=== PATIENT | male | born 1940 | race Caucasian/White ===

== ENCOUNTER 2016-03-21 10:48 | Inpatient (IN) | payer MEDICARE, BC ==
--- NOTE | 2016-03-21 10:24 | HP ---
DATE OF ADMISSION: CHIEF COMPLAINT: Chest pain. Jeison is a 75-year-old gentleman with diabetes, hypertension, dyslipidemia, has coronary risk factors who presented to me last week complaining of precordial chest pain. He describes it as a chest tightness without clear-cut relieving or exacerbating factors, moderate intensity that was going on for about 4 weeks. Patient underwent a stress test and echocardiogram. His stress test revealed evidence of inferior wall myocardial infarction with areas of estephanie-infarct ischemia. Echocardiogram also showed inferior wall [place]. I asked him to come back and see me sooner than his regular appointment and on followup, patient states that he has had episodes of chest discomfort and had to use nitroglycerin following which the pain had resolved. On coming to my office today, he states that he is having intermittent episodes of precordial chest pressure. Due to his symptomatology, risk factors, abnormal stress test, I advised him to undergo cardiac catheterization today. I have explained to him risks benefits, and alternatives, understood and accepted. Past medical history is significant for diabetes, hypertension, dyslipidemia. Medications include: 1. Atorvastatin 40 q. daily. 2. Glyburide. 3. Lisinopril. 4. Pioglitazone. 5. Aspirin. 6. Imdur. 7. Sublingual nitroglycerin on p.r.n. basis. ALLERGIES: He denies any. Family history is significant for premature coronary artery disease. SOCIAL HISTORY: Significant for smoking. There is no history of EtOH abuse or drug abuse. REVIEW OF SYSTEMS: HEENT is unremarkable. CARDIAC: As described above. RESPIRATORY: Negative. GI: Negative. GENITOURINARY: Negative. ALLERGY/IMMUNOLOGY: Negative. SKIN: Negative. MUSCULOSKELETAL: Significant for arthritis. PSYCHOSOCIAL: Negative. ENDOCRINE: Negative. DERMATOLOGICAL: Negative. CONSTITUTIONAL: Negative. ONCOLOGICAL: Negative. The rest of the system review is not relevant. On exam, patient is comfortable at rest. Vital signs are stable. There is no jugular venous distention. Carotid upstroke is normal. There is no bruit. Chest exam reveals good air entry bilaterally. Heart exam reveals first and second heart sounds. No gallop. No murmur, no rub. Abdomen is soft, nontender. Exam of extremities did not reveal edema. Peripheral pulses are felt. Stress test and echo are abnormal as described above. I do not have any labs on him. ASSESSMENT: 1. Unstable angina. 2. Hypertension. 3. Diabetes. PLAN: Patient will undergo cardiac catheterization today. Will obtain a CBC, lytes, BUN, and creatinine prior. He has been explained of risks, benefits, and alternatives.
[~2016-03-21 10:48] MED LIST: ALPRAZolam 0.25 MG TAB PO PRN; ALPRAZolam 0.5 MG TAB PO PRN; ASPIRIN 325 MG TAB PO STA; ATORVASTATIN 80 MG TAB PO STA; NITROGLYCERIN SL TABS 0.4 MG TAB SUBLINGUAL PRN; SODIUM CHLORIDE 0.9% 1,000 ML in EMPTY BAG 1 BAG IV ONE
[2016-03-21] MEDS ORDERED: ASPIRIN 325 MG TAB ONE (10:50)
[2016-03-21] MEDS ORDERED: LIDOCAINE 2% INJ 20 MG/ML (20 ML MDV) ONE (10:53)
[2016-03-21] MEDS ORDERED: MIDAZOLAM 2 MG/2 ML VIAL ONE (10:53)
[2016-03-21] MEDS ORDERED: diphenhydrAMINE 50 MG/ML 1 ML VIAL ONE (10:54)
[2016-03-21 10:59] LABS: Glucose,Whole Blood 147 mg/dL (75-99)
[2016-03-21 11:06] LABS: Basophils % (A) 1 %; CH 29.7; CHCM 33.8; Eosinophils # (A) 0.1 k/uL (0-0.7); Eosinophils % (A) 1 %; HCT 48.7 % (39.0-53.0); HDW 2.39; HGB 16.1 gm/dL (13.0-17.5); Luc % (Auto) 1; Lymphocytes # (A) 1.6 k/uL (1.0-4.8); Lymphocytes % (A) 21 %; MCH 29.2 pg (25.0-35.0); MCHC 33.1 g/dL (31.0-37.0); MCV 88.3 fL (80.0-100.0); Mean Platelet Volume 7.4; Monocytes # (A) 0.6 k/uL (0-1.0); Monocytes % (A) 8 %; Neutrophils # (A) 5.3 k/uL (1.3-7.7); Neutrophils % (A) 69 %; RBC 5.52 m/uL (4.30-5.90); RDW 13.5 % (11.5-15.5); WBC 7.7 k/uL (3.8-10.6); WBC (Perox) 7.66
[2016-03-21] MEDS ORDERED: diphenhydrAMINE 50 MG/ML 1 ML VIAL IVP ONE (11:16)
[2016-03-21] MEDS ORDERED: MIDAZOLAM 2 MG/2 ML VIAL IV ONE (11:16)
[2016-03-21 11:25] LABS: Anion Gap 11 mmol/L; Blood Urea Nitrogen 16 mg/dL (9-20); Calcium 9.3 mg/dL (8.4-10.2); Carbon Dioxide 24 mmol/L (22-30); Chloride 104 mmol/L (98-107); Glucose 157 mg/dL (74-99); Non-African American GFR(MDRD) >60 (>60 ml/min/1.73 sqM); Potassium 4.4 mmol/L (3.5-5.1); Sodium 139 mmol/L (137-145)
[2016-03-21] MEDS ORDERED: BIVALIRUDIN BOLUS 250 MG/50 ML IV ONE (11:49)
[2016-03-21] MEDS ORDERED: BIVALIRUDIN 250 MG in SODIUM CHLORIDE 0.9% 50 ML IV ONE ×4 (11:50)
--- NOTE | 2016-03-21 11:51 | CC ---
DATE OF SERVICE: INDICATION: Unstable angina. PROCEDURE NOTE: After obtaining informed consent, left heart catheterization and coronary angiogram were performed via the right femoral artery using standard Aspen catheters. Patient tolerated the procedure well without any obvious immediate complications. Patient has history of abdominal aortic aneurysm and surgery in the past. Vascular access was obtained uneventfully we used a long exchange length wire to exchange the catheters in the ascending aorta. FINDINGS: 1. HEMODYNAMICS: Left ventricular end-diastolic pressure is 12 to 16 mm. There is no significant gradient across the aortic valve. 2. LEFT VENTRICULOGRAM: Left ventriculogram was not performed. 3. ANGIOGRAPHIC DATA: LEFT MAIN CORONARY ARTERY: Left main coronary artery appears calcified but is free of significant stenosis. It divides into left anterior descending coronary artery and nondominant circumflex coronary artery. LAD in its midportion shows a 90% stenosis. There are left to right collaterals. Right coronary artery is a large dominant vessel, shows irregular ectatic changes with an area of 95% stenosed in its midportion and subtotal occlusion distally prior to bifurcation into PDA and PLV. CONCLUSION: Severe 2-vessel coronary artery disease as described above. PLAN: I am going to review the angiographic data with Dr. Savage, the on-call french folder and see if we can perform catheter-based revascularization. If not, I will refer him to cardiothoracic surgeon for bypass surgery.
[2016-03-21] MEDS ORDERED: NITROGLYCERIN 1000MCG/10ML SYRINGE INTRACORON ONE (12:21)
[2016-03-21] MEDS ORDERED: HYDROmorphone 2 MG/ML 1 ML SYRINGE ONE (12:21)
[2016-03-21] MEDS ORDERED: HYDROmorphone 2 MG/ML 1 ML SYRINGE IV ONE (12:22)
[2016-03-21] MEDS ORDERED: HEPARIN SODIUM,PORCINE/D5W PMX 25,000 UNIT in DEXTROSE/WATER 1 500ML.BAG IV ONE (12:30)
[2016-03-21] MEDS ORDERED: IOHEXOL 350 MG/ML 100 ML BOTTLE INJ ONE (12:37)
[2016-03-21] MEDS ORDERED: ceFAZolin 1,000 MG in SODIUM CHLORIDE 0.9% IRRIGATIO 1,000 ML IRRIGATION ONE (12:50)
[2016-03-21] MEDS ORDERED: MD COMMUNICATION TO PHARMACY 1 EACH MISC PO ONE ×4 (12:50)
[2016-03-21] MEDS ORDERED: CHLORHEXIDINE GLUCONATE 15 ML CUP MUCOUS MEM ONE (12:50)
[2016-03-21] MEDS ORDERED: ceFAZolin 2 GM in SODIUM CHLORIDE 0.9% 30 ML IVPB ONE (12:50)
--- NOTE | 2016-03-21 12:57 | PTCA ---
DATE OF SERVICE: 03/21/2016 PERFORMING PHYSICIAN: Bhaskar Savage MD, bobbin doffer. PROCEDURE PERFORMED: An attempted balloon angioplasty of the mid left anterior descending artery. INDICATION: This is a pleasant 75-year-old gentleman who sees Dr. Ellington as an outpatient with a known history of coronary artery disease, hypertension, dyslipidemia who was experiencing chest discomfort. He underwent a heart catheterization by Dr. Ellington and was found to have totally occluded right coronary artery in the distal portion, which likely to be chronic and critical disease involving the mid left anterior descending artery. The decision was to proceed with a stenting of the mid LAD. APPROACH: Left common femoral artery. COMPLICATIONS: None. LEVEL OF SEDATION: Moderate. PROCEDURE DESCRIPTION: After diagnostic heart catheterization was performed by Dr. Ellington, I decided to pursue with angioplasty on the LAD. Anticoagulation was initiated using Angiomax. The left main was engaged using an XB3.5 LAD guide. A whisper wire was used to wire the LAD. I tried to balloon the LAD using 2.5 x 15 mm balloon but the balloon would not cross the lesion. At that point, I tried 1.5 mm balloon, but the balloon again would not cross the lesion. At that point, I did double wire the LAD using 2 whisper wires. After that, I tried again to advance the 1.5 balloon and the balloon would not cross the lesion, so I tried 1.2 mm balloon and the balloon also would not cross the lesion. The nose of the balloon was by the lesion. I did inflate the balloon under 14 atmospheres ( ) will not open up the lesion. The following angiogram showed the lesion seems to be stable and with GREGORIO-3 flow. At that point, I decided to stop and consult surgery for the evaluation of CABG. CONCLUSION: An attempted balloon angioplasty on critical mid left anterior descending artery.
[2016-03-21] MEDS ORDERED: RX INFO: IV CONTRAST WAS GIVEN 1 EACH MISC MISCELLANE PRN (14:02)
--- NOTE | 2016-03-21 14:10 | P.CNPUL ---
History of Present Illness Consult date: 03/21/16 Requesting physician: Jefe Ellington Reason for consult: other (Preoperative evaluation and pulmonary clearance) Chief complaint: Chest pain History of present illness: This is a 75-year-old white male, heavy smoker, known history of diabetes, hypertension, dyslipidemia, patient presented on outpatient basis with precordial chest pain. His pain was moderate in intensity, and has been going on for about 4 weeks. His stress test revealed evidence of inferior wall myocardial infarction, and areas of estephanie-infarct ischemia. Echocardiogram showed inferior wall ID hence the patient underwent cardiac catheterization by Dr. Williamson, and he was found to have two-vessel disease. Dr. Farley was consulted for angioplasty, of the mid LAD lesion, attempt was made, but angioplasty could not be done. Patient was also found to have totally occluded RCA in the distal portion which was felt to be chronic and there was irregular ectatic changes with an area of 95% stenosed in its midportion and subtotal occlusion distally prior to the bifurcation into PDA and PLV. Considering the patient had failed attempted angioplasty of LAD, cardiac surgery is being consulted, and patient will likely undergo myocardial revascularization in the next couple of days. Going back to his pulmonary status, patient smoked since he was 17 years old, he smoked on average of one pack per day for so many years. However he denies symptoms of cough wheezing or shortness of breath on exertion. Patient was never diagnosed as having COPD, and never had a PFT on outpatient basis. Physically, the patient is quite active, he is able to climb 2 flights of stairs , able to walk a mile easily and does not have symptoms suggestive year COPD. Denies any headaches or blurred vision or dizziness. Denies any nausea vomiting abdominal pain. Denies shortness of breath as noted above. Denies any symptoms to suggest significant degenerative joint disease. Cardiac luque please refer to above. Review of Systems 14 point review of systems were obtained, please refer to pertinent positives and negatives in HPI. Past Medical History Past Medical History: Cancer, Diabetes Mellitus, Eye Disorder, Hypertension, Prostate Disorder Additional Past Medical History / Comment(s): HX MELANOMA, BILAT CATARACTS History of Any Multi-Drug Resistant Organisms: None Reported Additional Past Surgical History / Comment(s): HX COLONOSCOPY, AND AAA-2007 Past Anesthesia/Blood Transfusion Reactions: No Reported Reaction Past Psychological History: Anxiety Smoking Status: Current every day smoker Past Alcohol Use History: None Reported Past Drug Use History: None Reported Medications and Allergies Home Medications Medication Instructions Recorded Confirmed Type Ezetimibe/Simvastatin [Vytorin 1 each PO DAILY 08/20/13 03/21/16 History 10-40 mg Tablet] Lisinopril [Zestril] 10 mg PO DAILY 08/20/13 03/21/16 History Dutasteride/Tamsulosin HCl [Herminia 1 tab PO DAILY 02/24/15 03/21/16 History 0.5-0.4 mg Capsule] Pioglitazone HCl [Pioglitazone HCl] 45 mg PO DAILY 02/24/15 03/21/16 History glyBURIDE/METFORMIN HCL 2 tab PO PC-BRKFST 02/24/15 03/21/16 History [glyBURIDE/METFORMIN HCL 5-500 mg] Fish Oil/Dha/Epa [Fish Oil 1,200 1 cap PO DAILY 03/21/16 03/21/16 History mg Fish Oil] Allergies Allergy/AdvReac Type Severity Reaction Status Date / Time No Known Allergies Allergy Verified 02/24/15 11:23 Physical Exam Vitals: Vital Signs Temp Pulse Resp BP BP Pulse Ox 03/21/16 13:39 64 16 127/65 94 L 03/21/16 13:23 64 16 121/62 95 03/21/16 13:10 70 16 115/64 96 03/21/16 12:55 78 16 130/66 95 03/21/16 11:06 98.2 F 82 16 141/82 96 Intake and Output 03/20/16 03/21/16 03/21/16 22:59 06:59 14:59 Intake Total 240.2 Balance 240.2 Intake: IV 240.2 Sodium Chloride 0.9% 1, 0 000 ml In Empty Bag 1 bag @ 1 ML/KG/HR 97.52 mls/ hr IV .[id number] ONE Rx#: [id number] Other: Weight 97.522 kg Patient Weight 03/22/16 06:59 Weight 97.522 kg Physical Exam: Revealed a 75-year-old in no distress HEENT:[Neck is supple.] [No neck masses.] [No thyromegaly.] [No JVD.] Chest: [Clear throughout, no crackles, no rhonchi, no wheezes.] Cardiac Exam: [Normal S1 and S2, no S3 gallop, no murmur.] Abdomen: [Soft, nontender, no megaly, no rebound, no guarding, normal bowel sounds.] Extremities: [No clubbing, no edema, no cyanosis.] Neurological Exam: [No focal neurologic deficit.] Results - Laboratory Findings CBC and BMP: 03/21/16 10:55 03/21/16 10:55 Abnormal lab findings: Abnormal Labs 03/21/16 03/21/16 10:55 10:57 Creatinine 0.60 L Glucose 157 H POC Glucose (mg/dL) 147 H Assessment and Plan Plan: Impression: 1 2vessel coronary artery disease, patient is yet to be seen by cardiac surgery for possible myocardial revascularization. 2 suspect underlying COPD, probably mild based on his symptoms, however I will go ahead and recommended a bedside PFT and a chest x-ray. 3 history of multiple comorbidities including diabetes, hypertension, dyslipidemia, and recent symptoms of unstable angina. Recommendation: Based on the clinical findings, patient is considered low operative risk, however I will go ahead and recommended a bedside PFT and a chest x-ray for further evaluation of his underlying COPD. We'll continue to follow. Time with Patient: Greater than 30
[2016-03-21] MEDS ORDERED: SODIUM CHLORIDE 0.9% 1,000 ML IV SCH (14:15)
[2016-03-21] MEDS ORDERED: HEPARIN SODIUM,PORCINE 5,000 UNIT/ML 1 ML VIAL IV PRN (14:21)
[2016-03-21] MEDS ORDERED: ATROPINE SULFATE 0.1 MG/ML 10ML SYRINGE ONE (14:41)
--- NOTE | 2016-03-21 14:55 | P.GSCN ---
History of Present Illness Consult date: 03/21/16 Reason for Consult: coronary artery disease History of present illness: The patient is a 75 year old male who reports intermittent chest pain accompanied by mild shortness of breath for several weeks now. He also reports radiation to the left upper extremity. Stress test was found to be abnormal. Cardiac catheterization today revealed a high grade LAD lesion which was not amenable to PCI. I was asked to evaluate him for treatment recommendations. His was present at the time of my evaluation. Review of Systems All systems: negative - Cardiovascular Reports chest pain, Reports dyspnea on exertion - Genitourinary Reports urinary hesitancy Past Medical History Past Medical History: Cancer, Diabetes Mellitus, Eye Disorder, Hyperlipidemia, Hypertension, Prostate Disorder Additional Past Medical History / Comment(s): HX MELANOMA, BILAT CATARACTS History of Any Multi-Drug Resistant Organisms: None Reported Past Surgical History: Tonsillectomy Additional Past Surgical History / Comment(s): HX COLONOSCOPY, AND AAA-2007 Past Anesthesia/Blood Transfusion Reactions: No Reported Reaction Past Psychological History: Anxiety Smoking Status: Current every day smoker Past Alcohol Use History: None Reported Past Drug Use History: None Reported Medications and Allergies Home Medications Medication Instructions Recorded Confirmed Type Ezetimibe/Simvastatin [Vytorin 1 each PO DAILY 08/20/13 03/21/16 History 10-40 mg Tablet] Lisinopril [Zestril] 10 mg PO DAILY 08/20/13 03/21/16 History Dutasteride/Tamsulosin HCl [Herminia 1 tab PO DAILY 02/24/15 03/21/16 History 0.5-0.4 mg Capsule] Pioglitazone HCl [Pioglitazone HCl] 45 mg PO DAILY 02/24/15 03/21/16 History glyBURIDE/METFORMIN HCL 2 tab PO PC-BRKFST 02/24/15 03/21/16 History [glyBURIDE/METFORMIN HCL 5-500 mg] Fish Oil/Dha/Epa [Fish Oil 1,200 1 cap PO DAILY 03/21/16 03/21/16 History mg Fish Oil] Allergies Allergy/AdvReac Type Severity Reaction Status Date / Time No Known Allergies Allergy Verified 02/24/15 11:23 Surgical - Exam Vital Signs Temp Pulse Resp BP Pulse Ox 98.2 F 82 16 141/82 96 03/21/16 11:06 03/21/16 11:06 03/21/16 11:06 03/21/16 11:06 03/21/16 11:06 - General well developed, well nourished, no distress - Eyes normal ocular movement - Neck no masses, trachea midline - Respiratory normal expansion, normal respiratory effort, clear to auscultation - Cardiovascular Rhythm: regular Heart Sounds: normal: S1, S2 - Abdomen Abdomen: soft, non tender - Integumentary no rash - Psychiatric oriented to time, oriented to person, oriented to place Results - Labs 03/21/16 10:55 03/21/16 10:55 Abnormal Lab Results - Last 24 Hours (Table) 03/21/16 03/21/16 Range/Units 10:55 10:57 Creatinine 0.60 L (0.66-1.25) mg/dL Glucose 157 H (74-99) mg/dL POC Glucose (mg/dL) 147 H (75-99) mg/dL Diabetes panel 03/21/16 Range/Units 10:55 Sodium 139 (137-145) mmol/L Potassium 4.4 (3.5-5.1) mmol/L Chloride 104 (98-107) mmol/L Carbon Dioxide 24 (22-30) mmol/L BUN 16 (9-20) mg/dL Creatinine 0.60 L (0.66-1.25) mg/dL Glucose 157 H (74-99) mg/dL Calcium 9.3 (8.4-10.2) mg/dL Calcium panel 03/21/16 Range/Units 10:55 Calcium 9.3 (8.4-10.2) mg/dL Pituitary panel 03/21/16 Range/Units 10:55 Sodium 139 (137-145) mmol/L Potassium 4.4 (3.5-5.1) mmol/L Chloride 104 (98-107) mmol/L Carbon Dioxide 24 (22-30) mmol/L BUN 16 (9-20) mg/dL Creatinine 0.60 L (0.66-1.25) mg/dL Glucose 157 H (74-99) mg/dL Calcium 9.3 (8.4-10.2) mg/dL Adrenal panel 03/21/16 Range/Units 10:55 Sodium 139 (137-145) mmol/L Potassium 4.4 (3.5-5.1) mmol/L Chloride 104 (98-107) mmol/L Carbon Dioxide 24 (22-30) mmol/L BUN 16 (9-20) mg/dL Creatinine 0.60 L (0.66-1.25) mg/dL Glucose 157 H (74-99) mg/dL Calcium 9.3 (8.4-10.2) mg/dL Assessment and Plan (1) Coronary artery disease Status: Acute Plan: The patient's cardiac catheterization was personally reviewed. He appears to have targets suitable for bypass. He has a high grade LAD lesion which is likely his culprit lesion. He also has an occluded, heavily calcified distal RCA. It is difficult to tell whether there is a target amenable to bypass in the right system. PCI was unable to be performed by Dr. Yost. A coronary artery bypass was recommended. The risks, benefits, and alternatives to surgery were discussed with the patient and his . All questions were answered. He is currently chest-pain free and resting comfortably following cardiac catheterization. We will therefore proceed with pre-operative workup. He has been tentatively scheduled for 03/23/2016. Time with Patient: Greater than 30
[2016-03-21 15:00] LABS: Basophils % (A) 1 %; CH 29.5; CHCM 33.4; Eosinophils # (A) 0.1 k/uL (0-0.7); Eosinophils % (A) 1 %; HCT 45.6 % (39.0-53.0); HDW 2.38; Luc # (Auto) 0.09; Luc % (Auto) 2; Lymphocytes # (A) 1.7 k/uL (1.0-4.8); Lymphocytes % (A) 29 %; MCH 29.3 pg (25.0-35.0); Mean Platelet Volume 7.2; Monocytes # (A) 0.4 k/uL (0-1.0); Monocytes % (A) 7 %; Neutrophils # (A) 3.6 k/uL (1.3-7.7); Neutrophils % (A) 61 %; RBC 5.12 m/uL (4.30-5.90); RDW 13.4 % (11.5-15.5); WBC 5.9 k/uL (3.8-10.6); WBC (Perox) 5.52
[2016-03-21 15:09] LABS: INR 1.2 (<1.1); Partial Thromboplastin Time 46.2 sec (22.0-30.0); Prothrombin Time 12.2 sec (9.0-12.0)
[2016-03-21 15:12] LABS: Hemoglobin A1C 7.8 % (4.2-6.1)
[2016-03-21 15:15] LABS: ALT 30 U/L (21-72); AST 15 U/L (17-59); Alkaline Phosphatase 57 U/L (38-126); Anion Gap 7 mmol/L; Blood Urea Nitrogen 14 mg/dL (9-20); Calcium 8.7 mg/dL (8.4-10.2); Carbon Dioxide 29 mmol/L (22-30); Chloride 103 mmol/L (98-107); Cholesterol 130 mg/dL (<200); Glucose 72 mg/dL (74-99); HDL Cholesterol 43 mg/dL (40-60); Magnesium 1.9 mg/dL (1.6-2.3); Non-African American GFR(MDRD) >60 (>60 ml/min/1.73 sqM); Potassium 4.5 mmol/L (3.5-5.1); Sodium 139 mmol/L (137-145); Total Bilirubin 0.7 mg/dL (0.2-1.3); Total Protein 6.2 g/dL (6.3-8.2); Triglycerides 79 mg/dL (<150)
[2016-03-21 15:44] LABS: Hepatitis B Surface Ag Index 0.05
[2016-03-21 15:50] LABS: Hepatitis B Core IgM Index 0.03
[2016-03-21 16:01] LABS: Hepatitis C Virus IgG Index 0.06
[2016-03-21 16:06] LABS: Hepatitis C Virus IgG Ab Negative (Negative)
--- NOTE | 2016-03-21 17:10 | CONS ---
DATE OF CONSULTATION: REASON FOR CONSULTATION: Management of diabetes mellitus and recommendations regarding diabetic medications. HISTORY OF PRESENT ILLNESS: The patient is a 75-year-old gentleman with a history of diabetes mellitus, dyslipidemia, came in with chest pain and found to have positive stress test. Patient underwent cardiac catheterization, which showed two vessel disease involving the mid LAD because of which cardiothoracic surgery evaluated and patient is scheduled to get coronary artery bypass grafting and patient had failed attempted angioplasty of LAD. Patient denied any chest pain at this point of time. Denied any fever, chills, nausea, vomiting, abdominal pain. REVIEW OF SYSTEMS: CONSTITUTIONAL: No fever, no malaise, no fatigue. HEENT: No recent visual problems or hearing problems. Denied any sore throat. CARDIOVASCULAR: No chest pain, orthopnea, PND, no palpitations, no syncope. PULMONARY: No shortness of breath, no cough, no hemoptysis. GASTROINTESTINAL: No diarrhea, no nausea, no vomiting, no abdominal pain. Normoactive bowel sounds. NEUROLOGICAL: No headaches, no weakness, no numbness. HEMATOLOGICAL: Denies any bleeding or petechiae. GENITOURINARY: Denies any burning micturition, frequency, or urgency. MUSCULOSKELETAL/RHEUMATOLOGICAL: Denies any joint pain, swelling, or any muscle pain. ENDOCRINE: Denies any polyuria or polydipsia. The rest of the 14 point review of systems is negative. PAST MEDICAL HISTORY: Cancer, type 2 diabetes mellitus, hypertension, benign prostatic hypertrophy, melanoma, bilateral cataracts, history of colonoscopy in the past, abdominal aortic aneurysm in 2007, anxiety disorder. The patient does smoke. Denied any alcohol abuse or any drug abuse. FAMILY HISTORY: Significant for COPD and emphysema in the family. PHYSICAL EXAMINATION: Temperature 98.7, pulse of 88, respiratory rate of 18, blood pressure 124/67, saturating at 92% on room air. GENERAL: The patient is alert and oriented x3, not in any acute distress. Well developed, well nourished. HEENT: Pupils are round and equally reacting to light. EOMI. No scleral icterus. No conjunctival pallor. Normocephalic, atraumatic. No pharyngeal erythema. No thyromegaly. CARDIOVASCULAR: S1 and S2 present. No murmurs, rubs, or gallops. PULMONARY: Chest is clear to auscultation, no wheezing or crackles. ABDOMEN: Soft, nontender, nondistended, normoactive bowel sounds. No palpable organomegaly. MUSCULOSKELETAL: No joint swelling or deformity. EXTREMITIES: No cyanosis, clubbing, or pedal edema. NEUROLOGICAL: Gross neurological examination did not reveal any focal deficits. SKIN: No rashes. LABORATORY DATA: CMP, essentially within normal limits. ASSESSMENT AND PLAN: 1. Coronary artery disease with two vessel occlusion and patient appears to have either ( ) patient may have had either [id number] myocardial infarction or unstable angina. Patient is scheduled to get coronary artery bypass grafting here. 2. Chronic obstructive pulmonary disease without any acute exacerbation. 3. Nicotine abuse. Counseling was provided. 4. Hypertension. Management I will leave it up to cardiology. 5. Type 2 diabetes mellitus. Hold off on diabetic medications. Patient's hemoglobin A1C is elevated. We will start him on sliding scale. Patient may end up needing Lantus at this time. Thank you for letting me participate in the patient's care.
--- NOTE | 2016-03-21 17:43 | US ---
EXAMINATION TYPE: US carotid duplex BILAT DATE OF EXAM: 03/21/2016 4:44 PM COMPARISON: NONE CLINICAL HISTORY: Pre CABG evaluation. EXAM MEASUREMENTS: RIGHT: Peak Systolic Velocity (PSV) cm/sec ----- Right CCA: 48.3 ----- Right ICA: 67.1 ----- Right ECA: 62.6 ICA/CCA ratio: 1.4 RIGHT: End Diastole cm/sec ----- Right CCA: 6.5 ----- Right ICA: 14.7 ----- Right ECA: 9.8 LEFT: Peak Systolic Velocity (PSV) cm/sec ----- Left CCA: 80.5 ----- Left ICA: 59.2 ----- Left ECA: 65.9 ICA/CCA ratio: 0.7 LEFT: End Diastole cm/sec ----- Left CCA: 17.1 ----- Left ICA: 16.5 ----- Left ECA: 7.6 VERTEBRALS (direction of flow): Right Vertebral: Antegrade Left Vertebral: Antegrade TECHNOLOGIST IMPRESSION: No abnormally elevated velocities are noted in bilateral carotid systems, b ut intimal wall changes are present at bilateral carotid bifurcation. Atheromatous plaque is present on the left. Significant flow-limiting stenosis is not identified base d on velocities. IMPRESSION: 1. Intimal thickening with some plaquing present on the left. Significant flow-limiting stenosis by u ltrasound velocity is not evident. Criteria for Assigning % of Stenosis / Diameter reduction (Estimation based on the indirect measurements of the internal carotid artery velocities (ICA PSV). 1. Normal (no stenosis)=ICA PSV < 125 cm/s: ratio < 2.0: ICA EDV<40 cm/s. 2. Less than 50% stenosis=ICA PSV < 125 cm/s: ratio < 2.0: ICA EDV<40 cm/s. 3. 50 to 69% stenosis=ICA PSV of 125 to 230 cm/s: ration 2.0 ? 4.0: ICA EDV 40-100 cm/s. 4. Greater than 70% stenosis to near occlusion= ICA PSV > 230 cm/s: ratio > 4.0: ICA EDV > 100 cm/s. 5. Near occlusion= ICA PSV velocities may be low or undetectable: variable ratio and ICA EDV. 6. Total occlusion=unable to detect flow.
[2016-03-21] MEDS: HEPARIN SODIUM,PORCINE/D5W PMX 25,000 UNIT in DEXTROSE/WATER 1 500ML.BAG IV SCH (17:57)
[2016-03-21 20:44] LABS: Appearance,Urine Clear (Clear); Bilirubin,Urine Negative (Negative); Glucose,Urine (UA) Trace (Negative); Ketones,Urine Negative (Negative); Leukocyte Esterase,Urine Negative (Negative); Nitrite,Urine Negative (Negative); PH, Urine 6.5 (5.0-8.0); Protein,Urine Negative (Negative); Specific Gravity,Urine 1.041 (1.001-1.035); UA Billing (MACRO vs. MICRO) CHEM; Urobilinogen,Urine <2.0 mg/dL (<2.0)
[2016-03-21 22:54] LABS: Glucose,Whole Blood 136 mg/dL (75-99)
[2016-03-21] MEDS: METOPROLOL TARTRATE 12.5 MG TAB PO SCH (23:03)
[2016-03-21] MEDS: MUPIROCIN 2% OINT 22 GM TUBE NASAL SCH (23:06)
[2016-03-22 04:10] LABS: Basophils % (A) 0 %; CH 29.9; CHCM 33.1; Eosinophils # (A) 0.1 k/uL (0-0.7); Eosinophils % (A) 1 %; HCT 48.3 % (39.0-53.0); HDW 2.37; HGB 15.5 gm/dL (13.0-17.5); Luc # (Auto) 0.08; Luc % (Auto) 1; Lymphocytes # (A) 1.9 k/uL (1.0-4.8); Lymphocytes % (A) 22 %; MCH 29.2 pg (25.0-35.0); MCHC 32.2 g/dL (31.0-37.0); MCV 90.8 fL (80.0-100.0); Mean Platelet Volume 7.1; Monocytes # (A) 0.6 k/uL (0-1.0); Monocytes % (A) 7 %; Neutrophils # (A) 5.9 k/uL (1.3-7.7); Neutrophils % (A) 69 %; RBC 5.32 m/uL (4.30-5.90); RDW 13.4 % (11.5-15.5); WBC 8.5 k/uL (3.8-10.6); WBC (Perox) 8.92
[2016-03-22 06:02] LABS: Glucose,Whole Blood 140 mg/dL (75-99)
[2016-03-22] MEDS: INSULIN LISPRO (humaLOG) 300 UNIT/3 ML VIAL SQ SCH ×4 (06:52→21:27)
[2016-03-22] MEDS: METOPROLOL TARTRATE 12.5 MG TAB PO SCH ×2 (08:46→21:27)
[2016-03-22] MEDS: FINASTERIDE 5 MG TAB PO SCH (08:46)
[2016-03-22] MEDS: TAMSULOSIN 0.4 MG CAP.ER.24H PO SCH (08:46)
[2016-03-22] MEDS: MUPIROCIN 2% OINT 22 GM TUBE NASAL SCH ×2 (08:47→21:27)
--- NOTE | 2016-03-22 10:15 | XR ---
EXAMINATION TYPE: XR chest 2V DATE OF EXAM: 03/22/2016 9:37 AM COMPARISON: 02/24/2015 HISTORY: 75-year-old male preoperative cardiac surgery TECHNIQUE: Frontal and lateral views FINDINGS: Heart is normal size. Aorta within normal limits. There is mild interstitial prominence with mild hyp erinflation suggesting underlying emphysema. No consolidation or pleural effusion seen. IMPRESSION: Chronic changes, possible underlying COPD. No acute process seen.
--- NOTE | 2016-03-22 10:15 | P.PN ---
Subjective Principal diagnosis: Coronary artery disease requiring coronary artery bypass grafting. Patient currently sitting up in bed in no apparent distress. Denies any complaints. Objective - Vital Signs Vital signs: Vital Signs Temp 96.8 F L 03/22/16 08:00 Pulse 60 03/22/16 08:00 Resp 18 03/22/16 08:00 BP 140/73 03/22/16 08:00 Pulse Ox 95 03/22/16 08:00 Intake & Output 03/21/16 03/22/16 03/22/16 18:59 06:59 18:59 Intake Total 240.2 512.680 Output Total 1340 600 Balance 240.2 -827.320 -600 Weight 97.522 kg 94.4 kg Intake: IV 240.2 Sodium Chloride 0.9% 1, 0 000 ml In Empty Bag 1 bag @ 1 ML/KG/HR 97.52 mls/ hr IV .[id number] ONE Rx#: [id number] Intake, IV Titration 272.680 Amount Heparin Sodium,Porcine/ 272.680 D5w Pmx 25,000 unit In Dextrose/Water 1 500ml. bag @ 10.25 UNITS/KG/HR 19.99 mls/hr IV .Q24H [facility] Rx#:[id number] Oral 240 Output: Urine 1340 600 Other: Voiding Method Urinal Urinal # Voids 1 1 - Constitutional General appearance: Present: cooperative, no acute distress - Respiratory Details: Lungs sounds diminished in the bases bilaterally, respirations even and nonlabored. Currently on room air. - Cardiovascular Details: Clear S1-S2. Regular rate and rhythm, sinus bradycardia on the monitor. No edema present. Palpable radial, DP, PT pulses. - Gastrointestinal Gastrointestinal Comment(s): Abdomen soft, nontender, nondistended. Active bowel sounds 4 quadrants. Tolerating diet. - Genitourinary Genitourinary Comment(s): Voiding clear yellow urine per urinal - Integumentary Integumentary Comment(s): Skin warm, pink, dry, intact. Right groin status post cardiac cath soft, nontender. - Neurologic Neurologic Comment(s): Alert and oriented 3. Following all commands. - Musculoskeletal Musculoskeletal Comment(s): Able to ambulate to and from the bathroom. - Psychiatric Psychiatric: Present: appropriate affect, intact judgment & insight - Allied health notes Allied health notes reviewed: nursing - Labs CBC & Chem 7: 03/22/16 03:58 03/21/16 14:44 Labs: Abnormal Lab Results - Last 24 Hours (Table) 03/21/16 03/21/16 03/21/16 Range/Units 10:55 10:57 14:44 PT (9.0-12.0) sec APTT (22.0-30.0) sec Creatinine 0.60 L (0.66-1.25) mg/dL Glucose 157 H 72 L (74-99) mg/dL POC Glucose (mg/dL) 147 H (75-99) mg/dL Hemoglobin A1c (4.2-6.1) % AST 15 L (17-59) U/L Total Protein 6.2 L (6.3-8.2) g/dL Ur Specific [place] (1.001-1.035) Urine Glucose (UA) (Negative) Crossmatch 03/21/16 03/21/16 03/21/16 Range/Units 14:44 14:44 20:28 PT 12.2 H (9.0-12.0) sec APTT 46.2 H 35.0 H (22.0-30.0) sec Creatinine (0.66-1.25) mg/dL Glucose (74-99) mg/dL POC Glucose (mg/dL) (75-99) mg/dL Hemoglobin A1c 7.8 H (4.2-6.1) % AST (17-59) U/L Total Protein (6.3-8.2) g/dL Ur Specific [place] (1.001-1.035) Urine Glucose (UA) (Negative) Crossmatch 03/21/16 03/21/16 03/22/16 Range/Units 20:39 22:53 03:58 PT (9.0-12.0) sec APTT (22.0-30.0) sec Creatinine (0.66-1.25) mg/dL Glucose (74-99) mg/dL POC Glucose (mg/dL) 136 H (75-99) mg/dL Hemoglobin A1c (4.2-6.1) % AST (17-59) U/L Total Protein (6.3-8.2) g/dL Ur Specific [place] 1.041 H (1.001-1.035) Urine Glucose (UA) Trace H (Negative) Crossmatch See Detail 03/22/16 03/22/16 Range/Units 03:58 06:01 PT (9.0-12.0) sec APTT 50.4 H (22.0-30.0) sec Creatinine (0.66-1.25) mg/dL Glucose (74-99) mg/dL POC Glucose (mg/dL) 140 H (75-99) mg/dL Hemoglobin A1c (4.2-6.1) % AST (17-59) U/L Total Protein (6.3-8.2) g/dL Ur Specific [place] (1.001-1.035) Urine Glucose (UA) (Negative) Crossmatch Microbiology - Last 24 Hours (Table) 03/21/16 20:39 Urine Culture - Preliminary Urine,Clean Catch 03/21/16 14:56 Nasal Screen MRSA/MSSA (JESSY) - Preliminary Nasal Swab Assessment and Plan (1) Coronary artery disease Status: Acute (2) Hypertension Status: Acute (3) Hyperlipidemia Status: Acute (4) Diabetes mellitus Status: Acute Plan: 1. Continue aspirin, beta micaela, statin. 2. Hold Plavix, Enoch 3. Await results of all preoperative testing. 4. Preop teaching started, continue teaching. 5. Anticipate coronary artery bypass grafting tomorrow pending results of preop testing. 6. More recs to follow dependent on patient's status. Time with Patient: Greater than 30
--- NOTE | 2016-03-22 10:23 | CT ---
EXAMINATION TYPE: CT chest wo con DATE OF EXAM: 03/22/2016 9:49 AM COMPARISON: 03/22/2016 HISTORY: 75-year-old male precardiac surgery TECHNIQUE: Contiguous axial scanning of the chest without IV contrast. Coronal and sagittal reconstru ctions performed. CT DLP: 321.50 mGycm Automated exposure control for dose reduction was used. FINDINGS: The heart is upper limits of normal in size without pericardial effusion. Coronary vessel calcificati ons are present under a marker for coronary artery disease. There is borderline aneurysm of the ascending aorta at 4.0 cm with mild atherosclerotic arch calcific ations, conventional arch vessel branching anatomy, and mild aneurysm of the upper descending thoraci c aorta at 3.2 cm. There is ectasia of the lower descending thoracic aorta near the diaphragmatic hia tus at 2.8 cm. Large caliber to the right and left main pulmonary arteries at 2.7 and 2.9 cm, respectively, suggesti ng underlying pulmonary arterial hypertension. Nonenlarged mediastinal lymph nodes measure up to 7 mm in the prevascular space and 9 mm at the right tracheobronchial angle. No thoracic lymphadenopathy by CT size criteria. There is mild diffuse bronchial wall thickening with minimal scattered emphysematous cysts. Dependent atelectasis posteriorly within the lungs. No consolidation or pleural effusion. There is a 6 mm anterior right middle lobe pulmonary nodule axial image 35 which warrants further fol low-up. Visualized upper abdomen shows either dense inspissated sludge within the gallbladder or gravel. If I V contrast was recently given to the patient and the patient has renal failure, this could also repre sent vicarious excretion of contrast from the biliary system. The hilar splenule is present. Bones: Endplate spondylosis lower thoracic spine. No osseous destructive process. IMPRESSION: 1. MILD DIFFUSE BRONCHIAL WALL THICKENING SUGGESTS BRONCHITIS OR CHRONIC ASTHMA. MINIMAL SCATTERED EM PHYSEMATOUS CYSTS ARE PRESENT. 2. FINDINGS SUGGEST UNDERLYING PULMONARY ARTERIAL HYPERTENSION. 3. 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 4. 6 MM RIGHT MIDDLE LOBE PULMONARY NODULE. RECOMMEND 6, 12, AND 24 MONTH FOLLOW-UP EXAMS TO ENSURE S TABILITY AND A BENIGN ETIOLOGY. 5. SOME DENSE LAYERING MATERIAL WITHIN THE PARTIALLY VISUALIZED GALLBLADDER. UNCERTAIN IF THIS REPRES ENTS INSPISSATED SLUDGE, GRAVEL, OR IF THE PATIENT RECEIVED IV CONTRAST RECENTLY AND HAS RENAL FAILU RE, VICARIOUS EXCRETION OF CONTRAST FROM THE BILIARY SYSTEM IS AN ADDITIONAL POSSIBILITY.
[2016-03-22] MEDS ORDERED: IPRATROPIUM-ALBUTEROL 3 ML NEB INHALATION PRN (11:07)
[2016-03-22 11:46] LABS: Glucose,Whole Blood 175 mg/dL (75-99)
[2016-03-22] MEDS: LISINOPRIL 5 MG TAB PO SCH (12:10)
--- NOTE | 2016-03-22 12:53 | P.PN ---
Subjective Principal diagnosis: Unstable angina History of present illness: This is a 75-year-old white male, heavy smoker, known history of diabetes, hypertension, dyslipidemia, patient presented on outpatient basis with precordial chest pain. His pain was moderate in intensity, and has been going on for about 4 weeks. His stress test revealed evidence of inferior wall myocardial infarction, and areas of estephanie-infarct ischemia. Echocardiogram showed inferior wall TN hence the patient underwent cardiac catheterization by Dr. Williamson, and he was found to have two-vessel disease. Dr. Farley was consulted for angioplasty, of the mid LAD lesion, attempt was made, but angioplasty could not be done. Patient was also found to have totally occluded RCA in the distal portion which was felt to be chronic and there was irregular ectatic changes with an area of 95% stenosed in its midportion and subtotal occlusion distally prior to the bifurcation into PDA and PLV. Considering the patient had failed attempted angioplasty of LAD, cardiac surgery is being consulted, and patient will likely undergo myocardial revascularization in the next couple of days. Going back to his pulmonary status, patient smoked since he was 17 years old, he smoked on average of one pack per day for so many years. However he denies symptoms of cough wheezing or shortness of breath on exertion. Patient was never diagnosed as having COPD, and never had a PFT on outpatient basis. Physically, the patient is quite active, he is able to climb 2 flights of stairs , able to walk a mile easily and does not have symptoms suggestive year COPD. Denies any headaches or blurred vision or dizziness. Denies any nausea vomiting abdominal pain. Denies shortness of breath as noted above. Denies any symptoms to suggest significant degenerative joint disease. Cardiac luque please refer to above. Patient was reevaluated today on 03/22/2016, he continues to do well, however on physical examination he was noted to have some wheezing hence I started the patient today on DuoNeb. Patient is scheduled to undergo myocardial revascularization tomorrow in a.m. CT of the chest was reviewed, bedside PFT is pending. Objective - Vital Signs Vital signs: Vital Signs Temp 97.4 F L 03/22/16 11:56 Pulse 59 L 03/22/16 11:56 Resp 18 03/22/16 11:56 BP 148/75 03/22/16 11:56 Pulse Ox 97 03/22/16 11:56 Intake & Output 03/21/16 03/22/16 03/22/16 18:59 06:59 18:59 Intake Total 240.2 512.680 Output Total 1340 600 Balance 240.2 -827.320 -600 Weight 97.522 kg 94.4 kg Intake: IV 240.2 Sodium Chloride 0.9% 1, 0 000 ml In Empty Bag 1 bag @ 1 ML/KG/HR 97.52 mls/ hr IV .[id number] [facility] Rx#: [id number] Intake, IV Titration 272.680 Amount Heparin Sodium,Porcine/ 272.680 D5w Pmx 25,000 unit In Dextrose/Water 1 500ml. bag @ 10.25 UNITS/KG/HR 19.99 mls/hr IV .Q24H [facility] Rx#:[id number] Oral 240 Output: Urine 1340 600 Other: Voiding Method Urinal Urinal # Voids 1 1 - Exam Physical Exam: Revealed a 75-year-old white male in no distress HEENT:[Neck is supple.] [No neck masses.] [No thyromegaly.] [No JVD.] Chest: [Relatively clear except for some wheezing on forced expiratory maneuver] Cardiac Exam: [Normal S1 and S2, no S3 gallop, no murmur.] Abdomen: [Soft, nontender, no megaly, no rebound, no guarding, normal bowel sounds.] Extremities: [No clubbing, no edema, no cyanosis.] Neurological Exam: [No focal neurologic deficit.] - Labs CBC & Chem 7: 03/22/16 03:58 03/21/16 14:44 Labs: Abnormal Lab Results - Last 24 Hours (Table) 03/21/16 03/21/16 03/21/16 Range/Units 14:44 14:44 14:44 PT 12.2 H (9.0-12.0) sec APTT 46.2 H (22.0-30.0) sec Glucose 72 L (74-99) mg/dL POC Glucose (mg/dL) (75-99) mg/dL Hemoglobin A1c 7.8 H (4.2-6.1) % AST 15 L (17-59) U/L Total Protein 6.2 L (6.3-8.2) g/dL Ur Specific [place] (1.001-1.035) Urine Glucose (UA) (Negative) Crossmatch 03/21/16 03/21/16 03/21/16 Range/Units 20:28 20:39 22:53 PT (9.0-12.0) sec APTT 35.0 H (22.0-30.0) sec Glucose (74-99) mg/dL POC Glucose (mg/dL) 136 H (75-99) mg/dL Hemoglobin A1c (4.2-6.1) % AST (17-59) U/L Total Protein (6.3-8.2) g/dL Ur Specific [place] 1.041 H (1.001-1.035) Urine Glucose (UA) Trace H (Negative) Crossmatch 03/22/16 03/22/16 03/22/16 Range/Units 03:58 03:58 06:01 PT (9.0-12.0) sec APTT 50.4 H (22.0-30.0) sec Glucose (74-99) mg/dL POC Glucose (mg/dL) 140 H (75-99) mg/dL Hemoglobin A1c (4.2-6.1) % AST (17-59) U/L Total Protein (6.3-8.2) g/dL Ur Specific [place] (1.001-1.035) Urine Glucose (UA) (Negative) Crossmatch See Detail 03/22/16 Range/Units 11:42 PT (9.0-12.0) sec APTT (22.0-30.0) sec Glucose (74-99) mg/dL POC Glucose (mg/dL) 175 H (75-99) mg/dL Hemoglobin A1c (4.2-6.1) % AST (17-59) U/L Total Protein (6.3-8.2) g/dL Ur Specific [place] (1.001-1.035) Urine Glucose (UA) (Negative) Crossmatch Microbiology - Last 24 Hours (Table) 03/21/16 20:39 Urine Culture - Preliminary Urine,Clean Catch 03/21/16 14:56 Nasal Screen MRSA/MSSA (JESSY) - Preliminary Nasal Swab Assessment and Plan Plan: Impression: 1 2vessel coronary artery disease, patient is scheduled for myocardial revascularization in a.m. 2 suspect underlying COPD, probably mild based on his symptoms, patient was placed on DuoNeb updrafts 4 times a day and when necessary, and I would likely review his bedside PFT if done today. 3 history of multiple comorbidities including diabetes, hypertension, dyslipidemia, and recent symptoms of unstable angina. Recommendation: Based on the clinical findings, patient is considered low operative risk, Time with Patient: Less than 30
--- NOTE | 2016-03-22 16:08 | P.PN ---
Subjective Principal diagnosis: CAD This is a pleasant 75-year-old gentleman with history of diabetes, hypertension, hyperlipidemia, who was admitted to the hospital by Dr. Williamson to undergo a cardiac catheterization. Patient has a known history of hypertension , hyperlipidemia, diabetes. Cardiac catheterization was performed which revealed severe two-vessel coronary artery disease. An attempt was made at angioplasty of the mid LAD which was unsuccessful. Patient was then recommended to be referred to cardiothoracic surgery for coronary artery bypass grafting surgery. He was seen in consultation by Cardiothoracic surgery and is scheduled to undergo coronary artery bypass grafting surgery tomorrow. Patient was seen and examined today, no chest pain or difficulty in breathing. Hemodynamically stable. Objective - Vital Signs Vital signs: Vital Signs Temp 97.4 F L 03/22/16 15:16 Pulse 66 03/22/16 15:16 Resp 18 03/22/16 15:16 BP 134/78 03/22/16 15:16 Pulse Ox 96 03/22/16 15:16 Intake & Output 03/21/16 03/22/16 03/22/16 18:59 06:59 18:59 Intake Total 240.2 512.680 400 Output Total 1340 1050 Balance 240.2 -827.320 -650 Weight 97.522 kg 94.4 kg Intake: IV 240.2 Sodium Chloride 0.9% 1, 0 000 ml In Empty Bag 1 bag @ 1 ML/KG/HR 97.52 mls/ hr IV .[id number] [facility] Rx#: [id number] Intake, IV Titration 272.680 Amount Heparin Sodium,Porcine/ 272.680 D5w Pmx 25,000 unit In Dextrose/Water 1 500ml. bag @ 10.25 UNITS/KG/HR 19.99 mls/hr IV .Q24H [facility] Rx#:[id number] Oral 240 400 Output: Urine 1340 1050 Other: Voiding Method Urinal Urinal # Voids 1 1 - Exam PHYSICAL EXAMINATION: HEENT: Head is atraumatic, normocephalic. Pupils equal, round. Neck is supple. There is no elevated jugular venous pressure. HEART EXAMINATION: Heart S1, S2 normal. No murmur or gallop heard. CHEST EXAMINATION: Lungs are clear to auscultation and precussion. No chest wall tenderness is noted on palpation or with deep breathing. ABDOMEN: Soft, nontender. Bowel sounds are heard. No organomegaly noted. Right groin soft, no evidence of any hematoma. EXTREMITIES: 2+ peripheral pulses with no evidence of peripheral edema and no calf tenderness noted. NEUROLOGIC patient is awake, alert and oriented -3. . - Labs CBC & Chem 7: 03/22/16 03:58 03/21/16 14:44 Labs: Abnormal Lab Results - Last 24 Hours (Table) 03/21/16 03/21/16 03/21/16 Range/Units 14:44 20:28 20:39 APTT 35.0 H (22.0-30.0) sec Glucose 72 L (74-99) mg/dL POC Glucose (mg/dL) (75-99) mg/dL AST 15 L (17-59) U/L Total Protein 6.2 L (6.3-8.2) g/dL Ur Specific [place] 1.041 H (1.001-1.035) Urine Glucose (UA) Trace H (Negative) Crossmatch 03/21/16 03/22/16 03/22/16 Range/Units 22:53 03:58 03:58 APTT 50.4 H (22.0-30.0) sec Glucose (74-99) mg/dL POC Glucose (mg/dL) 136 H (75-99) mg/dL AST (17-59) U/L Total Protein (6.3-8.2) g/dL Ur Specific [place] (1.001-1.035) Urine Glucose (UA) (Negative) Crossmatch See Detail 03/22/16 03/22/16 Range/Units 06:01 11:42 APTT (22.0-30.0) sec Glucose (74-99) mg/dL POC Glucose (mg/dL) 140 H 175 H (75-99) mg/dL AST (17-59) U/L Total Protein (6.3-8.2) g/dL Ur Specific [place] (1.001-1.035) Urine Glucose (UA) (Negative) Crossmatch Microbiology - Last 24 Hours (Table) 03/21/16 20:39 Urine Culture - Preliminary Urine,Clean Catch 03/21/16 14:56 Nasal Screen MRSA/MSSA (JESSY) - Preliminary Nasal Swab Assessment and Plan (1) S/P cardiac cath Status: Acute (2) Coronary artery disease Status: Acute (3) Diabetes mellitus Status: Acute (4) Hyperlipidemia Status: Acute (5) Hypertension Status: Acute Plan: From cardiology's perspective, we'll continue the patient on his current medications. He will undergo coronary artery bypass grafting surgery tomorrow. DNP note has been reviewed, I agree with a documented findings and plan of care. Patient was seen and examined.
[2016-03-22] MEDS: HEPARIN SODIUM,PORCINE/D5W PMX 25,000 UNIT in DEXTROSE/WATER 1 500ML.BAG IV SCH (16:11)
[2016-03-22 16:48] LABS: Glucose,Whole Blood 174 mg/dL (75-99)
--- NOTE | 2016-03-22 17:36 | PN ---
Patient is a 75-year-old admitted with chest pain. Patient was found to have 2-vessel disease, one involving the left anterior descending, failed attempts to stent that artery, and the patient is going for coronary artery bypass grafting. Patient had a chest CT which showed some nonspecific changes and nodules, and Pulmonary is already following the patient. REVIEW OF SYSTEMS: CARDIOVASCULAR: No chest pain, no orthopnea, no PND, no palpitations. PULMONARY: Denied any shortness of breath. No cough or hemoptysis. GASTROINTESTINAL: No diarrhea, nausea or vomiting. No abdominal pain. Normoactive bowel sounds. NEUROLOGIC: No headaches, no weakness, no numbness. Medications were reviewed. PHYSICAL EXAMINATION: VITAL SIGNS: Temperature 97.4, pulse of 59, respiratory rate of 18. Blood pressure is 148/75. Saturating at 97% on room air. GENERAL: The patient is alert and oriented x3, not in any acute distress. Well developed, well nourished. HEENT: Pupils are round and equally reacting to light. EOMI. No scleral icterus. No conjunctival pallor. Normocephalic, atraumatic. No pharyngeal erythema. No thyromegaly. CARDIOVASCULAR: S1 and S2 present. No murmurs, rubs, or gallops. PULMONARY: Chest is clear to auscultation, no wheezing or crackles. ABDOMEN: Soft, nontender, nondistended, normoactive bowel sounds. No palpable organomegaly. MUSCULOSKELETAL: No joint swelling or deformity. EXTREMITIES: No cyanosis, clubbing, or pedal edema. NEUROLOGICAL: Gross neurological examination did not reveal any focal deficits. SKIN: No rashes. LABORATORY DATA: Reviewed. No significant abnormality. ASSESSMENT AND PLAN: 1. Coronary artery disease; two-vessel occlusion. Patient is clinically doing well and is going for CABG tomorrow. 2. Chronic obstructive pulmonary disease without any acute exacerbation. 3. Nicotine abuse. 4. Hypertension. 5. Type 2 diabetes mellitus. Continue with sliding scale insulin. Will continue to monitor his blood glucose post surgery as well. Plan is to continue with present medications, clinical monitoring. Will follow up with the patient post surgery. Continue with sliding scale insulin.
[2016-03-22 21:28] LABS: Glucose,Whole Blood 171 mg/dL (75-99)
[2016-03-23] MEDS ORDERED: INSULIN REGULAR 100 UNIT in SODIUM CHLORIDE 0.9% 100 ML IV ONE (05:00)
[2016-03-23] MEDS ORDERED: NITROGLYCERIN-D5W PMX 25 MG/250 ML BTL IV ONE (05:00)
[2016-03-23] MEDS ORDERED: HEPARIN SODIUM,PORCINE 5,000 UNIT in SODIUM CHLORIDE 0.9% 500 ML IV ONE (05:00)
[2016-03-23] MEDS ORDERED: PROTAMINE SULFATE 250 MG in EMPTY BAG 1 BAG IV ONE (05:00)
[2016-03-23] MEDS ORDERED: NOREPINEPHRINE 4 MG in SODIUM CHLORIDE 0.9% 250 ML IV ONE (05:00)
[2016-03-23] MEDS ORDERED: DEXTROSE 5% IN WATER 1,000 ML with POTASSIUM CHLORIDE 110 MEQ, MAGNESIUM SULFATE 16 MEQ... IV SCH ×5 (05:00)
[2016-03-23] MEDS ORDERED: PROPOFOL 500 MG in EMPTY BAG 1 BAG IV ONE (05:00)
[2016-03-23] MEDS ORDERED: PAPAVERINE 360 MG in SODIUM CHLORIDE 0.9% 90 ML IV ONE (05:00)
[2016-03-23] MEDS ORDERED: CALCIUM CHLORIDE 100 MG/ML 10 ML SYRINGE IVP ONE (05:00)
[2016-03-23] MEDS ORDERED: MAGNESIUM SULFATE SYG 4.06 MEQ/ML SYRINGE IV ONE (05:00)
[2016-03-23] MEDS ORDERED: CLEVIDIPINE BUTYRATE 25 MG in EMPTY BAG 1 BAG IV ONE (05:00)
[2016-03-23] MEDS ORDERED: ALBUMIN HUMAN 25% 50 ML in EMPTY BAG 1 BAG IVPB ONE (05:00)
[2016-03-23] MEDS ORDERED: ASPIRIN 325 MG TAB PO ONE (05:00)
[2016-03-23] MEDS ORDERED: PHENYLEPHRINE-0.9% NACL SYG 1 MG/10 ML SYRINGE IV ONE ×4 (05:00)
[2016-03-23] MEDS ORDERED: SODIUM BICARB 8.4% 50 ML SYR (1 MEQ/ML) IV ONE (05:00)
[2016-03-23] MEDS ORDERED: ATORVASTATIN 10 MG TAB PO ONE (05:00)
[2016-03-23] MEDS ORDERED: AMINOCAPROIC ACID 5,000 MG in DEXTROSE 5% IN WATER 50 ML IV ONE ×4 (05:00)
[2016-03-23] MEDS ORDERED: NITROGLYCERIN-D5W PMX 50 MG in DEXTROSE/WATER 1 250ML.BAG IV ONE (05:00)
[2016-03-23] MEDS ORDERED: PROTAMINE SULFATE 10 MG/ML 25 ML VIAL IV ONE ×2 (05:00→08:11)
[2016-03-23] MEDS ORDERED: MANNITOL 25% 12.5 GM/50 ML VIAL IV ONE ×2 (05:00)
[2016-03-23] MEDS ORDERED: METOPROLOL TARTRATE 12.5 MG TAB PO ONE (05:00)
[2016-03-23] MEDS ORDERED: ALBUMIN HUMAN 5% 500 ML in EMPTY BAG 1 BAG IVPB ONE ×6 (05:00)
[2016-03-23] MEDS ORDERED: DEXTROSE 5% IN WATER 1,000 ML with POTASSIUM CHLORIDE 25 MEQ, SODIUM CHLORIDE 4MEQ/ML V... IV SCH ×6 (05:00)
[2016-03-23] MEDS ORDERED: HEPARIN SODIUM 1,000 UNIT/ML VIAL IV ONE (05:00)
[2016-03-23] MEDS ORDERED: PHENYLEPHRINE 40 MG in SODIUM CHLORIDE 0.9% 250 ML IV ONE (05:00)
[2016-03-23] MEDS ORDERED: AMINOCAPROIC ACID 250 MG/ML 20 ML VIAL IV ONE (05:00)
[2016-03-23 05:47] LABS: Glucose,Whole Blood 149 mg/dL (75-99)
[2016-03-23] MEDS ORDERED: ceFAZolin 1,000 MG in SODIUM CHLORIDE 0.9% 1,000 ML IRRIGATION ONE (08:08)
[2016-03-23] MEDS ORDERED: PHENYLEPHRINE-0.9% NACL SYG 1 MG/10 ML SYRINGE ONE (08:11)
[2016-03-23] MEDS ORDERED: MIDAZOLAM 2 MG/2 ML VIAL ONE (08:11)
[2016-03-23] MEDS ORDERED: LIDOCAINE 2% SYG (PF) 100 MG/5 ML ONE (08:11)
[2016-03-23] MEDS ORDERED: CALCIUM CHLORIDE 100 MG/ML 10 ML SYRINGE ONE (08:11)
[2016-03-23] MEDS ORDERED: VECURONIUM 10 MG VIAL IV ONE (08:11)
[2016-03-23] MEDS ORDERED: ceFAZolin 1,000 MG VIAL ONE (08:11)
[2016-03-23] MEDS ORDERED: MAGNESIUM SULFATE 4 MEQ/ML 2 ML VIAL ONE (08:11)
[2016-03-23] MEDS ORDERED: HEPARIN SODIUM,PORCINE 5,000 UNIT/ML 1 ML VIAL ONE (08:11)
[2016-03-23] MEDS ORDERED: ELECTROLYTE-R (PH 7.4) 1,000 ML IV.SOLN IV ONE (08:11)
[2016-03-23] MEDS ORDERED: HEPARIN SODIUM,PORCINE 10,000 UNIT/ML 1 ML VIAL ONE (08:11)
[2016-03-23] MEDS ORDERED: HEPARIN SODIUM 1,000 UNIT/ML VIAL ONE (08:11)
[2016-03-23] MEDS ORDERED: fentaNYL (PF) 50 MCG/ML 50 ML VIAL ONE (08:11)
[2016-03-23] MEDS ORDERED: SUCCINYLCHOLINE CHLORIDE 100 MG/5 ML SYR IV ONE (08:11)
[2016-03-23] MEDS ORDERED: fentaNYL (PF) 50 MCG/ML 2 ML AMP ONE (08:11)
[2016-03-23 08:53] LABS: Glucose,Whole Blood 155 mg/dL (75-99)
[2016-03-23 10:15] LABS: Glucose,Whole Blood 206 mg/dL (75-99)
[2016-03-23 11:34] LABS: Glucose,Whole Blood 206 mg/dL (75-99)
[2016-03-23 12:21] LABS: Glucose,Whole Blood 272 mg/dL (75-99)
[2016-03-23 13:05] LABS: Glucose,Whole Blood 295 mg/dL (75-99)
[2016-03-23 13:29] LABS: Glucose,Whole Blood 273 mg/dL (75-99)
[2016-03-23 14:36] LABS: Glucose,Whole Blood 201 mg/dL (75-99)
[2016-03-23] MEDS: LISINOPRIL 5 MG TAB PO SCH (15:31)
[2016-03-23] MEDS: METOPROLOL TARTRATE 12.5 MG TAB PO SCH (15:31)
[2016-03-23] MEDS: INSULIN LISPRO (humaLOG) 300 UNIT/3 ML VIAL SQ SCH (15:31)
[2016-03-23] MEDS: FINASTERIDE 5 MG TAB PO SCH (15:31)
[2016-03-23] MEDS: HEPARIN SODIUM,PORCINE/D5W PMX 25,000 UNIT in DEXTROSE/WATER 1 500ML.BAG IV SCH (15:32)
[2016-03-23] MEDS: TAMSULOSIN 0.4 MG CAP.ER.24H PO SCH (15:32)
[2016-03-23] MEDS: MUPIROCIN 2% OINT 22 GM TUBE NASAL SCH ×2 (15:32→22:06)
[2016-03-23] MEDS ORDERED: PROPOFOL 500 MG in EMPTY BAG 1 BAG IV SCH (15:51)
[2016-03-23] MEDS ORDERED: NOREPINEPHRINE 4 MG in SODIUM CHLORIDE 0.9% 250 ML IV SCH (15:51)
[2016-03-23] MEDS ORDERED: MILRINONE-D5W PMX 20 MG in DEXTROSE/WATER 1 100ML.BAG IV SCH (15:51)
[2016-03-23] MEDS ORDERED: METOCLOPRAMIDE 5 MG/ML 2 ML VIAL IVP PRN (15:51)
[2016-03-23] MEDS ORDERED: Phosphorus Replacement Protoco 1 EACH MISC MISCELLANE PRN (15:51)
[2016-03-23] MEDS ORDERED: DEXTROSE 5% IN WATER 100 ML with AMIODARONE 150 MG IV PRN (15:51)
[2016-03-23] MEDS ORDERED: Magnesium Replacement Protocol 1 EACH MISC MISCELLANE PRN (15:51)
[2016-03-23] MEDS ORDERED: ALBUMIN HUMAN 5% 250 ML in EMPTY BAG 1 BAG IVPB PRN (15:51)
[2016-03-23] MEDS ORDERED: BENZOCAINE/MENTHOL LOZENG 1 EACH LOZENGE MUCOUS MEM PRN (15:51)
[2016-03-23] MEDS ORDERED: AMIODARONE 450 MG in DEXTROSE 5% IN WATER 250 ML IV PRN ×2 (15:51)
[2016-03-23] MEDS ORDERED: MORPHINE SULFATE 2 MG/ML SYRINGE IVP PRN ×2 (15:51)
[2016-03-23] MEDS ORDERED: ONDANSETRON 4 MG/2 ML VIAL IVP PRN (15:51)
[2016-03-23] MEDS ORDERED: Potassium Replacement Protocol 1 EACH MISC MISCELLANE PRN (15:51)
[2016-03-23] MEDS ORDERED: hydrALAZINE HCL 20 MG/ML 1 ML VIAL IVP PRN (15:51)
[2016-03-23 15:58] LABS: Glucose,Whole Blood 152 mg/dL (75-99)
--- NOTE | 2016-03-23 16:11 | XR ---
EXAMINATION TYPE: XR chest 1V portable DATE OF EXAM: 03/23/2016 4:07 PM HISTORY: Post Op CABG COMPARISON: Preoperative 03/22/2016 TECHNIQUE: Single view of the chest is submitted. FINDINGS: Endotracheal tube, NG tube, SG catheter, mediastianal drains and chest tube are appropriately placed. Post operative changes of CABG. No sizeable pneumothorax. Scattered Pleural-parencymal opacities may reflect atelectasis. The heart is not enlarged. IMPRESSION: 1. Post operative changes of CABG.
[2016-03-23 16:13] LABS: INR 1.2 (<1.1); Partial Thromboplastin Time 25.4 sec (22.0-30.0); Prothrombin Time 12.1 sec (9.0-12.0)
[2016-03-23 16:16] LABS: ALT 30 U/L (21-72); AST 40 U/L (17-59); Alkaline Phosphatase 32 U/L (38-126); Anion Gap 6 mmol/L; Blood Urea Nitrogen 11 mg/dL (9-20); Calcium 7.9 mg/dL (8.4-10.2); Carbon Dioxide 27 mmol/L (22-30); Chloride 104 mmol/L (98-107); Glucose 153 mg/dL (74-99); Magnesium 2.5 mg/dL (1.6-2.3); Non-African American GFR(MDRD) >60 (>60 ml/min/1.73 sqM); Sodium 137 mmol/L (137-145); Total Bilirubin 1.1 mg/dL (0.2-1.3); Total Protein 4.1 g/dL (6.3-8.2)
[2016-03-23 16:19] LABS: Basophils % (A) 0 %; CH 29.6; CHCM 33.5; Eosinophils % (A) 0 %; HCT 36.2 % (39.0-53.0); HDW 2.41; Luc # (Auto) 0.09; Luc % (Auto) 1; Lymphocytes # (A) 1.1 k/uL (1.0-4.8); Lymphocytes % (A) 7 %; MCH 29.3 pg (25.0-35.0); MCV 88.7 fL (80.0-100.0); Mean Platelet Volume 6.5; Monocytes % (A) 6 %; Neutrophils # (A) 12.7 k/uL (1.3-7.7); Neutrophils % (A) 85 %; RBC 4.08 m/uL (4.30-5.90); RDW 13.2 % (11.5-15.5); WBC 14.8 k/uL (3.8-10.6); WBC (Perox) 15.41
[2016-03-23 16:25] LABS: HGB 11.9 gm/dL (13.0-17.5)
[2016-03-23 16:39] LABS: ABG Base Excess 0.9 mmol/L; ABG HCO3 26 mmol/L (21-25); ABG PCO2 46 mmHg (35-45); ABG PH 7.37 (7.35-7.45); ABG PO2 181 mmHg (83-108); ABG TCO2 27 mmol/L (19-24)
--- NOTE | 2016-03-23 16:51 | P.PN ---
Subjective Principal diagnosis: Coronary artery disease This is a 75-year-old gentleman who was found to have coronary artery disease on heart catheterization performed on 03/21/2016. He had 90% stenosis of the midportion of the LAD and a 95% stenosis in the midportion of the right coronary artery. He is now status post coronary artery bypass grafting utilizing a NAVARRO to the LAD and a saphenous vein graft to the PDA. This is postoperative day #0. He is seen in the intensive care unit. Currently on the mechanical ventilator with settings of SIMV mode of 12 tidal by of 600 FiO2 100 % and a PEEP of 5 with pressure support of 5. Blood gases reveal a pO2 of 181, pCO2 45.5 and a pH of 7.37. Current drips include IV of lactated Ringer's at 50 MLS per hour and an insulin drip at 1.5 units per hour. He is presently hemodynamically stable. Objective - Vital Signs Vital signs: Vital Signs Temp 97.7 F 03/23/16 06:07 Pulse 55 L 03/23/16 06:07 Resp 18 03/23/16 06:07 BP 146/80 03/23/16 06:07 Pulse Ox 96 03/23/16 06:30 Intake & Output 03/22/16 03/23/16 03/23/16 18:59 06:59 18:59 Intake Total 827.32 160 Output Total 1050 2900 Balance -222.68 160 -2900 Weight 91.9 kg Intake: Intake, IV Titration 227.32 160 Amount Heparin Sodium,Porcine/ 227.32 D5w Pmx 25,000 unit In Dextrose/Water 1 500ml. bag @ 10.25 UNITS/KG/HR 19.99 mls/hr IV .Q24H JG Rx#:[id number] Sodium Chloride 0.9% 1, 160 000 ml @ 100 mls/hr IV . Q10H JG Rx#:[id number] Oral 600 Output: Urine 1050 900 Estimated Blood Loss 2000 Other: Voiding Method Urinal # Voids 1 1 - Exam GENERAL EXAM: Sedated, intubated. HEAD: Normocephalic. EYES: Sluggish reaction of pupils, equal size. NOSE: Clear with pink turbinates. THROAT: Oral endotracheal tube secured in place No erythema or exudates. NECK: No masses, no JVD. CHEST: Sternal dressing is dry and intact. Mediastinal and pleural chest tubes in place LUNGS: Equal air entry with no crackles, wheeze, rhonchi or dullness. CVS: S1 and S2 normal with no audible murmurs, regular rhythm. As the referral. ABDOMEN: Soft. Extremities: There is strep's the bilateral lower extremities. Peripheral pulses are intact. No clubbing, no cyanosis. - Labs CBC & Chem 7: 03/23/16 15:51 03/23/16 15:51 Labs: Abnormal Lab Results - Last 24 Hours (Table) 03/22/16 03/22/16 03/22/16 Range/Units 03:58 16:43 21:27 WBC (3.8-10.6) k/uL RBC (4.30-5.90) m/uL Hgb (13.0-17.5) gm/dL Hct (39.0-53.0) % Plt Count (150-450) k/uL Neutrophils # (1.3-7.7) k/uL PT (9.0-12.0) sec Creatinine (0.66-1.25) mg/dL Glucose (74-99) mg/dL POC Glucose (mg/dL) 174 H 171 H (75-99) mg/dL Calcium (8.4-10.2) mg/dL Magnesium (1.6-2.3) mg/dL Alkaline Phosphatase (38-126) U/L Total Protein (6.3-8.2) g/dL Albumin (3.5-5.0) g/dL Crossmatch See Detail 03/23/16 03/23/16 03/23/16 Range/Units 05:45 08:50 10:11 WBC (3.8-10.6) k/uL RBC (4.30-5.90) m/uL Hgb (13.0-17.5) gm/dL Hct (39.0-53.0) % Plt Count (150-450) k/uL Neutrophils # (1.3-7.7) k/uL PT (9.0-12.0) sec Creatinine (0.66-1.25) mg/dL Glucose (74-99) mg/dL POC Glucose (mg/dL) 149 H 155 H 206 H (75-99) mg/dL Calcium (8.4-10.2) mg/dL Magnesium (1.6-2.3) mg/dL Alkaline Phosphatase (38-126) U/L Total Protein (6.3-8.2) g/dL Albumin (3.5-5.0) g/dL Crossmatch 03/23/16 03/23/16 03/23/16 Range/Units 11:20 12:18 12:52 WBC (3.8-10.6) k/uL RBC (4.30-5.90) m/uL Hgb (13.0-17.5) gm/dL Hct (39.0-53.0) % Plt Count (150-450) k/uL Neutrophils # (1.3-7.7) k/uL PT (9.0-12.0) sec Creatinine (0.66-1.25) mg/dL Glucose (74-99) mg/dL POC Glucose (mg/dL) 206 H 272 H 295 H (75-99) mg/dL Calcium (8.4-10.2) mg/dL Magnesium (1.6-2.3) mg/dL Alkaline Phosphatase (38-126) U/L Total Protein (6.3-8.2) g/dL Albumin (3.5-5.0) g/dL Crossmatch 03/23/16 03/23/16 03/23/16 Range/Units 13:26 14:33 15:49 WBC (3.8-10.6) k/uL RBC (4.30-5.90) m/uL Hgb (13.0-17.5) gm/dL Hct (39.0-53.0) % Plt Count (150-450) k/uL Neutrophils # (1.3-7.7) k/uL PT (9.0-12.0) sec Creatinine (0.66-1.25) mg/dL Glucose (74-99) mg/dL POC Glucose (mg/dL) 273 H 201 H 152 H (75-99) mg/dL Calcium (8.4-10.2) mg/dL Magnesium (1.6-2.3) mg/dL Alkaline Phosphatase (38-126) U/L Total Protein (6.3-8.2) g/dL Albumin (3.5-5.0) g/dL Crossmatch 03/23/16 03/23/16 03/23/16 Range/Units 15:51 15:51 15:51 WBC 14.8 H (3.8-10.6) k/uL RBC 4.08 L (4.30-5.90) m/uL Hgb 11.9 L D (13.0-17.5) gm/dL Hct 36.2 L (39.0-53.0) % Plt Count 106 L (150-450) k/uL Neutrophils # 12.7 H (1.3-7.7) k/uL PT 12.1 H (9.0-12.0) sec Creatinine 0.50 L (0.66-1.25) mg/dL Glucose 153 H (74-99) mg/dL POC Glucose (mg/dL) (75-99) mg/dL Calcium 7.9 L (8.4-10.2) mg/dL Magnesium 2.5 H (1.6-2.3) mg/dL Alkaline Phosphatase 32 L (38-126) U/L Total Protein 4.1 L (6.3-8.2) g/dL Albumin 2.5 L (3.5-5.0) g/dL Crossmatch Microbiology - Last 24 Hours (Table) 03/21/16 14:56 Nasal Screen MRSA/MSSA (JESSY) - Final Nasal Swab Staphylococcus aureus,Not MRSA 03/21/16 20:39 Urine Culture - Final Urine,Clean Catch Assessment and Plan Plan: Impression: #1 Coronary artery disease status post coronary artery bypass grafting utilizing a NAVARRO to the LAD and a saphenous vein graft to the PDA. Postoperative day #0. 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 #3 Hypertension. #4 Hyperlipidemia. #5 Diabetes mellitus. #6 Suspect underlying chronic obstructive pulmonary disease. Plan: The patient was seen and evaluated by Dr. Rodas. His chest x-ray labs and hemodynamics were reviewed. His arterial blood gases were reviewed. We'll decrease the FiO2 to 50%. We'll increase SIMV to 14. We'll repeat his chest x- ray in the a.m. He'll be on the rapid extubation protocol as tolerated. We'll continue with his current medications. He remains on bronchodilators every 4 hours. We'll continue to follow closely and make further recommendations based on his clinical status.
[2016-03-23 16:58] LABS: Glucose,Whole Blood 151 mg/dL (75-99)
[2016-03-23] MEDS: LACTATED RINGERS 1,000 ML IV SCH (17:00)
[2016-03-23] MEDS ORDERED: NITROGLYCERIN-D5W PMX 50 MG in DEXTROSE/WATER 1 250ML.BAG IV SCH (17:00)
[2016-03-23] MEDS ORDERED: DOBUTamine DRIP 500 MG in DEXTROSE/WATER 1 250ML.BAG IV SCH (17:00)
[2016-03-23] MEDS: ceFAZolin 2 GM in SODIUM CHLORIDE 0.9% 100 ML IVPB SCH (17:04)
[2016-03-23] MEDS: ACETAMINOPHEN IV (For NPO) 1,000 MG in EMPTY BAG 1 BAG IVPB SCH (17:05)
[2016-03-23] MEDS: IPRATROPIUM-ALBUTEROL 3 ML NEB INHALATION SCH ×2 (17:10→19:14)
[2016-03-23 17:13] LABS: Ionized Calcium 4.9 mg/dL (4.5-5.3)
[2016-03-23] MEDS: CALCIUM GLUCONATE 1,000 MG in SODIUM CHLORIDE 0.9% 100 ML IVPB SCH (17:55)
[2016-03-23 18:09] LABS: Glucose,Whole Blood 146 mg/dL (75-99)
[2016-03-23] MEDS: INSULIN REGULAR 100 UNIT in SODIUM CHLORIDE 0.9% 100 ML IV SCH (18:14)
[2016-03-23 19:04] LABS: Glucose,Whole Blood 153 mg/dL (75-99)
[2016-03-23 19:08] LABS: CH 29.9; HCT 33.1 % (39.0-53.0); HDW 2.49; MCH 29.3 pg (25.0-35.0); MCHC 33.2 g/dL (31.0-37.0); MCV 88.4 fL (80.0-100.0); Mean Platelet Volume 7.5; RBC 3.74 m/uL (4.30-5.90); RDW 13.2 % (11.5-15.5); WBC 14.6 k/uL (3.8-10.6)
[2016-03-23 19:55] LABS: Glucose,Whole Blood 152 mg/dL (75-99)
[2016-03-23 20:52] LABS: ABG Base Excess -1.1 mmol/L; ABG HCO3 23 mmol/L (21-25); ABG PCO2 37 mmHg (35-45); ABG PH 7.41 (7.35-7.45); ABG PO2 81 mmHg (83-108); ABG TCO2 24 mmol/L (19-24)
[2016-03-23 20:57] LABS: Glucose,Whole Blood 144 mg/dL (75-99)
[2016-03-23 21:53] LABS: Glucose,Whole Blood 127 mg/dL (75-99)
[2016-03-23 22:30] LABS: CH 29.8; CHCM 33.9; HDW 2.51; HGB 11.3 gm/dL (13.0-17.5); MCH 30.1 pg (25.0-35.0); MCHC 34.2 g/dL (31.0-37.0); MCV 88.2 fL (80.0-100.0); Mean Platelet Volume 7.8; RBC 3.74 m/uL (4.30-5.90); RDW 13.2 % (11.5-15.5)
[2016-03-23 22:39] LABS: INR 1.1 (<1.1); Partial Thromboplastin Time 29.4 sec (22.0-30.0); Prothrombin Time 11.4 sec (9.0-12.0)
[2016-03-23 22:42] LABS: Ionized Calcium 4.7 mg/dL (4.5-5.3)
[2016-03-23 22:52] LABS: Anion Gap 6 mmol/L; Blood Urea Nitrogen 12 mg/dL (9-20); Calcium 7.8 mg/dL (8.4-10.2); Carbon Dioxide 26 mmol/L (22-30); Chloride 105 mmol/L (98-107); Glucose 130 mg/dL (74-99); Non-African American GFR(MDRD) >60 (>60 ml/min/1.73 sqM); Potassium 3.7 mmol/L (3.5-5.1); Sodium 137 mmol/L (137-145)
[2016-03-23 22:59] LABS: Glucose,Whole Blood 115 mg/dL (75-99)
[2016-03-24 00:06] LABS: Glucose,Whole Blood 98 mg/dL (75-99)
[2016-03-24] MEDS: POTASSIUM CHLORIDE 10 MEQ in WATER FOR INJECTION 1 100ML.BAG IVPB SCH ×2 (00:13→02:17)
[2016-03-24] MEDS: ACETAMINOPHEN IV (For NPO) 1,000 MG in EMPTY BAG 1 BAG IVPB SCH ×4 (00:13→16:50)
[2016-03-24] MEDS: ceFAZolin 2 GM in SODIUM CHLORIDE 0.9% 100 ML IVPB SCH ×2 (00:13→08:33)
[2016-03-24 01:13] LABS: Glucose,Whole Blood 112 mg/dL (75-99)
[2016-03-24] MEDS: HEPARIN SODIUM,PORCINE 5,000 UNIT/ML 1 ML VIAL SQ SCH ×3 (01:30→16:21)
[2016-03-24 02:16] LABS: Glucose,Whole Blood 141 mg/dL (75-99)
[2016-03-24 03:20] LABS: Glucose,Whole Blood 135 mg/dL (75-99)
[2016-03-24 04:08] LABS: Glucose,Whole Blood 123 mg/dL (75-99)
[2016-03-24 05:10] LABS: Glucose,Whole Blood 113 mg/dL (75-99)
[2016-03-24 05:15] LABS: Basophils % (A) 0 %; CH 29.7; CHCM 33.7; Eosinophils % (A) 0 %; HCT 31.3 % (39.0-53.0); HDW 2.47; HGB 10.5 gm/dL (13.0-17.5); Luc # (Auto) 0.15; Luc % (Auto) 1; Lymphocytes # (A) 0.9 k/uL (1.0-4.8); Lymphocytes % (A) 7 %; MCH 29.8 pg (25.0-35.0); MCHC 33.6 g/dL (31.0-37.0); MCV 88.5 fL (80.0-100.0); Mean Platelet Volume 8.2; Monocytes # (A) 0.8 k/uL (0-1.0); Monocytes % (A) 7 %; Neutrophils # (A) 10.7 k/uL (1.3-7.7); Neutrophils % (A) 85 %; RBC 3.54 m/uL (4.30-5.90); RDW 13.3 % (11.5-15.5); WBC 12.5 k/uL (3.8-10.6); WBC (Perox) 12.93
[2016-03-24 05:22] LABS: Ionized Calcium 4.8 mg/dL (4.5-5.3)
[2016-03-24 05:26] LABS: INR 1.1 (<1.1); Partial Thromboplastin Time 26.5 sec (22.0-30.0); Prothrombin Time 11.2 sec (9.0-12.0)
[2016-03-24 05:30] LABS: ALT 32 U/L (21-72); AST 42 U/L (17-59); Alkaline Phosphatase 40 U/L (38-126); Anion Gap 7 mmol/L; Blood Urea Nitrogen 11 mg/dL (9-20); Calcium 7.8 mg/dL (8.4-10.2); Carbon Dioxide 26 mmol/L (22-30); Chloride 106 mmol/L (98-107); Glucose 108 mg/dL (74-99); Non-African American GFR(MDRD) >60 (>60 ml/min/1.73 sqM); Sodium 139 mmol/L (137-145); Total Bilirubin 1.2 mg/dL (0.2-1.3); Total Protein 4.7 g/dL (6.3-8.2)
[2016-03-24 06:48] LABS: Glucose,Whole Blood 156 mg/dL (75-99)
--- NOTE | 2016-03-24 07:08 | PN ---
DATE OF SERVICE: 03/23/2016 INTERVAL HISTORY: Mr. Chan is a 75-year-old male who was recently admitted to hospital with chest pain. Patient was found to have two-vessel disease one involving the left anterior descending and failed attempts to stent on 03/21/2016. Patient underwent subsequent coronary artery bypass graft postop day 0 now. Patient underwent coronary artery bypass graft utilizing NAVARRO to the LAD and saphenous vein graft to the PDA. Currently, patient is mechanically ventilated post surgery due to sternotomy. Currently on an insulin drip, otherwise ringer lactate. Currently requiring no pressor support, maintaining hemodynamically stable. Complete review of systems could not be obtained from the patient. Current medications include: Acetaminophen, albumin, DuoNeb, amiodarone, aspirin, atorvastatin, bisacodyl, calcium gluconate, cefazolin, clopidogrel, dextrose water, amiodarone, dobutamine, heparin subcu, hydralazine, insulin per protocol, milk of magnesia, Reglan, metoprolol, milrinone, morphine sulfate, odansetron, Protonix, propofol, Senna, Colace. PHYSICAL EXAMINATION: A 75-year-old male lying in the bed currently sedated and intubated. VITALS: Blood pressure is 125/60, pulse is 95, respirations 18, afebrile, pulse ox saturating around ( ) on 50% FiO2 on mechanical ventilation. HEENT: Atraumatic, normocephalic. Neck is supple. No JVD. CVS: S1, S2 heard. No murmurs, no gallop. LUNGS: Bilateral air entry is present. Diminished breath sounds bilateral basally. Nonlabored breathing. No wheezing. ABDOMEN: Soft, nontender. Bowel sounds are sluggish. No palpable organomegaly. CLINIC ASSISTANT: Currently sedated and intubated. No focal deficit noted. EXTREMITIES: No edema. Pulses are palpable bilaterally. No clubbing or cyanosis. PSYCHIATRIC: Cooperative. LABORATORY DATA: WBC 14.8, hemoglobin 11.9, platelets 106, INR 1.2. ABG showed pH of 7.37, pCO2 46 and pO2 181. Sodium 147, 137, potassium 4.0, chloride 104, bicarb is 27. BUN 11, creatinine 0.5, albumin 2.5. Total protein is 4.1. Chest x-ray today showed postoperative changes of coronary artery bypass graft. IMPRESSION: 1. Coronary artery disease, status post coronary artery bypass graft, postop day 0. 2. Bypass graft utilizing left internal mammary artery to the left anterior descending and saphenous vein graft to posterior descending artery. 3. Ventilator-dependent with thoracotomy. 4. Hypertension. 5. Hyperlipidemia. 6. Diabetes type 2 [id number]. 7. Benign prostatic hypertrophy. 8. Nicotine abuse. 9. Chronic obstructive pulmonary disease without any exacerbation. DISCUSSION AND PLAN: Patient will be continued on current management. Continue with the insulin drip. Continue current mechanical ventilation with FiO2 of 50%. Will continue the bronchodilator and follow up closely. Anticipate extubation tomorrow. Pulmonary is on board. Further recommendations based on the clinical course.
--- NOTE | 2016-03-24 08:00 | XR ---
EXAMINATION TYPE: XR chest 1V portable DATE OF EXAM: 03/24/2016 6:50 AM HISTORY: Postop CABG. REFERENCE: Previous study dated 03/23/2016. FINDINGS: A [place] catheter remains in place. Its tip is in the main pulmonary artery. There has been a midline sternotomy. Atelectatic changes in both lungs have largely resolved. There continues to be some left basilar atel ectasis. The heart is mildly prominent. I suspect a small left effusion. IMPRESSION: IMPROVED AERATION OF BOTH LUNGS.
[2016-03-24 08:20] LABS: Glucose,Whole Blood 147 mg/dL (75-99)
[2016-03-24] MEDS: METOPROLOL TARTRATE 12.5 MG TAB PO SCH ×3 (08:35→20:43)
[2016-03-24] MEDS: ASPIRIN 325 MG TAB PO SCH (08:35)
[2016-03-24] MEDS: ATORVASTATIN 40 MG TAB PO SCH (08:35)
[2016-03-24] MEDS: CLOPIDOGREL 75 MG TAB PO SCH (08:35)
[2016-03-24] MEDS: MUPIROCIN 2% OINT 22 GM TUBE NASAL SCH ×2 (08:36→20:45)
[2016-03-24] MEDS ORDERED: POTASSIUM CHLORIDE ER 20 MEQ TAB.ER PO SCH (09:00)
[2016-03-24] MEDS ORDERED: PANTOPRAZOLE 40 MG/10 ML VIAL IVP SCH (09:00)
[2016-03-24 09:02] LABS: Glucose,Whole Blood 175 mg/dL (75-99)
[2016-03-24] MEDS: MAGNESIUM SULFATE-D5W PMX 1 GM in DEXTROSE/WATER 1 100ML.BAG IVPB SCH ×2 (09:15→11:10)
--- NOTE | 2016-03-24 10:20 | P.PN ---
<Fouzia Portillo - Last Filed: 03/24/16 10:06> Subjective Principal diagnosis: Coronary artery disease requiring coronary artery bypass grafting. Postop day #1 urgent coronary artery bypass grafting 2, with placement of the left internal mammary artery to the mid left anterior descending artery, reverse greater saphenous vein graft placed to the posterior descending coronary artery. Endoscopic vein harvesting of the right greater saphenous vein. Intraoperative transesophageal echocardiogram and epi-aortic scanning. Patient currently sitting up in chair in no apparent distress. Denies any complaints. Objective - Vital Signs Vital signs: Vital Signs Temp 99.0 F 03/24/16 09:00 Pulse 98 03/24/16 09:00 Resp 14 03/24/16 07:00 BP 86/49 03/24/16 09:00 Pulse Ox 99 03/24/16 09:00 Intake & Output 03/23/16 03/24/16 03/24/16 18:59 06:59 18:59 Intake Total 722.5 1399.877 578.248 Output Total 3481 1233 190 Balance -2758.5 166.877 388.248 Weight 96.9 kg Intake: IV 260 950 170 ACETAMINOPHEN IV (For NPO 100 100 ) 1,000 mg In Empty Bag 1 bag @ 400 mls/hr IVPB Q6HR JG Rx#:[id number] CO/CI INTAKE 160 330 20 Lactated Ringers 1,000 ml 520 150 @ 50 mls/hr IV .Q20H JG Rx#:[id number] Intake, IV Titration 462.5 339.877 108.248 Amount Albumin Human 5% 250 ml 250 In Empty Bag 1 bag @ 250 mls/hr IVPB Q1HR PRN Rx#: [id number] Insulin Regular 100 unit 12.5 39.877 8.248 In Sodium Chloride 0.9% 100 ml @ Per Protocol IV .Q0M JG Rx#:[id number] Lactated Ringers 1,000 ml 100 @ 50 mls/hr IV .Q20H JG Rx#:[id number] Potassium Chloride 10 meq 200 In Water For Injection 1 100ml.bag @ 100 mls/hr IVPB Q1H JG Rx#: [id number] ceFAZolin 2 gm In Sodium 100 100 100 Chloride 0.9% 100 ml @ 100 mls/hr IVPB Q8HR JG Rx#:[id number] Oral 110 300 Output: Chest Tube Drainage 456 377 50 Left Lateral Chest 128 87 10 Mediastinal 328 290 40 Drainage 40 15 Right Calf 40 15 Urine 985 841 140 Estimated Blood Loss 1999 Other: Voiding Method Indwelling Catheter Indwelling Catheter ABP, PAP, CO, CI - Last Documented Arterial Blood Pressure 103/45 Pulmonary Artery Pressure 16/10 Cardiac Output 5.4 Cardiac Index 2.5 - Constitutional General appearance: Present: cooperative, no acute distress - Respiratory Details: Lungs sounds diminished bilaterally. Respirations even and nonlabored. Extubated last night, currently on 3 L nasal cannula. Able to achieve 750 mL on incentive spirometry. Mediastinal chest tube draining serosanguineous fluid , connected to -20 cm wall suction, 460 mL output in the last 24 hours. Left lateral chest tube draining serosanguineous fluid, connected to -20 cm wall suction, 160 mL output last 24 hours. No air leak and other chest tube. - Cardiovascular Details: S1-S2 present. Positive rub. Rate and rhythm, sinus rhythm to sinus tach with occasional PVCs on telemetry. Chest stable. Heart hugger in place with patient exhibiting appropriate use. No edema present. Palpable radial, PT, DP pulses. - Gastrointestinal Gastrointestinal Comment(s): Abdomen soft, nontender, nondistended. Active bowel sounds 4 quadrants. Negative flatus, negative BM since surgery. - Genitourinary Genitourinary Comment(s): Gonsales present draining clear, yellow urine. - Integumentary Integumentary Comment(s): Skin warm, dry. Anterior chest wall incision covered with dry intact silver dressing. Right lower extremity DAMION drain present draining serosanguineous fluid. EVH site well approximated. - Neurologic Neurologic: Present: CNII-XII intact - Musculoskeletal Musculoskeletal Comment(s): Able to get up to chair this morning with the cyst 2. - Psychiatric Psychiatric: Present: A&O x's 3, appropriate affect, intact judgment & insight - Allied health notes Allied health notes reviewed: RT - Labs CBC & Chem 7: 03/24/16 05:06 03/24/16 05:06 Labs: Abnormal Lab Results - Last 24 Hours (Table) 03/22/16 03/23/16 03/23/16 Range/Units 03:58 10:11 11:20 WBC (3.8-10.6) k/uL RBC (4.30-5.90) m/uL Hgb (13.0-17.5) gm/dL Hct (39.0-53.0) % Plt Count (150-450) k/uL Neutrophils # (1.3-7.7) k/uL Lymphocytes # (1.0-4.8) k/uL PT (9.0-12.0) sec ABG pCO2 (35-45) mmHg ABG pO2 (83-108) mmHg ABG HCO3 (21-25) mmol/L ABG Total CO2 (19-24) mmol/L ABG O2 Saturation (94-97) % Creatinine (0.66-1.25) mg/dL Glucose (74-99) mg/dL POC Glucose (mg/dL) 206 H 206 H (75-99) mg/dL Calcium (8.4-10.2) mg/dL Magnesium (1.6-2.3) mg/dL Alkaline Phosphatase (38-126) U/L Total Protein (6.3-8.2) g/dL Albumin (3.5-5.0) g/dL Crossmatch See Detail 03/23/16 03/23/16 03/23/16 Range/Units 12:18 12:52 13:26 WBC (3.8-10.6) k/uL RBC (4.30-5.90) m/uL Hgb (13.0-17.5) gm/dL Hct (39.0-53.0) % Plt Count (150-450) k/uL Neutrophils # (1.3-7.7) k/uL Lymphocytes # (1.0-4.8) k/uL PT (9.0-12.0) sec ABG pCO2 (35-45) mmHg ABG pO2 (83-108) mmHg ABG HCO3 (21-25) mmol/L ABG Total CO2 (19-24) mmol/L ABG O2 Saturation (94-97) % Creatinine (0.66-1.25) mg/dL Glucose (74-99) mg/dL POC Glucose (mg/dL) 272 H 295 H 273 H (75-99) mg/dL Calcium (8.4-10.2) mg/dL Magnesium (1.6-2.3) mg/dL Alkaline Phosphatase (38-126) U/L Total Protein (6.3-8.2) g/dL Albumin (3.5-5.0) g/dL Crossmatch 03/23/16 03/23/16 03/23/16 Range/Units 14:33 15:49 15:51 WBC 14.8 H (3.8-10.6) k/uL RBC 4.08 L (4.30-5.90) m/uL Hgb 11.9 L D (13.0-17.5) gm/dL Hct 36.2 L (39.0-53.0) % Plt Count 106 L (150-450) k/uL Neutrophils # 12.7 H (1.3-7.7) k/uL Lymphocytes # (1.0-4.8) k/uL PT (9.0-12.0) sec ABG pCO2 (35-45) mmHg ABG pO2 (83-108) mmHg ABG HCO3 (21-25) mmol/L ABG Total CO2 (19-24) mmol/L ABG O2 Saturation (94-97) % Creatinine (0.66-1.25) mg/dL Glucose (74-99) mg/dL POC Glucose (mg/dL) 201 H 152 H (75-99) mg/dL Calcium (8.4-10.2) mg/dL Magnesium (1.6-2.3) mg/dL Alkaline Phosphatase (38-126) U/L Total Protein (6.3-8.2) g/dL Albumin (3.5-5.0) g/dL Crossmatch 03/23/16 03/23/16 03/23/16 Range/Units 15:51 15:51 16:28 WBC (3.8-10.6) k/uL RBC (4.30-5.90) m/uL Hgb (13.0-17.5) gm/dL Hct (39.0-53.0) % Plt Count (150-450) k/uL Neutrophils # (1.3-7.7) k/uL Lymphocytes # (1.0-4.8) k/uL PT 12.1 H (9.0-12.0) sec ABG pCO2 46 H (35-45) mmHg ABG pO2 181 H (83-108) mmHg ABG HCO3 26 H (21-25) mmol/L ABG Total CO2 27 H (19-24) mmol/L ABG O2 Saturation 100.0 H (94-97) % Creatinine 0.50 L (0.66-1.25) mg/dL Glucose 153 H (74-99) mg/dL POC Glucose (mg/dL) (75-99) mg/dL Calcium 7.9 L (8.4-10.2) mg/dL Magnesium 2.5 H (1.6-2.3) mg/dL Alkaline Phosphatase 32 L (38-126) U/L Total Protein 4.1 L (6.3-8.2) g/dL Albumin 2.5 L (3.5-5.0) g/dL Crossmatch 03/23/16 03/23/16 03/23/16 Range/Units 16:56 18:05 19:00 WBC 14.6 H (3.8-10.6) k/uL RBC 3.74 L (4.30-5.90) m/uL Hgb 11.0 L (13.0-17.5) gm/dL Hct 33.1 L (39.0-53.0) % Plt Count 103 L (150-450) k/uL Neutrophils # (1.3-7.7) k/uL Lymphocytes # (1.0-4.8) k/uL PT (9.0-12.0) sec ABG pCO2 (35-45) mmHg ABG pO2 (83-108) mmHg ABG HCO3 (21-25) mmol/L ABG Total CO2 (19-24) mmol/L ABG O2 Saturation (94-97) % Creatinine (0.66-1.25) mg/dL Glucose (74-99) mg/dL POC Glucose (mg/dL) 151 H 146 H (75-99) mg/dL Calcium (8.4-10.2) mg/dL Magnesium (1.6-2.3) mg/dL Alkaline Phosphatase (38-126) U/L Total Protein (6.3-8.2) g/dL Albumin (3.5-5.0) g/dL Crossmatch 03/23/16 03/23/16 03/23/16 Range/Units 19:01 19:53 20:45 WBC (3.8-10.6) k/uL RBC (4.30-5.90) m/uL Hgb (13.0-17.5) gm/dL Hct (39.0-53.0) % Plt Count (150-450) k/uL Neutrophils # (1.3-7.7) k/uL Lymphocytes # (1.0-4.8) k/uL PT (9.0-12.0) sec ABG pCO2 (35-45) mmHg ABG pO2 81 L (83-108) mmHg ABG HCO3 (21-25) mmol/L ABG Total CO2 (19-24) mmol/L ABG O2 Saturation (94-97) % Creatinine (0.66-1.25) mg/dL Glucose (74-99) mg/dL POC Glucose (mg/dL) 153 H 152 H (75-99) mg/dL Calcium (8.4-10.2) mg/dL Magnesium (1.6-2.3) mg/dL Alkaline Phosphatase (38-126) U/L Total Protein (6.3-8.2) g/dL Albumin (3.5-5.0) g/dL Crossmatch 03/23/16 03/23/16 03/23/16 Range/Units 20:46 21:52 21:55 WBC (3.8-10.6) k/uL RBC (4.30-5.90) m/uL Hgb (13.0-17.5) gm/dL Hct (39.0-53.0) % Plt Count (150-450) k/uL Neutrophils # (1.3-7.7) k/uL Lymphocytes # (1.0-4.8) k/uL PT (9.0-12.0) sec ABG pCO2 (35-45) mmHg ABG pO2 (83-108) mmHg ABG HCO3 (21-25) mmol/L ABG Total CO2 (19-24) mmol/L ABG O2 Saturation (94-97) % Creatinine 0.50 L (0.66-1.25) mg/dL Glucose 130 H (74-99) mg/dL POC Glucose (mg/dL) 144 H 127 H (75-99) mg/dL Calcium 7.8 L (8.4-10.2) mg/dL Magnesium (1.6-2.3) mg/dL Alkaline Phosphatase (38-126) U/L Total Protein (6.3-8.2) g/dL Albumin (3.5-5.0) g/dL Crossmatch 03/23/16 03/23/16 03/24/16 Range/Units 21:55 22:57 01:12 WBC 13.0 H (3.8-10.6) k/uL RBC 3.74 L (4.30-5.90) m/uL Hgb 11.3 L (13.0-17.5) gm/dL Hct 33.0 L (39.0-53.0) % Plt Count 109 L (150-450) k/uL Neutrophils # (1.3-7.7) k/uL Lymphocytes # (1.0-4.8) k/uL PT (9.0-12.0) sec ABG pCO2 (35-45) mmHg ABG pO2 (83-108) mmHg ABG HCO3 (21-25) mmol/L ABG Total CO2 (19-24) mmol/L ABG O2 Saturation (94-97) % Creatinine (0.66-1.25) mg/dL Glucose (74-99) mg/dL POC Glucose (mg/dL) 115 H 112 H (75-99) mg/dL Calcium (8.4-10.2) mg/dL Magnesium (1.6-2.3) mg/dL Alkaline Phosphatase (38-126) U/L Total Protein (6.3-8.2) g/dL Albumin (3.5-5.0) g/dL Crossmatch 03/24/16 03/24/16 03/24/16 Range/Units 02:12 03:03 04:06 WBC (3.8-10.6) k/uL RBC (4.30-5.90) m/uL Hgb (13.0-17.5) gm/dL Hct (39.0-53.0) % Plt Count (150-450) k/uL Neutrophils # (1.3-7.7) k/uL Lymphocytes # (1.0-4.8) k/uL PT (9.0-12.0) sec ABG pCO2 (35-45) mmHg ABG pO2 (83-108) mmHg ABG HCO3 (21-25) mmol/L ABG Total CO2 (19-24) mmol/L ABG O2 Saturation (94-97) % Creatinine (0.66-1.25) mg/dL Glucose (74-99) mg/dL POC Glucose (mg/dL) 141 H 135 H 123 H (75-99) mg/dL Calcium (8.4-10.2) mg/dL Magnesium (1.6-2.3) mg/dL Alkaline Phosphatase (38-126) U/L Total Protein (6.3-8.2) g/dL Albumin (3.5-5.0) g/dL Crossmatch 03/24/16 03/24/16 03/24/16 Range/Units 05:06 05:06 05:07 WBC 12.5 H (3.8-10.6) k/uL RBC 3.54 L (4.30-5.90) m/uL Hgb 10.5 L (13.0-17.5) gm/dL Hct 31.3 L (39.0-53.0) % Plt Count 108 L (150-450) k/uL Neutrophils # 10.7 H (1.3-7.7) k/uL Lymphocytes # 0.9 L (1.0-4.8) k/uL PT (9.0-12.0) sec ABG pCO2 (35-45) mmHg ABG pO2 (83-108) mmHg ABG HCO3 (21-25) mmol/L ABG Total CO2 (19-24) mmol/L ABG O2 Saturation (94-97) % Creatinine 0.52 L (0.66-1.25) mg/dL Glucose 108 H (74-99) mg/dL POC Glucose (mg/dL) 113 H (75-99) mg/dL Calcium 7.8 L (8.4-10.2) mg/dL Magnesium (1.6-2.3) mg/dL Alkaline Phosphatase (38-126) U/L Total Protein 4.7 L (6.3-8.2) g/dL Albumin 2.9 L (3.5-5.0) g/dL Crossmatch 03/24/16 03/24/16 03/24/16 Range/Units 06:33 08:18 09:01 WBC (3.8-10.6) k/uL RBC (4.30-5.90) m/uL Hgb (13.0-17.5) gm/dL Hct (39.0-53.0) % Plt Count (150-450) k/uL Neutrophils # (1.3-7.7) k/uL Lymphocytes # (1.0-4.8) k/uL PT (9.0-12.0) sec ABG pCO2 (35-45) mmHg ABG pO2 (83-108) mmHg ABG HCO3 (21-25) mmol/L ABG Total CO2 (19-24) mmol/L ABG O2 Saturation (94-97) % Creatinine (0.66-1.25) mg/dL Glucose (74-99) mg/dL POC Glucose (mg/dL) 156 H 147 H 175 H (75-99) mg/dL Calcium (8.4-10.2) mg/dL Magnesium (1.6-2.3) mg/dL Alkaline Phosphatase (38-126) U/L Total Protein (6.3-8.2) g/dL Albumin (3.5-5.0) g/dL Crossmatch Microbiology - Last 24 Hours (Table) 03/21/16 14:56 Nasal Screen MRSA/MSSA (JESSY) - Final Nasal Swab Staphylococcus aureus,Not MRSA - Imaging and Cardiology Chest x-ray: image reviewed Assessment and Plan (1) Coronary artery disease Status: Acute (2) Hypertension Status: Acute (3) Hyperlipidemia Status: Acute (4) Diabetes mellitus Status: Acute Plan: 1. Continue aspirin, Plavix, beta micaela, statin. 2. Will try to increase beta micaela if blood pressure will allow. 3. Encourage incentive spirometry use and effective coughing. 4. Increase activity, up to chair minimum 3 times daily, attempt ambulation. 5. DC [place]. 6. Nasal swab positive for MRSA, continue mupiracin. 7. GI/DVT prophylaxis 8. More recs to follow dependent on patient's status. Time with Patient: Greater than 30 <Zeb Buchanan - Last Filed: 03/24/16 15:23> Objective - Vital Signs Vital signs: Vital Signs Temp 99.0 F 03/24/16 12:00 Pulse 102 H 03/24/16 13:00 Resp 14 03/24/16 12:00 BP 90/55 03/24/16 12:30 Pulse Ox 96 03/24/16 13:00 Intake & Output 03/23/16 03/24/16 03/24/16 18:59 06:59 18:59 Intake Total 722.5 0934.913 4698.539 Output Total 3481 1233 518 Balance -2758.5 166.877 870.539 Weight 96.9 kg Intake: IV 260 950 470 ACETAMINOPHEN IV (For NPO 100 100 100 ) 1,000 mg In Empty Bag 1 bag @ 400 mls/hr IVPB Q6HR JG Rx#:[id number] CO/CI INTAKE 160 330 20 Lactated Ringers 1,000 ml 520 350 @ 50 mls/hr IV .Q20H JG Rx#:[id number] Intake, IV Titration 462.5 339.877 318.539 Amount Albumin Human 5% 250 ml 250 In Empty Bag 1 bag @ 250 mls/hr IVPB Q1HR PRN Rx#: [id number] Insulin Regular 100 unit 12.5 39.877 18.539 In Sodium Chloride 0.9% 100 ml @ Per Protocol IV .Q0M JG Rx#:[id number] Lactated Ringers 1,000 ml 100 @ 50 mls/hr IV .Q20H JG Rx#:[id number] Magnesium Sulfate-D5w Pmx 200 1 gm In Dextrose/Water 1 100ml.bag @ 100 mls/hr IVPB Q1H JG Rx#: [id number] Potassium Chloride 10 meq 200 In Water For Injection 1 100ml.bag @ 100 mls/hr IVPB Q1H JG Rx#: [id number] ceFAZolin 2 gm In Sodium 100 100 100 Chloride 0.9% 100 ml @ 100 mls/hr IVPB Q8HR JG Rx#:[id number] Oral 110 600 Output: Chest Tube Drainage 456 377 218 Left Lateral Chest 128 87 38 Mediastinal 328 290 180 Drainage 40 15 Right Calf 40 15 Urine 985 841 300 Estimated Blood Loss 1999 Other: Voiding Method Indwelling Catheter Indwelling Catheter Indwelling Catheter ABP, PAP, CO, CI - Last Documented Arterial Blood Pressure 112/53 Pulmonary Artery Pressure 21/14 Cardiac Output 5.4 Cardiac Index 2.5 - Labs CBC & Chem 7: 03/24/16 05:06 03/24/16 05:06 Labs: Abnormal Lab Results - Last 24 Hours (Table) 03/22/16 03/23/16 03/23/16 Range/Units 03:58 15:49 15:51 WBC 14.8 H (3.8-10.6) k/uL RBC 4.08 L (4.30-5.90) m/uL Hgb 11.9 L D (13.0-17.5) gm/dL Hct 36.2 L (39.0-53.0) % Plt Count 106 L (150-450) k/uL Neutrophils # 12.7 H (1.3-7.7) k/uL Lymphocytes # (1.0-4.8) k/uL PT (9.0-12.0) sec ABG pCO2 (35-45) mmHg ABG pO2 (83-108) mmHg ABG HCO3 (21-25) mmol/L ABG Total CO2 (19-24) mmol/L ABG O2 Saturation (94-97) % Creatinine (0.66-1.25) mg/dL Glucose (74-99) mg/dL POC Glucose (mg/dL) 152 H (75-99) mg/dL Calcium (8.4-10.2) mg/dL Magnesium (1.6-2.3) mg/dL Alkaline Phosphatase (38-126) U/L Total Protein (6.3-8.2) g/dL Albumin (3.5-5.0) g/dL Crossmatch See Detail 03/23/16 03/23/16 03/23/16 Range/Units 15:51 15:51 16:28 WBC (3.8-10.6) k/uL RBC (4.30-5.90) m/uL Hgb (13.0-17.5) gm/dL Hct (39.0-53.0) % Plt Count (150-450) k/uL Neutrophils # (1.3-7.7) k/uL Lymphocytes # (1.0-4.8) k/uL PT 12.1 H (9.0-12.0) sec ABG pCO2 46 H (35-45) mmHg ABG pO2 181 H (83-108) mmHg ABG HCO3 26 H (21-25) mmol/L ABG Total CO2 27 H (19-24) mmol/L ABG O2 Saturation 100.0 H (94-97) % Creatinine 0.50 L (0.66-1.25) mg/dL Glucose 153 H (74-99) mg/dL POC Glucose (mg/dL) (75-99) mg/dL Calcium 7.9 L (8.4-10.2) mg/dL Magnesium 2.5 H (1.6-2.3) mg/dL Alkaline Phosphatase 32 L (38-126) U/L Total Protein 4.1 L (6.3-8.2) g/dL Albumin 2.5 L (3.5-5.0) g/dL Crossmatch 03/23/16 03/23/16 03/23/16 Range/Units 16:56 18:05 19:00 WBC 14.6 H (3.8-10.6) k/uL RBC 3.74 L (4.30-5.90) m/uL Hgb 11.0 L (13.0-17.5) gm/dL Hct 33.1 L (39.0-53.0) % Plt Count 103 L (150-450) k/uL Neutrophils # (1.3-7.7) k/uL Lymphocytes # (1.0-4.8) k/uL PT (9.0-12.0) sec ABG pCO2 (35-45) mmHg ABG pO2 (83-108) mmHg ABG HCO3 (21-25) mmol/L ABG Total CO2 (19-24) mmol/L ABG O2 Saturation (94-97) % Creatinine (0.66-1.25) mg/dL Glucose (74-99) mg/dL POC Glucose (mg/dL) 151 H 146 H (75-99) mg/dL Calcium (8.4-10.2) mg/dL Magnesium (1.6-2.3) mg/dL Alkaline Phosphatase (38-126) U/L Total Protein (6.3-8.2) g/dL Albumin (3.5-5.0) g/dL Crossmatch 03/23/16 03/23/16 03/23/16 Range/Units 19:01 19:53 20:45 WBC (3.8-10.6) k/uL RBC (4.30-5.90) m/uL Hgb (13.0-17.5) gm/dL Hct (39.0-53.0) % Plt Count (150-450) k/uL Neutrophils # (1.3-7.7) k/uL Lymphocytes # (1.0-4.8) k/uL PT (9.0-12.0) sec ABG pCO2 (35-45) mmHg ABG pO2 81 L (83-108) mmHg ABG HCO3 (21-25) mmol/L ABG Total CO2 (19-24) mmol/L ABG O2 Saturation (94-97) % Creatinine (0.66-1.25) mg/dL Glucose (74-99) mg/dL POC Glucose (mg/dL) 153 H 152 H (75-99) mg/dL Calcium (8.4-10.2) mg/dL Magnesium (1.6-2.3) mg/dL Alkaline Phosphatase (38-126) U/L Total Protein (6.3-8.2) g/dL Albumin (3.5-5.0) g/dL Crossmatch 03/23/16 03/23/16 03/23/16 Range/Units 20:46 21:52 21:55 WBC (3.8-10.6) k/uL RBC (4.30-5.90) m/uL Hgb (13.0-17.5) gm/dL Hct (39.0-53.0) % Plt Count (150-450) k/uL Neutrophils # (1.3-7.7) k/uL Lymphocytes # (1.0-4.8) k/uL PT (9.0-12.0) sec ABG pCO2 (35-45) mmHg ABG pO2 (83-108) mmHg ABG HCO3 (21-25) mmol/L ABG Total CO2 (19-24) mmol/L ABG O2 Saturation (94-97) % Creatinine 0.50 L (0.66-1.25) mg/dL Glucose 130 H (74-99) mg/dL POC Glucose (mg/dL) 144 H 127 H (75-99) mg/dL Calcium 7.8 L (8.4-10.2) mg/dL Magnesium (1.6-2.3) mg/dL Alkaline Phosphatase (38-126) U/L Total Protein (6.3-8.2) g/dL Albumin (3.5-5.0) g/dL Crossmatch 03/23/16 03/23/16 03/24/16 Range/Units 21:55 22:57 01:12 WBC 13.0 H (3.8-10.6) k/uL RBC 3.74 L (4.30-5.90) m/uL Hgb 11.3 L (13.0-17.5) gm/dL Hct 33.0 L (39.0-53.0) % Plt Count 109 L (150-450) k/uL Neutrophils # (1.3-7.7) k/uL Lymphocytes # (1.0-4.8) k/uL PT (9.0-12.0) sec ABG pCO2 (35-45) mmHg ABG pO2 (83-108) mmHg ABG HCO3 (21-25) mmol/L ABG Total CO2 (19-24) mmol/L ABG O2 Saturation (94-97) % Creatinine (0.66-1.25) mg/dL Glucose (74-99) mg/dL POC Glucose (mg/dL) 115 H 112 H (75-99) mg/dL Calcium (8.4-10.2) mg/dL Magnesium (1.6-2.3) mg/dL Alkaline Phosphatase (38-126) U/L Total Protein (6.3-8.2) g/dL Albumin (3.5-5.0) g/dL Crossmatch 03/24/16 03/24/16 03/24/16 Range/Units 02:12 03:03 04:06 WBC (3.8-10.6) k/uL RBC (4.30-5.90) m/uL Hgb (13.0-17.5) gm/dL Hct (39.0-53.0) % Plt Count (150-450) k/uL Neutrophils # (1.3-7.7) k/uL Lymphocytes # (1.0-4.8) k/uL PT (9.0-12.0) sec ABG pCO2 (35-45) mmHg ABG pO2 (83-108) mmHg ABG HCO3 (21-25) mmol/L ABG Total CO2 (19-24) mmol/L ABG O2 Saturation (94-97) % Creatinine (0.66-1.25) mg/dL Glucose (74-99) mg/dL POC Glucose (mg/dL) 141 H 135 H 123 H (75-99) mg/dL Calcium (8.4-10.2) mg/dL Magnesium (1.6-2.3) mg/dL Alkaline Phosphatase (38-126) U/L Total Protein (6.3-8.2) g/dL Albumin (3.5-5.0) g/dL Crossmatch 03/24/16 03/24/16 03/24/16 Range/Units 05:06 05:06 05:07 WBC 12.5 H (3.8-10.6) k/uL RBC 3.54 L (4.30-5.90) m/uL Hgb 10.5 L (13.0-17.5) gm/dL Hct 31.3 L (39.0-53.0) % Plt Count 108 L (150-450) k/uL Neutrophils # 10.7 H (1.3-7.7) k/uL Lymphocytes # 0.9 L (1.0-4.8) k/uL PT (9.0-12.0) sec ABG pCO2 (35-45) mmHg ABG pO2 (83-108) mmHg ABG HCO3 (21-25) mmol/L ABG Total CO2 (19-24) mmol/L ABG O2 Saturation (94-97) % Creatinine 0.52 L (0.66-1.25) mg/dL Glucose 108 H (74-99) mg/dL POC Glucose (mg/dL) 113 H (75-99) mg/dL Calcium 7.8 L (8.4-10.2) mg/dL Magnesium (1.6-2.3) mg/dL Alkaline Phosphatase (38-126) U/L Total Protein 4.7 L (6.3-8.2) g/dL Albumin 2.9 L (3.5-5.0) g/dL Crossmatch 03/24/16 03/24/16 03/24/16 Range/Units 06:33 08:18 09:01 WBC (3.8-10.6) k/uL RBC (4.30-5.90) m/uL Hgb (13.0-17.5) gm/dL Hct (39.0-53.0) % Plt Count (150-450) k/uL Neutrophils # (1.3-7.7) k/uL Lymphocytes # (1.0-4.8) k/uL PT (9.0-12.0) sec ABG pCO2 (35-45) mmHg ABG pO2 (83-108) mmHg ABG HCO3 (21-25) mmol/L ABG Total CO2 (19-24) mmol/L ABG O2 Saturation (94-97) % Creatinine (0.66-1.25) mg/dL Glucose (74-99) mg/dL POC Glucose (mg/dL) 156 H 147 H 175 H (75-99) mg/dL Calcium (8.4-10.2) mg/dL Magnesium (1.6-2.3) mg/dL Alkaline Phosphatase (38-126) U/L Total Protein (6.3-8.2) g/dL Albumin (3.5-5.0) g/dL Crossmatch 03/24/16 03/24/16 03/24/16 Range/Units 10:37 12:40 14:46 WBC (3.8-10.6) k/uL RBC (4.30-5.90) m/uL Hgb (13.0-17.5) gm/dL Hct (39.0-53.0) % Plt Count (150-450) k/uL Neutrophils # (1.3-7.7) k/uL Lymphocytes # (1.0-4.8) k/uL PT (9.0-12.0) sec ABG pCO2 (35-45) mmHg ABG pO2 (83-108) mmHg ABG HCO3 (21-25) mmol/L ABG Total CO2 (19-24) mmol/L ABG O2 Saturation (94-97) % Creatinine (0.66-1.25) mg/dL Glucose (74-99) mg/dL POC Glucose (mg/dL) 106 H 110 H 141 H (75-99) mg/dL Calcium (8.4-10.2) mg/dL Magnesium (1.6-2.3) mg/dL Alkaline Phosphatase (38-126) U/L Total Protein (6.3-8.2) g/dL Albumin (3.5-5.0) g/dL Crossmatch Microbiology - Last 24 Hours (Table) 03/21/16 14:56 Nasal Screen MRSA/MSSA (JESSY) - Final Nasal Swab Staphylococcus aureus,Not MRSA Assessment and Plan (1) Coronary artery disease Status: Acute
--- NOTE | 2016-03-24 10:30 | OP ---
DATE OF SERVICE: 03/23/2016 SURGEON: Zeb Buchanan MD TRIMMER SAWYER: 1. FARHAD Chairez 2. Praful Joseph NP PREOPERATIVE DIAGNOSIS: Coronary artery disease. POSTOPERATIVE DIAGNOSIS: Coronary artery disease. PROCEDURE: 1. Coronary artery bypass grafting x2 vessels (left internal mammary artery to left anterior descending artery, saphenous vein graft to posterior descending artery). 2. Endoscopic vein harvest, right greater saphenous vein. 3. Aortic ultrasound. 4. Transesophageal echocardiogram. ANESTHESIA: General. SPECIMENS: None. COMPLICATIONS: None. INDICATIONS: The patient is a 75-year-old male with history of hypertension, diabetes, hyperlipidemia, smoking, and abdominal aneurysm repair, who presented to the hospital with chest pain. Stress test was found to be abnormal. Cardiac catheterization revealed multivessel coronary artery disease including a tight LAD lesion, which was unable to be treated percutaneously. A coronary artery bypass was recommended. Risks, benefits, alternatives to this procedure discussed with the patient. All questions were answered. Consent was obtained. FINDINGS: The left internal mammary artery was a good conduit with brisk flow. The saphenous vein was an adequate conduit. The LAD measured 1.5 mm. The posterior descending artery measured 1.3 mm. PROCEDURE IN DETAIL: The patient was taken to the operating room, placed supine on the operating table. After induction of general anesthesia, he was prepped and draped in the usual sterile fashion. Preoperative transesophageal echocardiogram revealed trace mitral regurgitation with preserved ejection fraction. A median sternotomy was performed. The left internal mammary artery was harvested in standard fashion taking care to clip all branches. Intravenous heparin was administered and the vessel transected distally, revealing brisk flow. Simultaneously, greater saphenous vein was harvested from the right lower extremity using endoscopic technique. The vein had multiple branches and was somewhat thin-walled. The thigh portion was felt to be adequate for use however, everything distal to this area was not adequate for use of conduit. A pericardial cradle was performed. Ultrasound was performed of the ascending aorta. No significant aortic calcification or atheromatous disease was identified. The aorta itself was soft to touch. Arterial cannula was then placed in the distal ascending aorta. A venous cannula was placed in the right radial appendage and directed into the IVC. Both antegrade and retrograde catheters were placed as well. The patient was placed on cardiopulmonary bypass with good decompression of the heart. Cardioplegia was delivered in both antegrade and retrograde fashion every 15 to 20 minutes while the patient remained under crossclamp. I began by inspecting the inferior wall. The distal right coronary artery was dissected free. It was heavily calcified and not suitable for bypass. On the inferior wall, identified a branch of the posterior descending artery. This vessel was dissected free and a small arteriotomy was created. It accepted a 1 mm probe both proximally and distally. Using saphenous vein in a reverse fashion, an end to side anastomosis was created. This was performed using running 7-0 Prolene suture. Prior to tying down the last stitch, both the heel and toe were probed and found to be patent. The graft was hemostatic and had good flow. Next the anterior wall was identified. The proximal left anterior descending artery was palpated was heavily calcified. A soft spot was located in the midsection, which I felt was amenable for bypass. A small arteriotomy was created. Using the left internal mammary artery, an end to side anastomosis was created. This was performed using running 8-0 Prolene suture. Prior to tying down the last suture, both the heel and toe were probed and found to be patent. The graft was hemostatic. Of note, this vessel accepted a 1.5 mm probe. The mammary pedicle was intact to the anterior surface of the heart. The proximal anastomosis was then performed to the ascending aorta in an end to side fashion using running 6-0 Prolene suture. One liter of warm blood was delivered in retrograde fashion. Lidocaine and magnesium were administered as well. The aortic crossclamp was removed. The saphenous vein graft was de-aired in the standard fashion. Temporary atrial and ventricular pacing wires were placed and brought through the skin. The retrograde catheter was removed and the defect re-enforced with a 4-0 Prolene suture. The patient had spontaneous return of normal sinus rhythm. He was then weaned off cardiopulmonary bypass. He without difficulty. The antegrade catheter and venous cannula were then removed. Protamine was administered. No adverse effects were noted. The arterial cannula was removed. All surgical sites were then inspected and found to be hemostatic. The mediastinum was copiously irrigated with warm saline solution. Soft tissue was reapproximated over the ascending aorta as well as over the apex of the heart. A straight 32-[place] chest tube was placed, directed into the left pleural space. Two additional straight 32 [place] chest tubes were placed direct into the mediastinum. These were secured to the skin using sutures. Antibiotic solution was used to irrigate the mediastinum as well. The sternum was then reapproximated using stainless steel wires in a [id number] fashion. The remainder of the wound was closed in layers. A sterile dressing was applied. The patient appeared to tolerate the procedure well. He returned to the ICU in critical but stable condition.
[2016-03-24 10:38] LABS: Glucose,Whole Blood 106 mg/dL (75-99)
[2016-03-24 12:42] LABS: Glucose,Whole Blood 110 mg/dL (75-99)
[2016-03-24] MEDS: LACTATED RINGERS 1,000 ML IV SCH (12:43)
[2016-03-24] MEDS ORDERED: MAGNESIUM HYDROXIDE 2,400 MG/10 ML CUP PO PRN (14:36)
[2016-03-24] MEDS ORDERED: BISACODYL 10 MG SUPP RECTAL PRN (14:36)
[2016-03-24 14:48] LABS: Glucose,Whole Blood 141 mg/dL (75-99)
--- NOTE | 2016-03-24 15:04 | P.PN ---
Subjective Principal diagnosis: Unstable angina History of present illness: This is a 75-year-old white male, heavy smoker, known history of diabetes, hypertension, dyslipidemia, patient presented on outpatient basis with precordial chest pain. His pain was moderate in intensity, and has been going on for about 4 weeks. His stress test revealed evidence of inferior wall myocardial infarction, and areas of estephanie-infarct ischemia. Echocardiogram showed inferior wall TX hence the patient underwent cardiac catheterization by Dr. Williamson, and he was found to have two-vessel disease. Dr. Farley was consulted for angioplasty, of the mid LAD lesion, attempt was made, but angioplasty could not be done. Patient was also found to have totally occluded RCA in the distal portion which was felt to be chronic and there was irregular ectatic changes with an area of 95% stenosed in its midportion and subtotal occlusion distally prior to the bifurcation into PDA and PLV. Considering the patient had failed attempted angioplasty of LAD, cardiac surgery is being consulted, and patient will likely undergo myocardial revascularization in the next couple of days. Going back to his pulmonary status, patient smoked since he was 17 years old, he smoked on average of one pack per day for so many years. However he denies symptoms of cough wheezing or shortness of breath on exertion. Patient was never diagnosed as having COPD, and never had a PFT on outpatient basis. Physically, the patient is quite active, he is able to climb 2 flights of stairs , able to walk a mile easily and does not have symptoms suggestive year COPD. Denies any headaches or blurred vision or dizziness. Denies any nausea vomiting abdominal pain. Denies shortness of breath as noted above. Denies any symptoms to suggest significant degenerative joint disease. Cardiac luque please refer to above. Patient was reevaluated today on 03/22/2016, he continues to do well, however on physical examination he was noted to have some wheezing hence I started the patient today on DuoNeb. Patient is scheduled to undergo myocardial revascularization tomorrow in a.m. CT of the chest was reviewed, bedside PFT is pending. Patient was reevaluated today on 03/24/2016, patient is status post CABG 490% stenosis of the midportion of the LAD and 95% stenosis of the midportion of the RCA. Patient is postoperative day #1, he was extubated last night uneventfully. Doing quite well, chest x-ray showed some minimal basilar atelectasis otherwise the patient's overall postoperative course seems uneventful. Labs were reviewed, CBC is relatively normal hemoglobin is 10.5 Objective - Vital Signs Vital signs: Vital Signs Temp 99.0 F 03/24/16 12:00 Pulse 102 H 03/24/16 13:00 Resp 14 03/24/16 12:00 BP 90/55 03/24/16 12:30 Pulse Ox 96 03/24/16 13:00 Intake & Output 03/23/16 03/24/16 03/24/16 18:59 06:59 18:59 Intake Total 722.5 6341.233 2141.539 Output Total 3481 1233 518 Balance -2758.5 166.877 870.539 Weight 96.9 kg Intake: IV 260 950 470 ACETAMINOPHEN IV (For NPO 100 100 100 ) 1,000 mg In Empty Bag 1 bag @ 400 mls/hr IVPB Q6HR JG Rx#:[id number] CO/CI INTAKE 160 330 20 Lactated Ringers 1,000 ml 520 350 @ 50 mls/hr IV .Q20H JG Rx#:[id number] Intake, IV Titration 462.5 339.877 318.539 Amount Albumin Human 5% 250 ml 250 In Empty Bag 1 bag @ 250 mls/hr IVPB Q1HR PRN Rx#: [id number] Insulin Regular 100 unit 12.5 39.877 18.539 In Sodium Chloride 0.9% 100 ml @ Per Protocol IV .Q0M JG Rx#:[id number] Lactated Ringers 1,000 ml 100 @ 50 mls/hr IV .Q20H JG Rx#:[id number] Magnesium Sulfate-D5w Pmx 200 1 gm In Dextrose/Water 1 100ml.bag @ 100 mls/hr IVPB Q1H JG Rx#: [id number] Potassium Chloride 10 meq 200 In Water For Injection 1 100ml.bag @ 100 mls/hr IVPB Q1H JG Rx#: [id number] ceFAZolin 2 gm In Sodium 100 100 100 Chloride 0.9% 100 ml @ 100 mls/hr IVPB Q8HR JG Rx#:[id number] Oral 110 600 Output: Chest Tube Drainage 456 377 218 Left Lateral Chest 128 87 38 Mediastinal 328 290 180 Drainage 40 15 Right Calf 40 15 Urine 985 841 300 Estimated Blood Loss 1999 Other: Voiding Method Indwelling Catheter Indwelling Catheter Indwelling Catheter ABP, PAP, CO, CI - Last Documented Arterial Blood Pressure 112/53 Pulmonary Artery Pressure 21/14 Cardiac Output 5.4 Cardiac Index 2.5 - Exam Physical Exam: Revealed a 75-year-old white male in no distress HEENT:[Neck is supple.] [No neck masses.] [No thyromegaly.] [No JVD.] Chest: [Relatively clear except for some wheezing on forced expiratory maneuver] Cardiac Exam: [Normal S1 and S2, no S3 gallop, no murmur.] Abdomen: [Soft, nontender, no megaly, no rebound, no guarding, normal bowel sounds.] Extremities: [No clubbing, no edema, no cyanosis.] Neurological Exam: [No focal neurologic deficit.] - Labs CBC & Chem 7: 03/24/16 05:06 03/24/16 05:06 Labs: Abnormal Lab Results - Last 24 Hours (Table) 03/22/16 03/23/16 03/23/16 Range/Units 03:58 15:49 15:51 WBC 14.8 H (3.8-10.6) k/uL RBC 4.08 L (4.30-5.90) m/uL Hgb 11.9 L D (13.0-17.5) gm/dL Hct 36.2 L (39.0-53.0) % Plt Count 106 L (150-450) k/uL Neutrophils # 12.7 H (1.3-7.7) k/uL Lymphocytes # (1.0-4.8) k/uL PT (9.0-12.0) sec ABG pCO2 (35-45) mmHg ABG pO2 (83-108) mmHg ABG HCO3 (21-25) mmol/L ABG Total CO2 (19-24) mmol/L ABG O2 Saturation (94-97) % Creatinine (0.66-1.25) mg/dL Glucose (74-99) mg/dL POC Glucose (mg/dL) 152 H (75-99) mg/dL Calcium (8.4-10.2) mg/dL Magnesium (1.6-2.3) mg/dL Alkaline Phosphatase (38-126) U/L Total Protein (6.3-8.2) g/dL Albumin (3.5-5.0) g/dL Crossmatch See Detail 03/23/16 03/23/16 03/23/16 Range/Units 15:51 15:51 16:28 WBC (3.8-10.6) k/uL RBC (4.30-5.90) m/uL Hgb (13.0-17.5) gm/dL Hct (39.0-53.0) % Plt Count (150-450) k/uL Neutrophils # (1.3-7.7) k/uL Lymphocytes # (1.0-4.8) k/uL PT 12.1 H (9.0-12.0) sec ABG pCO2 46 H (35-45) mmHg ABG pO2 181 H (83-108) mmHg ABG HCO3 26 H (21-25) mmol/L ABG Total CO2 27 H (19-24) mmol/L ABG O2 Saturation 100.0 H (94-97) % Creatinine 0.50 L (0.66-1.25) mg/dL Glucose 153 H (74-99) mg/dL POC Glucose (mg/dL) (75-99) mg/dL Calcium 7.9 L (8.4-10.2) mg/dL Magnesium 2.5 H (1.6-2.3) mg/dL Alkaline Phosphatase 32 L (38-126) U/L Total Protein 4.1 L (6.3-8.2) g/dL Albumin 2.5 L (3.5-5.0) g/dL Crossmatch 03/23/16 03/23/16 03/23/16 Range/Units 16:56 18:05 19:00 WBC 14.6 H (3.8-10.6) k/uL RBC 3.74 L (4.30-5.90) m/uL Hgb 11.0 L (13.0-17.5) gm/dL Hct 33.1 L (39.0-53.0) % Plt Count 103 L (150-450) k/uL Neutrophils # (1.3-7.7) k/uL Lymphocytes # (1.0-4.8) k/uL PT (9.0-12.0) sec ABG pCO2 (35-45) mmHg ABG pO2 (83-108) mmHg ABG HCO3 (21-25) mmol/L ABG Total CO2 (19-24) mmol/L ABG O2 Saturation (94-97) % Creatinine (0.66-1.25) mg/dL Glucose (74-99) mg/dL POC Glucose (mg/dL) 151 H 146 H (75-99) mg/dL Calcium (8.4-10.2) mg/dL Magnesium (1.6-2.3) mg/dL Alkaline Phosphatase (38-126) U/L Total Protein (6.3-8.2) g/dL Albumin (3.5-5.0) g/dL Crossmatch 03/23/16 03/23/16 03/23/16 Range/Units 19:01 19:53 20:45 WBC (3.8-10.6) k/uL RBC (4.30-5.90) m/uL Hgb (13.0-17.5) gm/dL Hct (39.0-53.0) % Plt Count (150-450) k/uL Neutrophils # (1.3-7.7) k/uL Lymphocytes # (1.0-4.8) k/uL PT (9.0-12.0) sec ABG pCO2 (35-45) mmHg ABG pO2 81 L (83-108) mmHg ABG HCO3 (21-25) mmol/L ABG Total CO2 (19-24) mmol/L ABG O2 Saturation (94-97) % Creatinine (0.66-1.25) mg/dL Glucose (74-99) mg/dL POC Glucose (mg/dL) 153 H 152 H (75-99) mg/dL Calcium (8.4-10.2) mg/dL Magnesium (1.6-2.3) mg/dL Alkaline Phosphatase (38-126) U/L Total Protein (6.3-8.2) g/dL Albumin (3.5-5.0) g/dL Crossmatch 03/23/16 03/23/16 03/23/16 Range/Units 20:46 21:52 21:55 WBC (3.8-10.6) k/uL RBC (4.30-5.90) m/uL Hgb (13.0-17.5) gm/dL Hct (39.0-53.0) % Plt Count (150-450) k/uL Neutrophils # (1.3-7.7) k/uL Lymphocytes # (1.0-4.8) k/uL PT (9.0-12.0) sec ABG pCO2 (35-45) mmHg ABG pO2 (83-108) mmHg ABG HCO3 (21-25) mmol/L ABG Total CO2 (19-24) mmol/L ABG O2 Saturation (94-97) % Creatinine 0.50 L (0.66-1.25) mg/dL Glucose 130 H (74-99) mg/dL POC Glucose (mg/dL) 144 H 127 H (75-99) mg/dL Calcium 7.8 L (8.4-10.2) mg/dL Magnesium (1.6-2.3) mg/dL Alkaline Phosphatase (38-126) U/L Total Protein (6.3-8.2) g/dL Albumin (3.5-5.0) g/dL Crossmatch 03/23/16 03/23/16 03/24/16 Range/Units 21:55 22:57 01:12 WBC 13.0 H (3.8-10.6) k/uL RBC 3.74 L (4.30-5.90) m/uL Hgb 11.3 L (13.0-17.5) gm/dL Hct 33.0 L (39.0-53.0) % Plt Count 109 L (150-450) k/uL Neutrophils # (1.3-7.7) k/uL Lymphocytes # (1.0-4.8) k/uL PT (9.0-12.0) sec ABG pCO2 (35-45) mmHg ABG pO2 (83-108) mmHg ABG HCO3 (21-25) mmol/L ABG Total CO2 (19-24) mmol/L ABG O2 Saturation (94-97) % Creatinine (0.66-1.25) mg/dL Glucose (74-99) mg/dL POC Glucose (mg/dL) 115 H 112 H (75-99) mg/dL Calcium (8.4-10.2) mg/dL Magnesium (1.6-2.3) mg/dL Alkaline Phosphatase (38-126) U/L Total Protein (6.3-8.2) g/dL Albumin (3.5-5.0) g/dL Crossmatch 03/24/16 03/24/16 03/24/16 Range/Units 02:12 03:03 04:06 WBC (3.8-10.6) k/uL RBC (4.30-5.90) m/uL Hgb (13.0-17.5) gm/dL Hct (39.0-53.0) % Plt Count (150-450) k/uL Neutrophils # (1.3-7.7) k/uL Lymphocytes # (1.0-4.8) k/uL PT (9.0-12.0) sec ABG pCO2 (35-45) mmHg ABG pO2 (83-108) mmHg ABG HCO3 (21-25) mmol/L ABG Total CO2 (19-24) mmol/L ABG O2 Saturation (94-97) % Creatinine (0.66-1.25) mg/dL Glucose (74-99) mg/dL POC Glucose (mg/dL) 141 H 135 H 123 H (75-99) mg/dL Calcium (8.4-10.2) mg/dL Magnesium (1.6-2.3) mg/dL Alkaline Phosphatase (38-126) U/L Total Protein (6.3-8.2) g/dL Albumin (3.5-5.0) g/dL Crossmatch 03/24/16 03/24/16 03/24/16 Range/Units 05:06 05:06 05:07 WBC 12.5 H (3.8-10.6) k/uL RBC 3.54 L (4.30-5.90) m/uL Hgb 10.5 L (13.0-17.5) gm/dL Hct 31.3 L (39.0-53.0) % Plt Count 108 L (150-450) k/uL Neutrophils # 10.7 H (1.3-7.7) k/uL Lymphocytes # 0.9 L (1.0-4.8) k/uL PT (9.0-12.0) sec ABG pCO2 (35-45) mmHg ABG pO2 (83-108) mmHg ABG HCO3 (21-25) mmol/L ABG Total CO2 (19-24) mmol/L ABG O2 Saturation (94-97) % Creatinine 0.52 L (0.66-1.25) mg/dL Glucose 108 H (74-99) mg/dL POC Glucose (mg/dL) 113 H (75-99) mg/dL Calcium 7.8 L (8.4-10.2) mg/dL Magnesium (1.6-2.3) mg/dL Alkaline Phosphatase (38-126) U/L Total Protein 4.7 L (6.3-8.2) g/dL Albumin 2.9 L (3.5-5.0) g/dL Crossmatch 03/24/16 03/24/16 03/24/16 Range/Units 06:33 08:18 09:01 WBC (3.8-10.6) k/uL RBC (4.30-5.90) m/uL Hgb (13.0-17.5) gm/dL Hct (39.0-53.0) % Plt Count (150-450) k/uL Neutrophils # (1.3-7.7) k/uL Lymphocytes # (1.0-4.8) k/uL PT (9.0-12.0) sec ABG pCO2 (35-45) mmHg ABG pO2 (83-108) mmHg ABG HCO3 (21-25) mmol/L ABG Total CO2 (19-24) mmol/L ABG O2 Saturation (94-97) % Creatinine (0.66-1.25) mg/dL Glucose (74-99) mg/dL POC Glucose (mg/dL) 156 H 147 H 175 H (75-99) mg/dL Calcium (8.4-10.2) mg/dL Magnesium (1.6-2.3) mg/dL Alkaline Phosphatase (38-126) U/L Total Protein (6.3-8.2) g/dL Albumin (3.5-5.0) g/dL Crossmatch 03/24/16 03/24/16 03/24/16 Range/Units 10:37 12:40 14:46 WBC (3.8-10.6) k/uL RBC (4.30-5.90) m/uL Hgb (13.0-17.5) gm/dL Hct (39.0-53.0) % Plt Count (150-450) k/uL Neutrophils # (1.3-7.7) k/uL Lymphocytes # (1.0-4.8) k/uL PT (9.0-12.0) sec ABG pCO2 (35-45) mmHg ABG pO2 (83-108) mmHg ABG HCO3 (21-25) mmol/L ABG Total CO2 (19-24) mmol/L ABG O2 Saturation (94-97) % Creatinine (0.66-1.25) mg/dL Glucose (74-99) mg/dL POC Glucose (mg/dL) 106 H 110 H 141 H (75-99) mg/dL Calcium (8.4-10.2) mg/dL Magnesium (1.6-2.3) mg/dL Alkaline Phosphatase (38-126) U/L Total Protein (6.3-8.2) g/dL Albumin (3.5-5.0) g/dL Crossmatch Microbiology - Last 24 Hours (Table) 03/21/16 14:56 Nasal Screen MRSA/MSSA (JESSY) - Final Nasal Swab Staphylococcus aureus,Not MRSA Assessment and Plan Plan: #1 Coronary artery disease status post coronary artery bypass grafting utilizing a NAVARRO to the LAD and a saphenous vein graft to the PDA. Postoperative day #1 #2 patient was extubated last night uneventfully and he tolerated the extubation well #3 Hypertension. #4 Hyperlipidemia. #5 Diabetes mellitus. #6 Suspect underlying chronic obstructive pulmonary disease. Recommendation: Continue present treatment plan, continue bronchodilators, incentive spirometry, early ambulation, and we'll continue to follow. Time with Patient: Less than 30
[2016-03-24 16:15] LABS: ABG Base Excess 0.7 mmol/L; ABG HCO3 26 mmol/L (21-25); ABG Oxygen Saturation 99.5 % (94-97); ABG PCO2 43 mmHg (35-45); ABG PH 7.39 (7.35-7.45); ABG PO2 169 mmHg (83-108); ABG TCO2 27 mmol/L (19-24)
[2016-03-24 16:16] LABS: ABG Base Excess -0.6 mmol/L; ABG HCO3 25 mmol/L (21-25); ABG PCO2 46 mmHg (35-45); ABG PH 7.35 (7.35-7.45); ABG PO2 139 mmHg (83-108); ABG TCO2 26 mmol/L (19-24)
[2016-03-24 16:17] LABS: ABG Base Excess -2.2 mmol/L; ABG HCO3 23 mmol/L (21-25); ABG PCO2 44 mmHg (35-45); ABG PH 7.34 (7.35-7.45); ABG PO2 140 mmHg (83-108); ABG TCO2 24 mmol/L (19-24)
[2016-03-24 16:18] LABS: ABG Base Excess 2.9 mmol/L; ABG HCO3 28 mmol/L (21-25); ABG Oxygen Saturation 99.9 % (94-97); ABG PCO2 47 mmHg (35-45); ABG PH 7.39 (7.35-7.45); ABG PO2 273 mmHg (83-108); ABG TCO2 29 mmol/L (19-24)
[2016-03-24 16:19] LABS: ABG Base Excess 1.6 mmol/L; ABG HCO3 26 mmol/L (21-25); ABG Oxygen Saturation 99.8 % (94-97); ABG PCO2 39 mmHg (35-45); ABG PH 7.43 (7.35-7.45); ABG PO2 232 mmHg (83-108); ABG TCO2 27 mmol/L (19-24)
[2016-03-24 16:20] LABS: ABG Base Excess -0.2 mmol/L; ABG HCO3 25 mmol/L (21-25); ABG Oxygen Saturation 99.9 % (94-97); ABG PCO2 45 mmHg (35-45); ABG PH 7.36 (7.35-7.45); ABG PO2 338 mmHg (83-108); ABG TCO2 26 mmol/L (19-24)
[2016-03-24 16:21] LABS: ABG HCO3 24 mmol/L (21-25); ABG PCO2 42 mmHg (35-45); ABG PH 7.38 (7.35-7.45); ABG PO2 257 mmHg (83-108); ABG TCO2 25 mmol/L (19-24)
[2016-03-24 16:22] LABS: Glucose,Whole Blood 130 mg/dL (75-99)
[2016-03-24 16:22] LABS: ABG Base Excess -0.5 mmol/L; ABG Oxygen Saturation 99.9 % (94-97)
[2016-03-24] MEDS: NICOTINE 21MG/24HR PATCH TRANSDERM SCH (16:25)
[2016-03-24 17:24] LABS: Glucose,Whole Blood 133 mg/dL (75-99)
[2016-03-24] MEDS: KETOROLAC 30 MG/ML 1 ML VIAL IVP PRN ×2 (17:39→23:29)
[2016-03-24 19:04] LABS: Glucose,Whole Blood 167 mg/dL (75-99)
[2016-03-24 20:35] LABS: Glucose,Whole Blood 148 mg/dL (75-99)
[2016-03-24 21:26] LABS: Glucose,Whole Blood 128 mg/dL (75-99)
[2016-03-24] MEDS: SENNOSIDES-DOCUSATE SODIUM 1 EACH TAB PO SCH (21:39)
[2016-03-24 23:20] LABS: Glucose,Whole Blood 129 mg/dL (75-99)
[2016-03-25 00:17] LABS: Glucose,Whole Blood 129 mg/dL (75-99)
--- NOTE | 2016-03-25 00:24 | P.PN ---
Subjective Principal diagnosis: CAD and status post CABG This is a pleasant 75-year-old gentleman who was seen in the office by Dr. Williamson with a chest discomfort where the patient was referred to the hospital. He underwent a heart catheterization which showed total occlusion of the right coronary artery with a critical mid LAD. I attempted angioplasty of the mid LAD but it was unsuccessful because I was unable to advance a small balloon across the LAD. The patient underwent coronary artery bypass grafting 2 where he received NAVARRO into LAD and SVG to RCA. From the cardiac standpoint, he is doing good. He continues to be in normal sinus mechanism with marginally low blood pressure. He continues to be on dual antiplatelet therapy along with a statin and metoprolol. Objective - Vital Signs Vital signs: Vital Signs Temp 98.4 F 03/25/16 00:00 Pulse 101 H 03/25/16 00:00 Resp 16 03/24/16 20:00 BP 99/53 03/25/16 00:00 Pulse Ox 96 03/25/16 00:00 Intake & Output 03/24/16 03/24/16 03/25/16 06:59 18:59 06:59 Intake Total 3346.927 8191.532 625.122 Output Total 1233 743 345 Balance 166.877 901.532 280.122 Weight 96.9 kg Intake: IV 950 720 300 ACETAMINOPHEN IV (For NPO 100 100 ) 1,000 mg In Empty Bag 1 bag @ 400 mls/hr IVPB Q6HR [facility] Rx#:[id number] CO/CI INTAKE 330 20 Lactated Ringers 1,000 ml 520 600 300 @ 50 mls/hr IV .Q20H JG Rx#:[id number] Intake, IV Titration 339.877 324.532 25.122 Amount Insulin Regular 100 unit 39.877 24.532 25.122 In Sodium Chloride 0.9% 100 ml @ Per Protocol IV .Q0M JG Rx#:[id number] Magnesium Sulfate-D5w Pmx 200 1 gm In Dextrose/Water 1 100ml.bag @ 100 mls/hr IVPB Q1H JG Rx#: [id number] Potassium Chloride 10 meq 200 In Water For Injection 1 100ml.bag @ 100 mls/hr IVPB Q1H JG Rx#: [id number] ceFAZolin 2 gm In Sodium 100 100 Chloride 0.9% 100 ml @ 100 mls/hr IVPB Q8HR [facility] Rx#:[id number] Oral 110 600 300 Output: Chest Tube Drainage 377 318 130 Left Lateral Chest 87 68 90 Mediastinal 290 250 40 Drainage 15 45 Right Calf 15 45 Urine 841 425 170 Other: Voiding Method Indwelling Catheter Indwelling Catheter Indwelling Catheter ABP, PAP, CO, CI - Last Documented Arterial Blood Pressure 94/52 Pulmonary Artery Pressure 21/14 Cardiac Output 5.4 Cardiac Index 2.5 - Constitutional General appearance: Present: no acute distress - Labs CBC & Chem 7: 03/24/16 05:06 03/24/16 05:06 Labs: Abnormal Lab Results - Last 24 Hours (Table) 03/23/16 03/23/16 03/23/16 Range/Units 08:52 10:14 11:22 WBC (3.8-10.6) k/uL RBC (4.30-5.90) m/uL Hgb (13.0-17.5) gm/dL Hct (39.0-53.0) % Plt Count (150-450) k/uL Neutrophils # (1.3-7.7) k/uL Lymphocytes # (1.0-4.8) k/uL ABG pH 7.34 L (7.35-7.45) ABG pCO2 46 H (35-45) mmHg ABG pO2 169 H 139 H 140 H (83-108) mmHg ABG HCO3 26 H (21-25) mmol/L ABG Total CO2 27 H 26 H (19-24) mmol/L ABG O2 Saturation 99.5 H 99.0 H 99.0 H (94-97) % ABG Hematocrit 48 H (34.0-46.0) % ABG Potassium (3.4-4.5) mmol/L Creatinine (0.66-1.25) mg/dL Glucose (74-99) mg/dL POC Glucose (mg/dL) (75-99) mg/dL Calcium (8.4-10.2) mg/dL Total Protein (6.3-8.2) g/dL Albumin (3.5-5.0) g/dL Arterial Blood Potassium (3.4-4.5) mmol/L 03/23/16 03/23/16 03/23/16 Range/Units 12:20 12:52 13:28 WBC (3.8-10.6) k/uL RBC (4.30-5.90) m/uL Hgb (13.0-17.5) gm/dL Hct (39.0-53.0) % Plt Count (150-450) k/uL Neutrophils # (1.3-7.7) k/uL Lymphocytes # (1.0-4.8) k/uL ABG pH (7.35-7.45) ABG pCO2 47 H (35-45) mmHg ABG pO2 273 H 232 H 338 H (83-108) mmHg ABG HCO3 28 H 26 H (21-25) mmol/L ABG Total CO2 29 H 27 H 26 H (19-24) mmol/L ABG O2 Saturation 99.9 H 99.8 H 99.9 H (94-97) % ABG Hematocrit 31 L 30 L 30 L (34.0-46.0) % ABG Potassium 4.6 H 4.7 H (3.4-4.5) mmol/L Creatinine (0.66-1.25) mg/dL Glucose (74-99) mg/dL POC Glucose (mg/dL) (75-99) mg/dL Calcium (8.4-10.2) mg/dL Total Protein (6.3-8.2) g/dL Albumin (3.5-5.0) g/dL Arterial Blood Potassium 4.6 H 4.7 H (3.4-4.5) mmol/L 03/23/16 03/24/16 03/24/16 Range/Units 14:36 01:12 02:12 WBC (3.8-10.6) k/uL RBC (4.30-5.90) m/uL Hgb (13.0-17.5) gm/dL Hct (39.0-53.0) % Plt Count (150-450) k/uL Neutrophils # (1.3-7.7) k/uL Lymphocytes # (1.0-4.8) k/uL ABG pH (7.35-7.45) ABG pCO2 (35-45) mmHg ABG pO2 257 H (83-108) mmHg ABG HCO3 (21-25) mmol/L ABG Total CO2 25 H (19-24) mmol/L ABG O2 Saturation 99.9 H (94-97) % ABG Hematocrit (34.0-46.0) % ABG Potassium (3.4-4.5) mmol/L Creatinine (0.66-1.25) mg/dL Glucose (74-99) mg/dL POC Glucose (mg/dL) 112 H 141 H (75-99) mg/dL Calcium (8.4-10.2) mg/dL Total Protein (6.3-8.2) g/dL Albumin (3.5-5.0) g/dL Arterial Blood Potassium (3.4-4.5) mmol/L 03/24/16 03/24/16 03/24/16 Range/Units 03:03 04:06 05:06 WBC (3.8-10.6) k/uL RBC (4.30-5.90) m/uL Hgb (13.0-17.5) gm/dL Hct (39.0-53.0) % Plt Count (150-450) k/uL Neutrophils # (1.3-7.7) k/uL Lymphocytes # (1.0-4.8) k/uL ABG pH (7.35-7.45) ABG pCO2 (35-45) mmHg ABG pO2 (83-108) mmHg ABG HCO3 (21-25) mmol/L ABG Total CO2 (19-24) mmol/L ABG O2 Saturation (94-97) % ABG Hematocrit (34.0-46.0) % ABG Potassium (3.4-4.5) mmol/L Creatinine 0.52 L (0.66-1.25) mg/dL Glucose 108 H (74-99) mg/dL POC Glucose (mg/dL) 135 H 123 H (75-99) mg/dL Calcium 7.8 L (8.4-10.2) mg/dL Total Protein 4.7 L (6.3-8.2) g/dL Albumin 2.9 L (3.5-5.0) g/dL Arterial Blood Potassium (3.4-4.5) mmol/L 03/24/16 03/24/16 03/24/16 Range/Units 05:06 05:07 06:33 WBC 12.5 H (3.8-10.6) k/uL RBC 3.54 L (4.30-5.90) m/uL Hgb 10.5 L (13.0-17.5) gm/dL Hct 31.3 L (39.0-53.0) % Plt Count 108 L (150-450) k/uL Neutrophils # 10.7 H (1.3-7.7) k/uL Lymphocytes # 0.9 L (1.0-4.8) k/uL ABG pH (7.35-7.45) ABG pCO2 (35-45) mmHg ABG pO2 (83-108) mmHg ABG HCO3 (21-25) mmol/L ABG Total CO2 (19-24) mmol/L ABG O2 Saturation (94-97) % ABG Hematocrit (34.0-46.0) % ABG Potassium (3.4-4.5) mmol/L Creatinine (0.66-1.25) mg/dL Glucose (74-99) mg/dL POC Glucose (mg/dL) 113 H 156 H (75-99) mg/dL Calcium (8.4-10.2) mg/dL Total Protein (6.3-8.2) g/dL Albumin (3.5-5.0) g/dL Arterial Blood Potassium (3.4-4.5) mmol/L 03/24/16 03/24/16 03/24/16 Range/Units 08:18 09:01 10:37 WBC (3.8-10.6) k/uL RBC (4.30-5.90) m/uL Hgb (13.0-17.5) gm/dL Hct (39.0-53.0) % Plt Count (150-450) k/uL Neutrophils # (1.3-7.7) k/uL Lymphocytes # (1.0-4.8) k/uL ABG pH (7.35-7.45) ABG pCO2 (35-45) mmHg ABG pO2 (83-108) mmHg ABG HCO3 (21-25) mmol/L ABG Total CO2 (19-24) mmol/L ABG O2 Saturation (94-97) % ABG Hematocrit (34.0-46.0) % ABG Potassium (3.4-4.5) mmol/L Creatinine (0.66-1.25) mg/dL Glucose (74-99) mg/dL POC Glucose (mg/dL) 147 H 175 H 106 H (75-99) mg/dL Calcium (8.4-10.2) mg/dL Total Protein (6.3-8.2) g/dL Albumin (3.5-5.0) g/dL Arterial Blood Potassium (3.4-4.5) mmol/L 03/24/16 03/24/16 03/24/16 Range/Units 12:40 14:46 16:20 WBC (3.8-10.6) k/uL RBC (4.30-5.90) m/uL Hgb (13.0-17.5) gm/dL Hct (39.0-53.0) % Plt Count (150-450) k/uL Neutrophils # (1.3-7.7) k/uL Lymphocytes # (1.0-4.8) k/uL ABG pH (7.35-7.45) ABG pCO2 (35-45) mmHg ABG pO2 (83-108) mmHg ABG HCO3 (21-25) mmol/L ABG Total CO2 (19-24) mmol/L ABG O2 Saturation (94-97) % ABG Hematocrit (34.0-46.0) % ABG Potassium (3.4-4.5) mmol/L Creatinine (0.66-1.25) mg/dL Glucose (74-99) mg/dL POC Glucose (mg/dL) 110 H 141 H 130 H (75-99) mg/dL Calcium (8.4-10.2) mg/dL Total Protein (6.3-8.2) g/dL Albumin (3.5-5.0) g/dL Arterial Blood Potassium (3.4-4.5) mmol/L 03/24/16 03/24/16 03/24/16 Range/Units 17:21 19:03 20:31 WBC (3.8-10.6) k/uL RBC (4.30-5.90) m/uL Hgb (13.0-17.5) gm/dL Hct (39.0-53.0) % Plt Count (150-450) k/uL Neutrophils # (1.3-7.7) k/uL Lymphocytes # (1.0-4.8) k/uL ABG pH (7.35-7.45) ABG pCO2 (35-45) mmHg ABG pO2 (83-108) mmHg ABG HCO3 (21-25) mmol/L ABG Total CO2 (19-24) mmol/L ABG O2 Saturation (94-97) % ABG Hematocrit (34.0-46.0) % ABG Potassium (3.4-4.5) mmol/L Creatinine (0.66-1.25) mg/dL Glucose (74-99) mg/dL POC Glucose (mg/dL) 133 H 167 H 148 H (75-99) mg/dL Calcium (8.4-10.2) mg/dL Total Protein (6.3-8.2) g/dL Albumin (3.5-5.0) g/dL Arterial Blood Potassium (3.4-4.5) mmol/L 03/24/16 03/24/16 03/25/16 Range/Units 21:22 23:16 00:15 WBC (3.8-10.6) k/uL RBC (4.30-5.90) m/uL Hgb (13.0-17.5) gm/dL Hct (39.0-53.0) % Plt Count (150-450) k/uL Neutrophils # (1.3-7.7) k/uL Lymphocytes # (1.0-4.8) k/uL ABG pH (7.35-7.45) ABG pCO2 (35-45) mmHg ABG pO2 (83-108) mmHg ABG HCO3 (21-25) mmol/L ABG Total CO2 (19-24) mmol/L ABG O2 Saturation (94-97) % ABG Hematocrit (34.0-46.0) % ABG Potassium (3.4-4.5) mmol/L Creatinine (0.66-1.25) mg/dL Glucose (74-99) mg/dL POC Glucose (mg/dL) 128 H 129 H 129 H (75-99) mg/dL Calcium (8.4-10.2) mg/dL Total Protein (6.3-8.2) g/dL Albumin (3.5-5.0) g/dL Arterial Blood Potassium (3.4-4.5) mmol/L Assessment and Plan Plan: Assessment #1 coronary artery disease and status post CABG 2 #2 multiple comorbid conditions. Plan #1 continue the patient on the current medical treatment #2 continue following up with him
[2016-03-25] MEDS: HEPARIN SODIUM,PORCINE 5,000 UNIT/ML 1 ML VIAL SQ SCH ×4 (01:12→23:57)
[2016-03-25] MEDS: INSULIN REGULAR 100 UNIT in SODIUM CHLORIDE 0.9% 100 ML IV SCH (01:14)
[2016-03-25 01:22] LABS: Glucose,Whole Blood 122 mg/dL (75-99)
[2016-03-25 01:44] LABS: Magnesium 2.2 mg/dL (1.6-2.3); Potassium 4.1 mmol/L (3.5-5.1)
[2016-03-25 02:23] LABS: Glucose,Whole Blood 102 mg/dL (75-99)
[2016-03-25 03:14] LABS: Glucose,Whole Blood 91 mg/dL (75-99)
[2016-03-25 04:14] LABS: Glucose,Whole Blood 109 mg/dL (75-99)
[2016-03-25 05:23] LABS: Glucose,Whole Blood 121 mg/dL (75-99)
[2016-03-25] MEDS: KETOROLAC 30 MG/ML 1 ML VIAL IVP PRN (05:26)
[2016-03-25 05:42] LABS: Ionized Calcium 4.8 mg/dL (4.5-5.3)
[2016-03-25 05:44] LABS: Basophils % (A) 0 %; CH 29.6; CHCM 33.4; Eosinophils % (A) 0 %; INR 1.1 (<1.1); Luc # (Auto) 0.13; Luc % (Auto) 1; Lymphocytes % (A) 9 %; MCH 29.6 pg (25.0-35.0); MCHC 33.3 g/dL (31.0-37.0); Mean Platelet Volume 7.4; Monocytes # (A) 0.7 k/uL (0-1.0); Monocytes % (A) 6 %; Neutrophils # (A) 8.8 k/uL (1.3-7.7); Neutrophils % (A) 83 %; Prothrombin Time 11.2 sec (9.0-12.0); RBC 2.92 m/uL (4.30-5.90); RDW 13.2 % (11.5-15.5); WBC 10.6 k/uL (3.8-10.6); WBC (Perox) 11.06
[2016-03-25 05:46] LABS: HGB 8.6 gm/dL (13.0-17.5)
[2016-03-25 05:52] LABS: ALT 31 U/L (21-72); AST 32 U/L (17-59); Alkaline Phosphatase 44 U/L (38-126); Anion Gap 7 mmol/L; Blood Urea Nitrogen 14 mg/dL (9-20); Carbon Dioxide 23 mmol/L (22-30); Chloride 101 mmol/L (98-107); Glucose 110 mg/dL (74-99); Magnesium 2.1 mg/dL (1.6-2.3); Non-African American GFR(MDRD) >60 (>60 ml/min/1.73 sqM); Potassium 4.2 mmol/L (3.5-5.1); Sodium 131 mmol/L (137-145); Total Bilirubin 1.9 mg/dL (0.2-1.3); Total Protein 4.5 g/dL (6.3-8.2)
[2016-03-25 06:17] LABS: Manual Review Performed
[2016-03-25 06:20] LABS: Glucose,Whole Blood 120 mg/dL (75-99)
[2016-03-25] MEDS: MAGNESIUM SULFATE-D5W PMX 1 GM in DEXTROSE/WATER 1 100ML.BAG IVPB SCH ×2 (07:03→08:16)
[2016-03-25 07:11] LABS: Glucose,Whole Blood 120 mg/dL (75-99)
[2016-03-25 08:13] LABS: Glucose,Whole Blood 153 mg/dL (75-99)
[2016-03-25] MEDS: LACTATED RINGERS 1,000 ML IV SCH (08:16)
[2016-03-25] MEDS: ATORVASTATIN 40 MG TAB PO SCH (08:31)
[2016-03-25] MEDS: CLOPIDOGREL 75 MG TAB PO SCH (08:31)
[2016-03-25] MEDS: METOPROLOL TARTRATE 12.5 MG TAB PO SCH ×2 (08:31→20:29)
[2016-03-25] MEDS: ASPIRIN 325 MG TAB PO SCH (08:31)
[2016-03-25] MEDS: PANTOPRAZOLE 40 MG TABLET PO SCH (08:31)
[2016-03-25] MEDS: NICOTINE 21MG/24HR PATCH TRANSDERM SCH (08:32)
[2016-03-25] MEDS: MUPIROCIN 2% OINT 22 GM TUBE NASAL SCH ×2 (08:32→20:29)
--- NOTE | 2016-03-25 09:04 | PN ---
DATE OF SERVICE: 03/24/2016 Mr. Chan is a 75-year-old male who was admitted to the hospital with complaints of chest pain and was found to have two vessel coronary artery disease, status post coronary artery bypass graft postop day one now. Patient underwent coronary artery bypass graft utilizing NAVARRO to the LAD and saphenous vein graft to the PDA. Currently, patient extubated last night and patient awake, alert, oriented, x3. Able to sit in the chair and pain is controlled with pain medications. Chest x-ray showed improved aeration. Otherwise, patient denied any fever or chills. REVIEW OF SYSTEMS: CONSTITUTIONAL: No fever. No chills. RESPIRATORY: No cough or sputum production. CARDIOVASCULAR: No worsening chest pain or short of breath. No nausea or vomiting, abdominal pain. GENITOURINARY: Negative. ENDOCRINE: Negative. PSYCHIATRIC: Negative. SKIN: Negative. MUSCULOSKELETAL: Negative. All other fourteen-point review of systems negative except as above. Current medications include: 1. ( ). 2. DuoNeb. 3. Aspirin. 4. Atorvastatin. 5. Cepacol. 6. Dulcolax. 7. Plavix. 8. Heparin subcu. 9. Toradol. 10. Ringer lactate. 11. Milk of magnesia. 12. Reglan. 13. Lopressor. 14. ( ). 15. Protonix. 16. ( ). PHYSICAL EXAMINATION: A 75-year-old male sitting in a chair comfortably. Awake, alert, oriented x3, appears to be in no apparent distress. VITALS: Blood pressure is 94/55, pulse is 98, respiration 18, temperature afebrile, pulse ox 99% on 3 liters nasal cannula. HEENT: Atraumatic, normocephalic. Neck is supple. No JVD. CVS: S1, S2 heard. No murmurs, no gallop. LUNGS: Bilateral air entry is present. Basilar crackles positive. No wheezing. Nonlabored breathing. ABDOMEN: Soft and nontender. Bowel sounds present. [employer]ATOR: Awake, alert, oriented, x3. No focal neurologic deficits. Cranial nerves grossly intact. EXTREMITIES: No edema. Pulses palpable bilaterally. No clubbing or cyanosis. PSYCHIATRIC: Cooperative. LABORATORY DATA: WBC 12.5, hemoglobin 10.5, platelets 108. Sodium 139, potassium 4.0, chloride 106, bicarb is 26, BUN 11, creatinine 0.52, albumin 2.9. IMPRESSION: 1. Status post coronary artery bypass graft postoperative day one currently the patient is extubated. 2. Hypertension. 3. Hyperlipidemia. 4. Diabetes type 2, [id number]. 5. Benign prostatic hypertrophy. 6. Nicotine abuse. 7. Chronic obstructive pulmonary disease not in exacerbation. 8. Deep venous thrombosis prophylaxis with heparin subcu. DISCUSSION AND PLAN: The patient will be continued on the current management and continue with insulin sliding scale for insulin dosing. The patient is tolerating liquid diet. Will continue O2 therapy as needed and continue the current management and further recommendations based on the clinical course.
--- NOTE | 2016-03-25 09:10 | XR ---
EXAMINATION TYPE: XR chest 1V portable DATE OF EXAM: 03/25/2016 9:06 AM COMPARISON: NONE INDICATION: Chest tube TECHNIQUE: Single frontal view of the chest is obtained. FINDINGS: The heart size is normal. The pulmonary vasculature is normal. Some mild left basilar atelectasis may be present. A left side chest tube is present. No pneumothorax is identified. Sternotomy wires are present in the midline. A mediastinal tube appears to be present . A sheath is present on the right. A mild infiltrates present in the periphery of the right midlung. IMPRESSION: 1. Multiple lines and catheters discussed above. 2. Mild infiltrate within the right base. Minimal atelectasis may be present near the chest tube inse rtion site.
[2016-03-25 09:15] LABS: Glucose,Whole Blood 249 mg/dL (75-99)
[2016-03-25 10:23] LABS: Glucose,Whole Blood 202 mg/dL (75-99)
[2016-03-25] MEDS: LEVOFLOXACIN 500 MG TAB PO SCH (10:23)
--- NOTE | 2016-03-25 10:31 | P.PN ---
<Mayito Hopkins - Last Filed: 03/25/16 10:14> Progress Note - Text CV Surgery Nursing POD: #2 coronary artery bypass grafts 2 with placement of a left internal mammary artery to the left anterior descending artery and reverse saphenous vein graft to the posterior descending artery. Endoscopic vein harvesting of the right greater saphenous vein. Intraoperative transesophageal echocardiogram and epi-aortic ultrasonography. Patient awake and alert, no distress noted, sitting up in chair with complaints of incisional chest pain. Vital Signs: Afebrile, T-max 98.2F Vital Signs - 24 hr 03/24/16 03/24/16 03/24/16 10:30 11:00 11:30 Temperature 99.0 F Pulse Rate 96 95 97 Respiratory Rate Blood Pressure 82/50 91/49 91/49 O2 Sat by Pulse 100 97 97 Oximetry 03/24/16 03/24/16 03/24/16 12:00 12:30 13:00 Temperature 99.0 F Pulse Rate 95 112 H 102 H Respiratory 14 Rate Blood Pressure 90/55 90/55 O2 Sat by Pulse 99 96 96 Oximetry 03/24/16 03/24/16 03/24/16 13:30 14:00 14:30 Temperature Pulse Rate 90 91 90 Respiratory Rate Blood Pressure O2 Sat by Pulse 97 97 97 Oximetry 03/24/16 03/24/16 03/24/16 15:00 15:30 16:00 Temperature 98.1 F Pulse Rate 93 96 95 Respiratory 14 Rate Blood Pressure 102/61 102/61 102/61 O2 Sat by Pulse 97 98 96 Oximetry 03/24/16 03/24/16 03/24/16 16:30 17:00 17:30 Temperature Pulse Rate 100 114 H 97 Respiratory Rate Blood Pressure 102/61 O2 Sat by Pulse 97 97 97 Oximetry 03/24/16 03/24/16 03/24/16 18:00 18:30 19:00 Temperature Pulse Rate 103 H 100 95 Respiratory Rate Blood Pressure 104/53 O2 Sat by Pulse 97 96 99 Oximetry 03/24/16 03/24/16 03/24/16 19:30 20:00 20:30 Temperature 97.5 F L Pulse Rate 97 98 103 H Respiratory 16 Rate Blood Pressure 105/58 94/54 81/53 O2 Sat by Pulse 99 99 99 Oximetry 03/24/16 03/24/16 03/24/16 21:00 21:30 22:00 Temperature Pulse Rate 100 94 101 H Respiratory Rate Blood Pressure 98/56 114/63 98/46 O2 Sat by Pulse 100 96 98 Oximetry 03/24/16 03/24/16 03/24/16 22:30 23:00 23:30 Temperature Pulse Rate 96 97 101 H Respiratory Rate Blood Pressure 88/44 87/48 94/53 O2 Sat by Pulse 97 96 96 Oximetry 03/25/16 03/25/16 03/25/16 00:00 00:30 01:00 Temperature 98.4 F Pulse Rate 101 H 101 H 101 H Respiratory 16 Rate Blood Pressure 99/53 91/56 95/52 O2 Sat by Pulse 96 96 97 Oximetry 03/25/16 03/25/16 03/25/16 01:30 02:00 02:30 Temperature Pulse Rate 96 104 H 97 Respiratory Rate Blood Pressure 82/52 83/51 86/54 O2 Sat by Pulse 97 96 98 Oximetry 03/25/16 03/25/16 03/25/16 03:00 03:30 04:00 Temperature 98.2 F Pulse Rate 98 99 99 Respiratory 18 18 Rate Blood Pressure 86/54 91/49 O2 Sat by Pulse 97 97 91 L Oximetry 03/25/16 03/25/16 03/25/16 04:30 05:00 06:00 Temperature Pulse Rate 101 H 101 H 104 H Respiratory 20 Rate Blood Pressure 118/50 98/55 O2 Sat by Pulse 97 97 96 Oximetry 03/25/16 03/25/16 03/25/16 07:00 07:30 08:00 Temperature Pulse Rate 106 H 106 H 111 H Respiratory 18 Rate Blood Pressure 104/70 110/35 110/35 O2 Sat by Pulse 97 97 98 Oximetry 03/25/16 03/25/16 09:00 10:00 Temperature 98.2 F Pulse Rate 108 H 107 H Respiratory Rate Blood Pressure 99/53 95/55 O2 Sat by Pulse 99 98 Oximetry ABP, PAP, CO, CI - Last 8 Hours Arterial Blood Pressure 107/49 Arterial Blood Pressure 118/49 Arterial Blood Pressure 101/45 Arterial Blood Pressure 91/45 Arterial Blood Pressure 97/42 Arterial Blood Pressure 133/52 Arterial Blood Pressure 133/51 Arterial Blood Pressure 141/52 Arterial Blood Pressure 106/49 Arterial Blood Pressure 111/51 Arterial Blood Pressure 117/48 Labs: Short CBC 03/25/16 Range/Units 05:15 WBC 10.6 (3.8-10.6) k/uL Hgb 8.6 L D (13.0-17.5) gm/dL Hct 26.0 L (39.0-53.0) % Plt Count 90 L (150-450) k/uL Neutrophils # 8.8 H (1.3-7.7) k/uL BMP 03/25/16 03/25/16 01:20 05:15 Sodium 131 L Potassium 4.1 4.2 Chloride 101 Carbon Dioxide 23 BUN 14 Creatinine 0.60 L Glucose 110 H Calcium 8.0 L Liver Function 03/25/16 Range/Units 05:15 Total Bilirubin 1.9 H (0.2-1.3) mg/dL AST 32 (17-59) U/L ALT 31 (21-72) U/L Alkaline Phosphatase 44 (38-126) U/L Albumin 2.8 L (3.5-5.0) g/dL IV Fluids: Insulin drip at 4.5 units per hour CVP: 6 mmHg Lungs: Respirations are even and unlabored, breath sounds slightly diminished bilaterally O2 sat: 98% on 3 L of oxygen delivered via nasal cannula I/S: 750-1000 cc. Patient gave return demonstration of proper use the device Heart: S1S2, regular rate and rhythm, bedside telemetry showed a sinus tachycardia with a rate of about 108 Sternum stable, chest incision clean with silverlon dressing clean and dry. Right leg saphenous vein harvest site clean and dry with DAMION drain intact Abdomen: Soft, Positive bowel sounds present in all 4 quadrants. CBGs: 91-167 mg/dL U/O: Marginal via Gonslaes catheter to dependent drainage Chest Tubes: Mediastinal chest tube without visible air leak with 120 mL of serosanguineous drainage over the last 8 hours, 370 mL over the last 24 hours. Left pleural chest tube without visible air leak with 160 mL of serosanguineous drainage over the last 8 hours, 220 mL over the last 24 hours. Intake & Output 03/23/16 03/24/16 03/25/16 03/26/16 06:59 06:59 06:59 06:59 Intake Total 987.32 2122.377 2580.765 559.253 Output Total 1050 4714 1469 205 Balance -62.68 -2591.623 1111.765 354.253 Weight 91.9 kg 96.9 kg Active Medications Acetaminophen/Hydrocodone Bitart ([place] 5-325) 1 each PO Q6HR PRN PRN Reason: Pain Acetaminophen/Hydrocodone Bitart ([place] 5-325) 2 each PO Q6HR PRN PRN Reason: Pain Scale 6 to 10 Albuterol/Ipratropium (Duoneb 0.5 Mg-3 Mg/3 Ml Soln) 3 ml INHALATION RT-Q2H PRN PRN Reason: Shortness Of Breath Or Wheezing Aspirin (Aspirin) 325 mg PO DAILY [facility] Last Admin: 03/25/16 08:31 Dose: 325 mg Atorvastatin Calcium (Lipitor) 40 mg PO DAILY [facility] Last Admin: 03/25/16 08:31 Dose: 40 mg Benzocaine/Menthol (Cepacol Lozenge) 1 each MUCOUS MEM Q2H PRN PRN Reason: Sore Throat Bisacodyl (Dulcolax) 10 mg RECTAL DAILY PRN PRN Reason: Constipation Budesonide/Formoterol Fumarate (Symbicort 160-4.5 Mcg Inhaler) 2 puff INHALATION RT-BID [facility] Clopidogrel Bisulfate (Plavix) 75 mg PO DAILY [facility] Last Admin: 03/25/16 08:31 Dose: 75 mg Heparin Sodium (Porcine) (Heparin) 5,000 unit SQ Q8HR [facility] Last Admin: 03/25/16 08:31 Dose: 5,000 unit Albumin Human 250 ml/ IV (Solution) 250 mls @ 250 mls/hr IVPB Q1HR PRN PRN Reason: For Volume Stop: 03/25/16 15:52 Lactated Ringer's (Lactated Ringers) 1,000 mls @ 50 mls/hr IV .Q20H [facility] Last Admin: 03/25/16 08:16 Dose: 50 mls/hr Insulin Human Regular 100 unit (/ Sodium Chloride) 101 mls @ 0 mls/hr IV .Q0M [facility]; Per Protocol PRN Reason: Protocol Last Titration: 03/25/16 10:22 Dose: 7 units/hr, 7.07 mls/hr Levofloxacin (Levaquin) 500 mg PO Q24H [facility] Last Admin: 03/25/16 10:23 Dose: 500 mg Magnesium Hydroxide (Milk Of Magnesia) 2,400 mg PO BID PRN PRN Reason: Constipation Metoclopramide HCl (Reglan) 10 mg IVP Q4H PRN PRN Reason: Nausea And Vomiting Metoprolol Tartrate (Lopressor) 12.5 mg PO BID [facility] Last Admin: 03/25/16 08:31 Dose: 12.5 mg Miscellaneous Information (Magnesium Per Protocol) 1 each MISCELLANE DAILY PRN ; Protocol PRN Reason: Per Protocol Miscellaneous Information (Phosphorus Per Protocol) 1 each MISCELLANE DAILY PRN ; Protocol PRN Reason: Per Protocol Miscellaneous Information (Potassium Per Protocol) 1 each MISCELLANE DAILY PRN ; Protocol PRN Reason: Per Protocol Mupirocin (Bactroban Oint) 1 applic NASAL BID [facility] Stop: 03/26/16 21:01 Last Admin: 03/25/16 08:32 Dose: 1 applic Nicotine (Habitrol 21mg/24hr Patch) 1 patch TRANSDERM DAILY [facility] Last Admin: 03/25/16 08:32 Dose: 1 patch Ondansetron HCl (Zofran) 4 mg IVP Q6HR PRN PRN Reason: Nausea And Vomiting Pantoprazole Sodium (Protonix) 40 mg PO AC-BRKFST [facility] Last Admin: 03/25/16 08:31 Dose: 40 mg Senna/Docusate Sodium (Senokot-S) 2 each PO HS [facility] Last Admin: 03/24/16 21:39 Dose: 2 each Plan: Status post CABG 2 day #2 Gentle diuresis Possibly discontinue mediastinal chest tubes today. Start oral pain meds for incisional discomfort. Continue aggressive pulmonary toilet utilizing incentive spirometry, coughing and deep breathing, and inhalation treatments per respiratory therapy. Discontinue Gonsales catheter Increase activity as tolerated <Zeb Buchanan - Last Filed: 03/25/16 12:46> Progress Note - Text The patient was seen and examined. I agree with the above assessment and plan. Overall he is doing well. We will remove his mediastinal chest tubes. His left pleural tube will likely be discontinued tomorrow. We'll also take out his arterial line and Gonsales catheter. He was given Lasix this morning. His pain is better controlled with Toradol. He still needs to cough and deep breathe. He was started on antibiotics by pulmonary this morning. His labs are otherwise normal. We will transfer him to [facility] when a bed is available.
[2016-03-25] MEDS ORDERED: FUROSEMIDE 10 MG/ML 2 ML VIAL IV ONE (10:52)
[2016-03-25] MEDS: HYDROcodone/APAP 5-325MG 1 EACH TAB PO PRN ×3 (10:58→15:03)
[2016-03-25 11:43] LABS: Glucose,Whole Blood 143 mg/dL (75-99)
--- NOTE | 2016-03-25 13:11 | P.PN ---
Subjective Principal diagnosis: Unstable angina History of present illness: This is a 75-year-old white male, heavy smoker, known history of diabetes, hypertension, dyslipidemia, patient presented on outpatient basis with precordial chest pain. His pain was moderate in intensity, and has been going on for about 4 weeks. His stress test revealed evidence of inferior wall myocardial infarction, and areas of estephanie-infarct ischemia. Echocardiogram showed inferior wall MS hence the patient underwent cardiac catheterization by Dr. Williamson, and he was found to have two-vessel disease. Dr. Farley was consulted for angioplasty, of the mid LAD lesion, attempt was made, but angioplasty could not be done. Patient was also found to have totally occluded RCA in the distal portion which was felt to be chronic and there was irregular ectatic changes with an area of 95% stenosed in its midportion and subtotal occlusion distally prior to the bifurcation into PDA and PLV. Considering the patient had failed attempted angioplasty of LAD, cardiac surgery is being consulted, and patient will likely undergo myocardial revascularization in the next couple of days. Going back to his pulmonary status, patient smoked since he was 17 years old, he smoked on average of one pack per day for so many years. However he denies symptoms of cough wheezing or shortness of breath on exertion. Patient was never diagnosed as having COPD, and never had a PFT on outpatient basis. Physically, the patient is quite active, he is able to climb 2 flights of stairs , able to walk a mile easily and does not have symptoms suggestive year COPD. Denies any headaches or blurred vision or dizziness. Denies any nausea vomiting abdominal pain. Denies shortness of breath as noted above. Denies any symptoms to suggest significant degenerative joint disease. Cardiac luque please refer to above. Patient was reevaluated today on 03/22/2016, he continues to do well, however on physical examination he was noted to have some wheezing hence I started the patient today on DuoNeb. Patient is scheduled to undergo myocardial revascularization tomorrow in a.m. CT of the chest was reviewed, bedside PFT is pending. Patient was reevaluated today on 03/24/2016, patient is status post CABG for 90 % stenosis of the midportion of the LAD and 95% stenosis of the midportion of the RCA. Patient is postoperative day #1, he was extubated last night uneventfully. Doing quite well, chest x-ray showed some minimal basilar atelectasis otherwise the patient's overall postoperative course seems uneventful. Labs were reviewed, CBC is relatively normal hemoglobin is 10.5 Reevaluated today on 03/25/2016, patient is doing well, he is postoperative day # 2, and overall the patient is doing well, chest x-ray shows some postoperative atelectasis, and suspicious for early infiltrate in the right midlung. patient is relatively asymptomatic. He does have some cough, the cough is productive with thick yellow phlegm. Considering the findings, I went ahead and started the patient on oral Levaquin. Sputum cultures were ordered and are pending. Labs were reviewed, CBC is relatively unremarkable hemoglobin is 8.6. Objective - Vital Signs Vital signs: Vital Signs Temp 98.2 F 03/25/16 09:00 Pulse 93 03/25/16 13:00 Resp 18 03/25/16 07:00 BP 113/57 03/25/16 13:00 Pulse Ox 97 03/25/16 13:00 Intake & Output 03/24/16 03/25/16 03/25/16 18:59 06:59 18:59 Intake Total 1644.532 936.233 668.915 Output Total 743 726 345 Balance 901.532 210.233 323.915 Intake: IV 720 600 300 ACETAMINOPHEN IV (For NPO 100 ) 1,000 mg In Empty Bag 1 bag @ 400 mls/hr IVPB Q6HR JG Rx#:[id number] CO/CI INTAKE 20 Lactated Ringers 1,000 ml 600 600 300 @ 50 mls/hr IV .Q20H JG Rx#:[id number] Intake, IV Titration 324.532 36.233 128.915 Amount Insulin Regular 100 unit 24.532 36.233 28.915 In Sodium Chloride 0.9% 100 ml @ Per Protocol IV .Q0M JG Rx#:[id number] Magnesium Sulfate-D5w Pmx 200 100 1 gm In Dextrose/Water 1 100ml.bag @ 100 mls/hr IVPB Q1H JG Rx#: [id number] ceFAZolin 2 gm In Sodium 100 Chloride 0.9% 100 ml @ 100 mls/hr IVPB Q8HR JG Rx#:[id number] Oral 600 300 240 Output: Chest Tube Drainage 318 270 170 Left Lateral Chest 68 150 40 Mediastinal 250 120 130 Drainage 45 Right Calf 45 Urine 425 411 175 Other: Voiding Method Indwelling Catheter Indwelling Catheter Indwelling Catheter ABP, PAP, CO, CI - Last Documented Arterial Blood Pressure 121/56 Pulmonary Artery Pressure 21/14 Cardiac Output 5.4 Cardiac Index 2.5 - Exam Physical Exam: Revealed a 75-year-old white male in no distress HEENT:[Neck is supple.] [No neck masses.] [No thyromegaly.] [No JVD.] Chest: [Relatively clear except for some wheezing on forced expiratory maneuver] Cardiac Exam: [Normal S1 and S2, no S3 gallop, no murmur.] Abdomen: [Soft, nontender, no megaly, no rebound, no guarding, normal bowel sounds.] Extremities: [No clubbing, no edema, no cyanosis.] Neurological Exam: [No focal neurologic deficit.] - Labs CBC & Chem 7: 03/25/16 05:15 03/25/16 05:15 Labs: Abnormal Lab Results - Last 24 Hours (Table) 03/23/16 03/23/16 03/23/16 Range/Units 08:52 10:14 11:22 RBC (4.30-5.90) m/uL Hgb (13.0-17.5) gm/dL Hct (39.0-53.0) % Plt Count (150-450) k/uL Neutrophils # (1.3-7.7) k/uL ABG pH 7.34 L (7.35-7.45) ABG pCO2 46 H (35-45) mmHg ABG pO2 169 H 139 H 140 H (83-108) mmHg ABG HCO3 26 H (21-25) mmol/L ABG Total CO2 27 H 26 H (19-24) mmol/L ABG O2 Saturation 99.5 H 99.0 H 99.0 H (94-97) % ABG Hematocrit 48 H (34.0-46.0) % ABG Potassium (3.4-4.5) mmol/L Sodium (137-145) mmol/L Creatinine (0.66-1.25) mg/dL Glucose (74-99) mg/dL POC Glucose (mg/dL) (75-99) mg/dL Calcium (8.4-10.2) mg/dL Total Bilirubin (0.2-1.3) mg/dL Total Protein (6.3-8.2) g/dL Albumin (3.5-5.0) g/dL Arterial Blood Potassium (3.4-4.5) mmol/L 03/23/16 03/23/16 03/23/16 Range/Units 12:20 12:52 13:28 RBC (4.30-5.90) m/uL Hgb (13.0-17.5) gm/dL Hct (39.0-53.0) % Plt Count (150-450) k/uL Neutrophils # (1.3-7.7) k/uL ABG pH (7.35-7.45) ABG pCO2 47 H (35-45) mmHg ABG pO2 273 H 232 H 338 H (83-108) mmHg ABG HCO3 28 H 26 H (21-25) mmol/L ABG Total CO2 29 H 27 H 26 H (19-24) mmol/L ABG O2 Saturation 99.9 H 99.8 H 99.9 H (94-97) % ABG Hematocrit 31 L 30 L 30 L (34.0-46.0) % ABG Potassium 4.6 H 4.7 H (3.4-4.5) mmol/L Sodium (137-145) mmol/L Creatinine (0.66-1.25) mg/dL Glucose (74-99) mg/dL POC Glucose (mg/dL) (75-99) mg/dL Calcium (8.4-10.2) mg/dL Total Bilirubin (0.2-1.3) mg/dL Total Protein (6.3-8.2) g/dL Albumin (3.5-5.0) g/dL Arterial Blood Potassium 4.6 H 4.7 H (3.4-4.5) mmol/L 03/23/16 03/24/16 03/24/16 Range/Units 14:36 14:46 16:20 RBC (4.30-5.90) m/uL Hgb (13.0-17.5) gm/dL Hct (39.0-53.0) % Plt Count (150-450) k/uL Neutrophils # (1.3-7.7) k/uL ABG pH (7.35-7.45) ABG pCO2 (35-45) mmHg ABG pO2 257 H (83-108) mmHg ABG HCO3 (21-25) mmol/L ABG Total CO2 25 H (19-24) mmol/L ABG O2 Saturation 99.9 H (94-97) % ABG Hematocrit (34.0-46.0) % ABG Potassium (3.4-4.5) mmol/L Sodium (137-145) mmol/L Creatinine (0.66-1.25) mg/dL Glucose (74-99) mg/dL POC Glucose (mg/dL) 141 H 130 H (75-99) mg/dL Calcium (8.4-10.2) mg/dL Total Bilirubin (0.2-1.3) mg/dL Total Protein (6.3-8.2) g/dL Albumin (3.5-5.0) g/dL Arterial Blood Potassium (3.4-4.5) mmol/L 03/24/16 03/24/16 03/24/16 Range/Units 17:21 19:03 20:31 RBC (4.30-5.90) m/uL Hgb (13.0-17.5) gm/dL Hct (39.0-53.0) % Plt Count (150-450) k/uL Neutrophils # (1.3-7.7) k/uL ABG pH (7.35-7.45) ABG pCO2 (35-45) mmHg ABG pO2 (83-108) mmHg ABG HCO3 (21-25) mmol/L ABG Total CO2 (19-24) mmol/L ABG O2 Saturation (94-97) % ABG Hematocrit (34.0-46.0) % ABG Potassium (3.4-4.5) mmol/L Sodium (137-145) mmol/L Creatinine (0.66-1.25) mg/dL Glucose (74-99) mg/dL POC Glucose (mg/dL) 133 H 167 H 148 H (75-99) mg/dL Calcium (8.4-10.2) mg/dL Total Bilirubin (0.2-1.3) mg/dL Total Protein (6.3-8.2) g/dL Albumin (3.5-5.0) g/dL Arterial Blood Potassium (3.4-4.5) mmol/L 03/24/16 03/24/16 03/25/16 Range/Units 21:22 23:16 00:15 RBC (4.30-5.90) m/uL Hgb (13.0-17.5) gm/dL Hct (39.0-53.0) % Plt Count (150-450) k/uL Neutrophils # (1.3-7.7) k/uL ABG pH (7.35-7.45) ABG pCO2 (35-45) mmHg ABG pO2 (83-108) mmHg ABG HCO3 (21-25) mmol/L ABG Total CO2 (19-24) mmol/L ABG O2 Saturation (94-97) % ABG Hematocrit (34.0-46.0) % ABG Potassium (3.4-4.5) mmol/L Sodium (137-145) mmol/L Creatinine (0.66-1.25) mg/dL Glucose (74-99) mg/dL POC Glucose (mg/dL) 128 H 129 H 129 H (75-99) mg/dL Calcium (8.4-10.2) mg/dL Total Bilirubin (0.2-1.3) mg/dL Total Protein (6.3-8.2) g/dL Albumin (3.5-5.0) g/dL Arterial Blood Potassium (3.4-4.5) mmol/L 03/25/16 03/25/16 03/25/16 Range/Units :19 02:20 04:11 RBC (4.30-5.90) m/uL Hgb (13.0-17.5) gm/dL Hct (39.0-53.0) % Plt Count (150-450) k/uL Neutrophils # (1.3-7.7) k/uL ABG pH (7.35-7.45) ABG pCO2 (35-45) mmHg ABG pO2 (83-108) mmHg ABG HCO3 (21-25) mmol/L ABG Total CO2 (19-24) mmol/L ABG O2 Saturation (94-97) % ABG Hematocrit (34.0-46.0) % ABG Potassium (3.4-4.5) mmol/L Sodium (137-145) mmol/L Creatinine (0.66-1.25) mg/dL Glucose (74-99) mg/dL POC Glucose (mg/dL) 122 H 102 H 109 H (75-99) mg/dL Calcium (8.4-10.2) mg/dL Total Bilirubin (0.2-1.3) mg/dL Total Protein (6.3-8.2) g/dL Albumin (3.5-5.0) g/dL Arterial Blood Potassium (3.4-4.5) mmol/L 03/25/16 03/25/16 03/25/16 Range/Units 05:15 05:15 05:15 RBC 2.92 L (4.30-5.90) m/uL Hgb 8.6 L D (13.0-17.5) gm/dL Hct 26.0 L (39.0-53.0) % Plt Count 90 L (150-450) k/uL Neutrophils # 8.8 H (1.3-7.7) k/uL ABG pH (7.35-7.45) ABG pCO2 (35-45) mmHg ABG pO2 (83-108) mmHg ABG HCO3 (21-25) mmol/L ABG Total CO2 (19-24) mmol/L ABG O2 Saturation (94-97) % ABG Hematocrit (34.0-46.0) % ABG Potassium (3.4-4.5) mmol/L Sodium 131 L (137-145) mmol/L Creatinine 0.60 L (0.66-1.25) mg/dL Glucose 110 H (74-99) mg/dL POC Glucose (mg/dL) 121 H (75-99) mg/dL Calcium 8.0 L (8.4-10.2) mg/dL Total Bilirubin 1.9 H (0.2-1.3) mg/dL Total Protein 4.5 L (6.3-8.2) g/dL Albumin 2.8 L (3.5-5.0) g/dL Arterial Blood Potassium (3.4-4.5) mmol/L 03/25/16 03/25/16 03/25/16 Range/Units 06:17 07:10 08:12 RBC (4.30-5.90) m/uL Hgb (13.0-17.5) gm/dL Hct (39.0-53.0) % Plt Count (150-450) k/uL Neutrophils # (1.3-7.7) k/uL ABG pH (7.35-7.45) ABG pCO2 (35-45) mmHg ABG pO2 (83-108) mmHg ABG HCO3 (21-25) mmol/L ABG Total CO2 (19-24) mmol/L ABG O2 Saturation (94-97) % ABG Hematocrit (34.0-46.0) % ABG Potassium (3.4-4.5) mmol/L Sodium (137-145) mmol/L Creatinine (0.66-1.25) mg/dL Glucose (74-99) mg/dL POC Glucose (mg/dL) 120 H 120 H 153 H (75-99) mg/dL Calcium (8.4-10.2) mg/dL Total Bilirubin (0.2-1.3) mg/dL Total Protein (6.3-8.2) g/dL Albumin (3.5-5.0) g/dL Arterial Blood Potassium (3.4-4.5) mmol/L 03/25/16 03/25/16 03/25/16 Range/Units 09:14 10:21 11:42 RBC (4.30-5.90) m/uL Hgb (13.0-17.5) gm/dL Hct (39.0-53.0) % Plt Count (150-450) k/uL Neutrophils # (1.3-7.7) k/uL ABG pH (7.35-7.45) ABG pCO2 (35-45) mmHg ABG pO2 (83-108) mmHg ABG HCO3 (21-25) mmol/L ABG Total CO2 (19-24) mmol/L ABG O2 Saturation (94-97) % ABG Hematocrit (34.0-46.0) % ABG Potassium (3.4-4.5) mmol/L Sodium (137-145) mmol/L Creatinine (0.66-1.25) mg/dL Glucose (74-99) mg/dL POC Glucose (mg/dL) 249 H 202 H 143 H (75-99) mg/dL Calcium (8.4-10.2) mg/dL Total Bilirubin (0.2-1.3) mg/dL Total Protein (6.3-8.2) g/dL Albumin (3.5-5.0) g/dL Arterial Blood Potassium (3.4-4.5) mmol/L Assessment and Plan Plan: #1 Coronary artery disease status post coronary artery bypass grafting utilizing a NAVARRO to the LAD and a saphenous vein graft to the PDA. Postoperative day #2 #2 patient was extubated a few hours after surgery, and he tolerated the extubation quite well. #3 Hypertension. #4 Hyperlipidemia. #5 Diabetes mellitus. #6 Suspect underlying chronic obstructive pulmonary disease. #7 abnormal chest x-ray suspicious of early infiltrate in the right midlung, hence patient will be started on Levaquin orally, sputum cultures are pending. Recommendation: Continue present treatment plan, continue bronchodilators, Symbicort was added. antibiotics, incentive spirometry, early ambulation, and we'll continue to follow. Time with Patient: Less than 30
[2016-03-25 13:13] LABS: Glucose,Whole Blood 116 mg/dL (75-99)
[2016-03-25] MEDS ORDERED: KETOROLAC 30 MG/ML 1 ML VIAL IVP PRN (16:59)
[2016-03-25 17:14] LABS: Glucose,Whole Blood 189 mg/dL (75-99)
[2016-03-25] MEDS ORDERED: INSULIN LISPRO (humaLOG) 300 UNIT/3 ML VIAL SQ SCH (17:30)
[2016-03-25 18:18] LABS: Glucose,Whole Blood 185 mg/dL (75-99)
[2016-03-25] MEDS ORDERED: INSULIN REGULAR BOLUS (FROM DRIP BAG) IV PRN (18:18)
[2016-03-25] MEDS ORDERED: INSULIN REGULAR 100 UNIT in SODIUM CHLORIDE 0.9% 100 ML IV SCH (18:30)
--- NOTE | 2016-03-25 18:39 | PN ---
This is a 75-year-old male patient who underwent coronary artery bypass grafting. He is doing well. He still complains of pain in the incision area, but it is better than yesterday. He is trying to use the incentive spirometer. He has no significant cough or phlegm. He is not short of breath. On examination, heart sounds are soft. Breath sounds are reduced bilaterally but with some rhonchi. Vitals are stable. Pulse rate is about 93 beats a minute. His blood pressure 110/60 mmHg. He is afebrile. Head and neck examination is normal. His central line has been removed. IMPRESSION: Coronary artery disease, status post coronary artery bypass grafting, doing well postoperatively. SUGGEST: Continue current medications and patient will be transferred to telemetry.
[2016-03-25 20:05] LABS: Glucose,Whole Blood 243 mg/dL (75-99)
[2016-03-25] MEDS: SYMBICORT 160-4.5 MCG INHALER INHALATION SCH (20:18)
[2016-03-25] MEDS: SENNOSIDES-DOCUSATE SODIUM 1 EACH TAB PO SCH (20:34)
[2016-03-25 21:44] LABS: Glucose,Whole Blood 203 mg/dL (75-99)
[2016-03-25 22:22] LABS: Glucose,Whole Blood 176 mg/dL (75-99)
[2016-03-25 23:22] LABS: Glucose,Whole Blood 168 mg/dL (75-99)
[2016-03-26 00:04] LABS: Glucose,Whole Blood 150 mg/dL (75-99)
[2016-03-26] MEDS: LACTATED RINGERS 1,000 ML IV SCH ×2 (00:04→23:46)
[2016-03-26 01:08] LABS: Glucose,Whole Blood 138 mg/dL (75-99)
[2016-03-26 02:26] LABS: Glucose,Whole Blood 131 mg/dL (75-99)
[2016-03-26] MEDS: HYDROcodone/APAP 5-325MG 1 EACH TAB PO PRN ×3 (03:16→17:30)
[2016-03-26 03:17] LABS: Glucose,Whole Blood 143 mg/dL (75-99)
[2016-03-26 04:21] LABS: Glucose,Whole Blood 150 mg/dL (75-99)
[2016-03-26 05:08] LABS: Glucose,Whole Blood 153 mg/dL (75-99)
[2016-03-26 05:35] LABS: Basophils % (A) 0 %; CH 29.7; CHCM 33.6; Eosinophils # (A) 0.1 k/uL (0-0.7); Eosinophils % (A) 1 %; HGB 8.9 gm/dL (13.0-17.5); Luc # (Auto) 0.12; Luc % (Auto) 1; Lymphocytes # (A) 0.9 k/uL (1.0-4.8); Lymphocytes % (A) 10 %; MCH 30.2 pg (25.0-35.0); MCHC 34.1 g/dL (31.0-37.0); MCV 88.6 fL (80.0-100.0); Mean Platelet Volume 6.9; Monocytes # (A) 0.6 k/uL (0-1.0); Monocytes % (A) 7 %; Neutrophils # (A) 7.6 k/uL (1.3-7.7); Neutrophils % (A) 82 %; RBC 2.94 m/uL (4.30-5.90); RDW 13.3 % (11.5-15.5); WBC 9.3 k/uL (3.8-10.6); WBC (Perox) 9.92
[2016-03-26 05:36] LABS: Ionized Calcium 4.7 mg/dL (4.5-5.3)
[2016-03-26 05:40] LABS: INR 1.1 (<1.1); Prothrombin Time 10.8 sec (9.0-12.0)
[2016-03-26 05:54] LABS: ALT 29 U/L (21-72); AST 31 U/L (17-59); Alkaline Phosphatase 49 U/L (38-126); Anion Gap 8 mmol/L; Blood Urea Nitrogen 17 mg/dL (9-20); Calcium 7.9 mg/dL (8.4-10.2); Carbon Dioxide 24 mmol/L (22-30); Chloride 99 mmol/L (98-107); Glucose 141 mg/dL (74-99); Non-African American GFR(MDRD) >60 (>60 ml/min/1.73 sqM); Sodium 131 mmol/L (137-145); Total Bilirubin 1.9 mg/dL (0.2-1.3); Total Protein 4.6 g/dL (6.3-8.2)
[2016-03-26 07:15] LABS: Glucose,Whole Blood 165 mg/dL (75-99)
[2016-03-26] MEDS: SYMBICORT 160-4.5 MCG INHALER INHALATION SCH ×2 (07:45→19:19)
[2016-03-26 08:00] LABS: Glucose,Whole Blood 135 mg/dL (75-99)
[2016-03-26] MEDS: MAGNESIUM SULFATE-D5W PMX 1 GM in DEXTROSE/WATER 1 100ML.BAG IVPB SCH ×2 (08:14→09:21)
[2016-03-26] MEDS: NICOTINE 21MG/24HR PATCH TRANSDERM SCH (08:15)
[2016-03-26] MEDS: HEPARIN SODIUM,PORCINE 5,000 UNIT/ML 1 ML VIAL SQ SCH ×3 (08:15→23:46)
[2016-03-26] MEDS: ASPIRIN 325 MG TAB PO SCH (08:15)
[2016-03-26] MEDS: ATORVASTATIN 40 MG TAB PO SCH (08:15)
[2016-03-26] MEDS: CLOPIDOGREL 75 MG TAB PO SCH (08:15)
[2016-03-26] MEDS: PANTOPRAZOLE 40 MG TABLET PO SCH (08:15)
[2016-03-26] MEDS: METOPROLOL TARTRATE 12.5 MG TAB PO SCH ×3 (08:15→21:23)
--- NOTE | 2016-03-26 08:15 | XR ---
EXAMINATION TYPE: XR chest 2V DATE OF EXAM: 03/26/2016 6:46 AM COMPARISON: 03/25/2016 INDICATION: Previous abnormal chest,, left-sided chest tube TECHNIQUE: Frontal and lateral views of the chest are obtained. FINDINGS: The heart size is normal. The pulmonary vasculature is normal. There is blunting of the right costophrenic angle. Minimal pleural effusion may have developed. Previ ous infiltrate in the right peripheral midlung has resolved. Left-sided chest tube remains in positio n. No pneumothorax is evident. Sheath is been removed on the right. A new sheath may be present on th e left. This could be an overlying catheter is well. Mediastinal tubes is not as well visualized and may have been removed. IMPRESSION: 1. Developing minimal right pleural effusion. 2. Stable left-sided chest tube
[2016-03-26] MEDS: MUPIROCIN 2% OINT 22 GM TUBE NASAL SCH ×2 (08:17→21:19)
[2016-03-26] MEDS ORDERED: POTASSIUM CHLORIDE ER 20 MEQ TAB.ER PO SCH (09:00)
[2016-03-26 09:28] LABS: Glucose,Whole Blood 185 mg/dL (75-99)
[2016-03-26] MEDS: LEVOFLOXACIN 500 MG TAB PO SCH (09:31)
[2016-03-26] MEDS: INSULN ASP PRT/INSULIN ASPART 100 UNIT/ML 10 ML VIAL SQ SCH (09:31)
[2016-03-26] MEDS: POTASSIUM CHLORIDE 10 MEQ in WATER FOR INJECTION 1 100ML.BAG IVPB SCH (10:18)
--- NOTE | 2016-03-26 10:30 | P.PN ---
<Mayito Hopkins - Last Filed: 03/26/16 10:21> Progress Note - Text CV Surgery Nursing POD: #3, coronary artery bypass grafts 2 with placement of a left internal mammary artery to left anterior descending artery and reverse saphenous vein graft to the posterior descending artery, endoscopic vein harvesting of the right greater saphenous vein. Intraoperative transesophageal echocardiogram and epi-aortic ultrasonography. Patient awake and alert, no distress noted, no specific complaints-patient states much better pain control today. Vital Signs: Afebrile, T-max is 98.3F Vital Signs - 24 hr 03/25/16 03/25/16 03/25/16 11:00 12:00 12:41 Temperature 98 F Pulse Rate 105 H 102 H Respiratory Rate Blood Pressure 95/55 113/57 O2 Sat by Pulse 97 100 100 Oximetry 03/25/16 03/25/16 03/25/16 13:00 14:00 16:00 Temperature Pulse Rate 93 103 H 104 H Respiratory 20 Rate Blood Pressure 113/57 107/59 110/60 O2 Sat by Pulse 97 98 98 Oximetry 03/25/16 03/25/16 03/25/16 18:00 19:00 20:00 Temperature 98.3 F 98.3 F Pulse Rate 106 H 107 H 104 H Respiratory 18 20 Rate Blood Pressure 109/56 102/54 106/60 O2 Sat by Pulse 97 79 L 90 L Oximetry 03/25/16 03/25/16 03/25/16 21:00 22:00 22:02 Temperature Pulse Rate 100 98 96 Respiratory 18 17 Rate Blood Pressure 104/52 97/53 97/53 O2 Sat by Pulse 96 97 97 Oximetry 03/25/16 03/26/16 03/26/16 23:00 00:00 01:00 Temperature 98.6 F Pulse Rate 95 98 93 Respiratory 18 Rate Blood Pressure 84/55 96/56 107/59 O2 Sat by Pulse 98 99 98 Oximetry 03/26/16 03/26/16 03/26/16 02:00 03:00 04:00 Temperature 98.3 F Pulse Rate 95 97 102 H Respiratory 17 Rate Blood Pressure 107/65 118/69 104/65 O2 Sat by Pulse 98 97 96 Oximetry 03/26/16 03/26/16 03/26/16 05:00 06:00 07:00 Temperature Pulse Rate 101 H 97 104 H Respiratory Rate Blood Pressure 104/65 95/56 97/63 O2 Sat by Pulse 96 100 96 Oximetry 03/26/16 03/26/16 08:00 10:00 Temperature 98.3 F Pulse Rate 105 H 92 Respiratory 18 18 Rate Blood Pressure 93/58 89/58 O2 Sat by Pulse 100 97 Oximetry Labs: Short CBC 03/26/16 Range/Units 05:05 WBC 9.3 (3.8-10.6) k/uL Hgb 8.9 L (13.0-17.5) gm/dL Hct 26.0 L (39.0-53.0) % Plt Count 114 L (150-450) k/uL Neutrophils # 7.6 (1.3-7.7) k/uL BMP 03/26/16 05:05 Sodium 131 L Potassium 4.0 Chloride 99 Carbon Dioxide 24 BUN 17 Creatinine 0.60 L Glucose 141 H Calcium 7.9 L Liver Function 03/26/16 Range/Units 05:05 Total Bilirubin 1.9 H (0.2-1.3) mg/dL AST 31 (17-59) U/L ALT 29 (21-72) U/L Alkaline Phosphatase 49 (38-126) U/L Albumin 2.6 L (3.5-5.0) g/dL IVs: Insulin drip at 4 units per hour Lungs: Respirations are even and nonlabored, breath sounds diminished bilaterally O2 sat: 97% on 3 L of oxygen delivered via nasal cannula I/S: 1250 mL, patient gave return demonstration of proper use the device after a small amount of reeducation Heart: S1S2, regular rate and rhythm, bedside telemetry shows sinus tachycardia in the low 100s Sternum stable, chest incision clean with silverlon dressing clean and dry. Abdomen: Soft, Positive bowel sounds present in all 4 quadrants. CBGs: 116-185 mg/dL U/O: Adequate urine output Chest Tubes: Left pleural chest tube without visible air leak, drained 190 mL of serosanguineous fluid over the last 8 hours. 24 hr Total: 290 mL Leg drain: With 40 mL of serosanguineous drainage over the last 12 hours. Plan: Status post CABG day #3 Wean insulin drip Transfer to stepdown Continue gentle diuresis Continue aggressive pulmonary toilet Continue to increase activity. <Zeb Buchanan - Last Filed: 03/26/16 13:28> Progress Note - Text The patient was seen and examined. I agree with the above assessment and plan. We will plan on removing his remaining chest tube tomorrow. He was given a dose of Lasix this morning and we will discontinue his Gonsales catheter. His blood pressure is running on the low side but he continues to receive low-dose Lopressor. He is doing well with incentive spirometry. We will continue to wean his oxygen. He needs to ambulate. He is awaiting transfer to [facility].
[2016-03-26] MEDS ORDERED: FUROSEMIDE 10 MG/ML 4 ML VIAL IV STA (11:53)
[2016-03-26 11:54] LABS: Glucose,Whole Blood 138 mg/dL (75-99)
--- NOTE | 2016-03-26 12:54 | P.PN ---
Subjective Principal diagnosis: Unstable angina History of present illness: This is a 75-year-old white male, heavy smoker, known history of diabetes, hypertension, dyslipidemia, patient presented on outpatient basis with precordial chest pain. His pain was moderate in intensity, and has been going on for about 4 weeks. His stress test revealed evidence of inferior wall myocardial infarction, and areas of estephanie-infarct ischemia. Echocardiogram showed inferior wall ME hence the patient underwent cardiac catheterization by Dr. Williamson, and he was found to have two-vessel disease. Dr. Farley was consulted for angioplasty, of the mid LAD lesion, attempt was made, but angioplasty could not be done. Patient was also found to have totally occluded RCA in the distal portion which was felt to be chronic and there was irregular ectatic changes with an area of 95% stenosed in its midportion and subtotal occlusion distally prior to the bifurcation into PDA and PLV. Considering the patient had failed attempted angioplasty of LAD, cardiac surgery is being consulted, and patient will likely undergo myocardial revascularization in the next couple of days. Going back to his pulmonary status, patient smoked since he was 17 years old, he smoked on average of one pack per day for so many years. However he denies symptoms of cough wheezing or shortness of breath on exertion. Patient was never diagnosed as having COPD, and never had a PFT on outpatient basis. Physically, the patient is quite active, he is able to climb 2 flights of stairs , able to walk a mile easily and does not have symptoms suggestive year COPD. Denies any headaches or blurred vision or dizziness. Denies any nausea vomiting abdominal pain. Denies shortness of breath as noted above. Denies any symptoms to suggest significant degenerative joint disease. Cardiac luque please refer to above. Patient was reevaluated today on 03/22/2016, he continues to do well, however on physical examination he was noted to have some wheezing hence I started the patient today on DuoNeb. Patient is scheduled to undergo myocardial revascularization tomorrow in a.m. CT of the chest was reviewed, bedside PFT is pending. Patient was reevaluated today on 03/24/2016, patient is status post CABG for 90 % stenosis of the midportion of the LAD and 95% stenosis of the midportion of the RCA. Patient is postoperative day #1, he was extubated last night uneventfully. Doing quite well, chest x-ray showed some minimal basilar atelectasis otherwise the patient's overall postoperative course seems uneventful. Labs were reviewed, CBC is relatively normal hemoglobin is 10.5 Reevaluated today on 03/25/2016, patient is doing well, he is postoperative day # 2, and overall the patient is doing well, chest x-ray shows some postoperative atelectasis, and suspicious for early infiltrate in the right midlung. patient is relatively asymptomatic. He does have some cough, the cough is productive with thick yellow phlegm. Considering the findings, I went ahead and started the patient on oral Levaquin. Sputum cultures were ordered and are pending. Labs were reviewed, CBC is relatively unremarkable hemoglobin is 8.6. Reevaluated today on 03/26/2016, patient is postoperative day #3. Continues to do well, relatively asymptomatic. No cough no wheezing no shortness of breath. Even his chest x-ray showed improvement in the suspected right middle lung infiltrate. Continues to have intermittent cough, cough is productive with yellow phlegm. Sputum cultures are pending. Objective - Vital Signs Vital signs: Vital Signs Temp 97.8 F 03/26/16 12:00 Pulse 90 03/26/16 12:00 Resp 20 03/26/16 12:00 BP 85/50 03/26/16 12:00 Pulse Ox 99 03/26/16 12:00 Intake & Output 03/25/16 03/26/16 03/26/16 18:59 06:59 18:59 Intake Total 8803.460 5483.157 364.572 Output Total 1170 1035 240 Balance 45.876 26.157 124.572 Weight 100.1 kg Intake: IV 600 600 250 Lactated Ringers 1,000 ml 600 600 250 @ 50 mls/hr IV .Q20H [facility] Rx#:[id number] Intake, IV Titration 135.876 21.157 114.572 Amount Insulin Regular 100 unit 35.876 In Sodium Chloride 0.9% 100 ml @ Per Protocol IV .Q0M [facility] Rx#:[id number] Insulin Regular 100 unit 21.157 14.572 In Sodium Chloride 0.9% 100 ml @ Per Protocol IV .Q0M [facility] Rx#:[id number] Magnesium Sulfate-D5w Pmx 100 1 gm In Dextrose/Water 1 100ml.bag @ 100 mls/hr IVPB Q1H [facility] Rx#: [id number] Magnesium Sulfate-D5w Pmx 100 1 gm In Dextrose/Water 1 100ml.bag @ 100 mls/hr IVPB Q1H [facility] Rx#: [id number] Oral 480 440 Output: Chest Tube Drainage 210 210 70 Left Lateral Chest 80 210 70 Mediastinal 130 Drainage 25 90 Right Calf 25 90 Urine 935 825 80 Other: Voiding Method Indwelling Catheter Indwelling Catheter Urinal ABP, PAP, CO, CI - Last Documented Arterial Blood Pressure 131/60 Pulmonary Artery Pressure 21/14 Cardiac Output 5.4 Cardiac Index 2.5 - Exam Physical Exam: Revealed a 75-year-old white male in no distress HEENT:[Neck is supple.] [No neck masses.] [No thyromegaly.] [No JVD.] Chest: [Relatively clear except for some wheezing on forced expiratory maneuver] Cardiac Exam: [Normal S1 and S2, no S3 gallop, no murmur.] Abdomen: [Soft, nontender, no megaly, no rebound, no guarding, normal bowel sounds.] Extremities: [No clubbing, no edema, no cyanosis.] Neurological Exam: [No focal neurologic deficit.] - Labs CBC & Chem 7: 03/26/16 05:05 03/26/16 05:05 Labs: Abnormal Lab Results - Last 24 Hours (Table) 03/25/16 03/25/16 03/25/16 Range/Units 13:12 17:11 18:16 RBC (4.30-5.90) m/uL Hgb (13.0-17.5) gm/dL Hct (39.0-53.0) % Plt Count (150-450) k/uL Lymphocytes # (1.0-4.8) k/uL Sodium (137-145) mmol/L Creatinine (0.66-1.25) mg/dL Glucose (74-99) mg/dL POC Glucose (mg/dL) 116 H 189 H 185 H (75-99) mg/dL Calcium (8.4-10.2) mg/dL Total Bilirubin (0.2-1.3) mg/dL Total Protein (6.3-8.2) g/dL Albumin (3.5-5.0) g/dL 03/25/16 03/25/16 03/25/16 Range/Units 20:01 21:40 22:20 RBC (4.30-5.90) m/uL Hgb (13.0-17.5) gm/dL Hct (39.0-53.0) % Plt Count (150-450) k/uL Lymphocytes # (1.0-4.8) k/uL Sodium (137-145) mmol/L Creatinine (0.66-1.25) mg/dL Glucose (74-99) mg/dL POC Glucose (mg/dL) 243 H 203 H 176 H (75-99) mg/dL Calcium (8.4-10.2) mg/dL Total Bilirubin (0.2-1.3) mg/dL Total Protein (6.3-8.2) g/dL Albumin (3.5-5.0) g/dL 03/25/16 03/26/16 03/26/16 Range/Units 23:19 00:00 01:06 RBC (4.30-5.90) m/uL Hgb (13.0-17.5) gm/dL Hct (39.0-53.0) % Plt Count (150-450) k/uL Lymphocytes # (1.0-4.8) k/uL Sodium (137-145) mmol/L Creatinine (0.66-1.25) mg/dL Glucose (74-99) mg/dL POC Glucose (mg/dL) 168 H 150 H 138 H (75-99) mg/dL Calcium (8.4-10.2) mg/dL Total Bilirubin (0.2-1.3) mg/dL Total Protein (6.3-8.2) g/dL Albumin (3.5-5.0) g/dL 03/26/16 03/26/16 03/26/16 Range/Units 02:25 03:10 04:19 RBC (4.30-5.90) m/uL Hgb (13.0-17.5) gm/dL Hct (39.0-53.0) % Plt Count (150-450) k/uL Lymphocytes # (1.0-4.8) k/uL Sodium (137-145) mmol/L Creatinine (0.66-1.25) mg/dL Glucose (74-99) mg/dL POC Glucose (mg/dL) 131 H 143 H 150 H (75-99) mg/dL Calcium (8.4-10.2) mg/dL Total Bilirubin (0.2-1.3) mg/dL Total Protein (6.3-8.2) g/dL Albumin (3.5-5.0) g/dL 03/26/16 03/26/16 03/26/16 Range/Units 05:05 05:05 05:06 RBC 2.94 L (4.30-5.90) m/uL Hgb 8.9 L (13.0-17.5) gm/dL Hct 26.0 L (39.0-53.0) % Plt Count 114 L (150-450) k/uL Lymphocytes # 0.9 L (1.0-4.8) k/uL Sodium 131 L (137-145) mmol/L Creatinine 0.60 L (0.66-1.25) mg/dL Glucose 141 H (74-99) mg/dL POC Glucose (mg/dL) 153 H (75-99) mg/dL Calcium 7.9 L (8.4-10.2) mg/dL Total Bilirubin 1.9 H (0.2-1.3) mg/dL Total Protein 4.6 L (6.3-8.2) g/dL Albumin 2.6 L (3.5-5.0) g/dL 03/26/16 03/26/16 03/26/16 Range/Units 07:11 07:59 09:26 RBC (4.30-5.90) m/uL Hgb (13.0-17.5) gm/dL Hct (39.0-53.0) % Plt Count (150-450) k/uL Lymphocytes # (1.0-4.8) k/uL Sodium (137-145) mmol/L Creatinine (0.66-1.25) mg/dL Glucose (74-99) mg/dL POC Glucose (mg/dL) 165 H 135 H 185 H (75-99) mg/dL Calcium (8.4-10.2) mg/dL Total Bilirubin (0.2-1.3) mg/dL Total Protein (6.3-8.2) g/dL Albumin (3.5-5.0) g/dL 03/26/16 Range/Units 11:52 RBC (4.30-5.90) m/uL Hgb (13.0-17.5) gm/dL Hct (39.0-53.0) % Plt Count (150-450) k/uL Lymphocytes # (1.0-4.8) k/uL Sodium (137-145) mmol/L Creatinine (0.66-1.25) mg/dL Glucose (74-99) mg/dL POC Glucose (mg/dL) 138 H (75-99) mg/dL Calcium (8.4-10.2) mg/dL Total Bilirubin (0.2-1.3) mg/dL Total Protein (6.3-8.2) g/dL Albumin (3.5-5.0) g/dL Microbiology - Last 24 Hours (Table) 03/25/16 12:00 Gram Stain - Preliminary Sputum Assessment and Plan Plan: #1 Coronary artery disease status post coronary artery bypass grafting utilizing a NAVARRO to the LAD and a saphenous vein graft to the PDA. Postoperative day #3 #2 patient was extubated a few hours after surgery, and he tolerated the extubation quite well. #3 Hypertension. #4 Hyperlipidemia. #5 Diabetes mellitus. #6 Suspect underlying chronic obstructive pulmonary disease. #7 abnormal chest x-ray suspicious of early infiltrate in the right midlung, but follow-up chest x-ray on 03/26/2016 seems to be improved. Patient will remain on Levaquin in the meantime empirically. Recommendation: Continue present treatment plan, continue bronchodilators, Symbicort was added. antibiotics, incentive spirometry, early ambulation, and we'll continue to follow. Consider transferring the patient out of the ICU to a cardiac floor. Time with Patient: Less than 30
[2016-03-26] MEDS: INSULIN LISPRO (humaLOG) 300 UNIT/3 ML VIAL SQ SCH ×4 (13:01→21:17)
[2016-03-26 17:15] LABS: Glucose,Whole Blood 110 mg/dL (75-99)
--- NOTE | 2016-03-26 18:15 | P.PN ---
Subjective Patient is improving slowly. He still complains of incisional pain. Less short of breath today no dizziness or lightheadedness Blood pressure 112/59 mmHg pulse rate between 90-104 beats a minute Breath sounds are reduced bilaterally Heart sounds are soft Abdomen is soft 70s are warm no edema Impression Coronary artery disease status post coronary artery bypass grafting Plan Continue antiplatelet therapy continue statins and beta blockers Objective - Vital Signs Vital signs: Vital Signs Temp 98.2 F 03/26/16 16:00 Pulse 104 H 03/26/16 16:00 Resp 16 03/26/16 16:00 BP 112/59 03/26/16 16:00 Pulse Ox 99 03/26/16 16:00 Intake & Output 03/25/16 03/26/16 03/26/16 18:59 06:59 18:59 Intake Total 0566.940 8929.157 854.572 Output Total 1170 1035 1480 Balance 45.876 26.157 -625.428 Weight 100.1 kg Intake: IV 600 600 500 Lactated Ringers 1,000 ml 600 600 500 @ 50 mls/hr IV .Q20H [facility] Rx#:[id number] Intake, IV Titration 135.876 21.157 114.572 Amount Insulin Regular 100 unit 35.876 In Sodium Chloride 0.9% 100 ml @ Per Protocol IV .Q0M [facility] Rx#:[id number] Insulin Regular 100 unit 21.157 14.572 In Sodium Chloride 0.9% 100 ml @ Per Protocol IV .Q0M [facility] Rx#:[id number] Magnesium Sulfate-D5w Pmx 100 1 gm In Dextrose/Water 1 100ml.bag @ 100 mls/hr IVPB Q1H [facility] Rx#: [id number] Magnesium Sulfate-D5w Pmx 100 1 gm In Dextrose/Water 1 100ml.bag @ 100 mls/hr IVPB Q1H [facility] Rx#: [id number] Oral 480 440 240 Output: Chest Tube Drainage 210 210 170 Left Lateral Chest 80 210 170 Mediastinal 130 Drainage 25 155 Right Calf 25 155 Urine 957 290 8766 Other: Voiding Method Indwelling Catheter Indwelling Catheter Urinal # Voids 1 ABP, PAP, CO, CI - Last Documented Arterial Blood Pressure 131/60 Pulmonary Artery Pressure 14 Cardiac Output 5.4 Cardiac Index 2.5 - Labs CBC & Chem 7: 03/26/16 05:05 03/26/16 05:05 Labs: Abnormal Lab Results - Last 24 Hours (Table) 03/25/16 03/25/16 03/25/16 Range/Units 18:16 20:01 21:40 RBC (4.30-5.90) m/uL Hgb (13.0-17.5) gm/dL Hct (39.0-53.0) % Plt Count (150-450) k/uL Lymphocytes # (1.0-4.8) k/uL Sodium (137-145) mmol/L Creatinine (0.66-1.25) mg/dL Glucose (74-99) mg/dL POC Glucose (mg/dL) 185 H 243 H 203 H (75-99) mg/dL Calcium (8.4-10.2) mg/dL Total Bilirubin (0.2-1.3) mg/dL Total Protein (6.3-8.2) g/dL Albumin (3.5-5.0) g/dL 03/25/16 03/25/16 03/26/16 Range/Units 22:20 23:19 00:00 RBC (4.30-5.90) m/uL Hgb (13.0-17.5) gm/dL Hct (39.0-53.0) % Plt Count (150-450) k/uL Lymphocytes # (1.0-4.8) k/uL Sodium (137-145) mmol/L Creatinine (0.66-1.25) mg/dL Glucose (74-99) mg/dL POC Glucose (mg/dL) 176 H 168 H 150 H (75-99) mg/dL Calcium (8.4-10.2) mg/dL Total Bilirubin (0.2-1.3) mg/dL Total Protein (6.3-8.2) g/dL Albumin (3.5-5.0) g/dL 03/26/16 03/26/16 03/26/16 Range/Units 01:06 02:25 03:10 RBC (4.30-5.90) m/uL Hgb (13.0-17.5) gm/dL Hct (39.0-53.0) % Plt Count (150-450) k/uL Lymphocytes # (1.0-4.8) k/uL Sodium (137-145) mmol/L Creatinine (0.66-1.25) mg/dL Glucose (74-99) mg/dL POC Glucose (mg/dL) 138 H 131 H 143 H (75-99) mg/dL Calcium (8.4-10.2) mg/dL Total Bilirubin (0.2-1.3) mg/dL Total Protein (6.3-8.2) g/dL Albumin (3.5-5.0) g/dL 03/26/16 03/26/16 03/26/16 Range/Units 04:19 05:05 05:05 RBC 2.94 L (4.30-5.90) m/uL Hgb 8.9 L (13.0-17.5) gm/dL Hct 26.0 L (39.0-53.0) % Plt Count 114 L (150-450) k/uL Lymphocytes # 0.9 L (1.0-4.8) k/uL Sodium 131 L (137-145) mmol/L Creatinine 0.60 L (0.66-1.25) mg/dL Glucose 141 H (74-99) mg/dL POC Glucose (mg/dL) 150 H (75-99) mg/dL Calcium 7.9 L (8.4-10.2) mg/dL Total Bilirubin 1.9 H (0.2-1.3) mg/dL Total Protein 4.6 L (6.3-8.2) g/dL Albumin 2.6 L (3.5-5.0) g/dL 03/26/16 03/26/16 03/26/16 Range/Units 05:06 07:11 07:59 RBC (4.30-5.90) m/uL Hgb (13.0-17.5) gm/dL Hct (39.0-53.0) % Plt Count (150-450) k/uL Lymphocytes # (1.0-4.8) k/uL Sodium (137-145) mmol/L Creatinine (0.66-1.25) mg/dL Glucose (74-99) mg/dL POC Glucose (mg/dL) 153 H 165 H 135 H (75-99) mg/dL Calcium (8.4-10.2) mg/dL Total Bilirubin (0.2-1.3) mg/dL Total Protein (6.3-8.2) g/dL Albumin (3.5-5.0) g/dL 03/26/16 03/26/16 03/26/16 Range/Units 09:26 11:52 17:14 RBC (4.30-5.90) m/uL Hgb (13.0-17.5) gm/dL Hct (39.0-53.0) % Plt Count (150-450) k/uL Lymphocytes # (1.0-4.8) k/uL Sodium (137-145) mmol/L Creatinine (0.66-1.25) mg/dL Glucose (74-99) mg/dL POC Glucose (mg/dL) 185 H 138 H 110 H (75-99) mg/dL Calcium (8.4-10.2) mg/dL Total Bilirubin (0.2-1.3) mg/dL Total Protein (6.3-8.2) g/dL Albumin (3.5-5.0) g/dL Microbiology - Last 24 Hours (Table) 03/25/16 12:00 Gram Stain - Preliminary Sputum
[2016-03-26] MEDS ORDERED: INSULIN NPH 300 UNIT/3 ML VIAL SQ SCH (21:00)
[2016-03-26 21:19] LABS: Glucose,Whole Blood 97 mg/dL (75-99)
[2016-03-26] MEDS: SENNOSIDES-DOCUSATE SODIUM 1 EACH TAB PO SCH (21:23)
[2016-03-27] MEDS: HYDROcodone/APAP 5-325MG 1 EACH TAB PO PRN ×3 (01:48→17:38)
[2016-03-27 02:01] LABS: Glucose,Whole Blood 117 mg/dL (75-99)
[2016-03-27 04:41] LABS: Basophils % (A) 0 %; CH 29.5; CHCM 33.1; Eosinophils # (A) 0.1 k/uL (0-0.7); Eosinophils % (A) 2 %; HCT 26.6 % (39.0-53.0); HDW 2.45; HGB 8.9 gm/dL (13.0-17.5); Luc # (Auto) 0.14; Luc % (Auto) 2; Lymphocytes % (A) 16 %; MCH 29.8 pg (25.0-35.0); MCHC 33.3 g/dL (31.0-37.0); MCV 89.5 fL (80.0-100.0); Mean Platelet Volume 7.5; Monocytes # (A) 0.6 k/uL (0-1.0); Monocytes % (A) 9 %; Neutrophils # (A) 4.6 k/uL (1.3-7.7); Neutrophils % (A) 71 %; RBC 2.97 m/uL (4.30-5.90); RDW 13.4 % (11.5-15.5); WBC 6.4 k/uL (3.8-10.6); WBC (Perox) 6.55
[2016-03-27 04:47] LABS: Prothrombin Time 10.2 sec (9.0-12.0)
[2016-03-27 05:03] LABS: Ionized Calcium 4.5 mg/dL (4.5-5.3)
[2016-03-27 05:12] LABS: ALT 39 U/L (21-72); AST 26 U/L (17-59); Alkaline Phosphatase 48 U/L (38-126); Anion Gap 9 mmol/L; Blood Urea Nitrogen 13 mg/dL (9-20); Calcium 7.9 mg/dL (8.4-10.2); Carbon Dioxide 25 mmol/L (22-30); Chloride 99 mmol/L (98-107); Glucose 157 mg/dL (74-99); Magnesium 1.8 mg/dL (1.6-2.3); Non-African American GFR(MDRD) >60 (>60 ml/min/1.73 sqM); Potassium 3.9 mmol/L (3.5-5.1); Sodium 133 mmol/L (137-145); Total Bilirubin 1.6 mg/dL (0.2-1.3)
[2016-03-27] MEDS: INSULIN LISPRO (humaLOG) 300 UNIT/3 ML VIAL SQ SCH ×6 (06:50→21:40)
--- NOTE | 2016-03-27 06:54 | XR ---
EXAMINATION TYPE: XR chest 1V portable DATE OF EXAM: 03/27/2016 6:43 AM COMPARISON: 03/26/2016 HISTORY: Chest tube/post CABG TECHNIQUE: Single frontal view of the chest is obtained. Portable study upright 03/27/2016, 6:26 AM pamela millan. FINDINGS: Postsurgical changes of CABG, sternotomy are noted. Sternal sutures are noted. An artifact is noted s uperimposing the upper chest. There is suggestion of minimal bilateral pleural effusions. Mild pulmonary vascular congestion. There is evidence of a left-sided chest tube in place. No significant pneumothorax is noted bilaterally. There is mild cardiomegaly. Thoracic cage intact. IMPRESSION: 1. Mild bilateral pleural effusions. 2. Left-sided chest tube is noted in place. 3. No pneumothorax. 4. Mild pulmonary vascular congestion. 5. Cardiomegaly and sternotomy.
[2016-03-27] MEDS ORDERED: POTASSIUM CHLORIDE ER 20 MEQ TAB.ER PO SCH (07:00)
[2016-03-27] MEDS: SYMBICORT 160-4.5 MCG INHALER INHALATION SCH ×2 (07:44→19:52)
[2016-03-27 07:56] LABS: Glucose,Whole Blood 177 mg/dL (75-99)
[2016-03-27] MEDS: INSULN ASP PRT/INSULIN ASPART 100 UNIT/ML 10 ML VIAL SQ SCH (07:59)
[2016-03-27] MEDS: MAGNESIUM SULFATE-D5W PMX 1 GM in DEXTROSE/WATER 1 100ML.BAG IVPB SCH ×2 (08:00→09:03)
[2016-03-27] MEDS: NICOTINE 21MG/24HR PATCH TRANSDERM SCH (08:09)
[2016-03-27] MEDS: PANTOPRAZOLE 40 MG TABLET PO SCH (08:09)
[2016-03-27] MEDS: ASPIRIN 325 MG TAB PO SCH (08:09)
[2016-03-27] MEDS: HEPARIN SODIUM,PORCINE 5,000 UNIT/ML 1 ML VIAL SQ SCH ×2 (08:09→17:05)
[2016-03-27] MEDS: METOPROLOL TARTRATE 12.5 MG TAB PO SCH ×3 (08:09→21:41)
[2016-03-27] MEDS: CLOPIDOGREL 75 MG TAB PO SCH (08:09)
[2016-03-27] MEDS: ATORVASTATIN 40 MG TAB PO SCH (08:11)
--- NOTE | 2016-03-27 08:56 | P.PN ---
Subjective Principal diagnosis: Coronary artery disease This is a 75-year-old gentleman who was found to have coronary artery disease during a heart catheterization performed on 03/21/2016. He had 90% stenosis of the midportion of the LAD and a 95% stenosis in the midportion of the right coronary artery. He is now status post coronary artery bypass grafting utilizing a NAVARRO to the LAD and a saphenous vein graft to the PDA. This is postoperative day #4. He is seen again today in follow-up. He is awake and alert in no acute distress. He is currently sitting up in the chair at the bedside. He denies any worsening shortness of breath, cough or congestion. He is pulling approximately 1250 MLS on the incentive spirometer. His chest x-ray reveals small bilateral pleural effusions. Left-sided chest tube remains in place. No pneumothorax. He has been having complaints of left-sided anterior chest wall and shoulder pain which has been controlled with [place]. He is back in atrial fibrillation this morning. Objective - Vital Signs Vital signs: Vital Signs Temp 97.9 F 03/27/16 08:04 Pulse 101 H 03/27/16 08:04 Resp 18 03/27/16 08:04 BP 117/62 03/27/16 08:04 Pulse Ox 98 03/27/16 08:04 Intake & Output 03/26/16 03/27/16 03/27/16 18:59 06:59 18:59 Intake Total 904.572 600 200 Output Total 1480 550 85 Balance -575.428 50 115 Weight 101.2 kg Intake: IV 550 600 100 Lactated Ringers 1,000 ml 550 600 100 @ 50 mls/hr IV .Q20H [facility] Rx#:[id number] Intake, IV Titration 114.572 100 Amount Insulin Regular 100 unit 14.572 In Sodium Chloride 0.9% 100 ml @ Per Protocol IV .Q0M [facility] Rx#:[id number] Magnesium Sulfate-D5w Pmx 100 1 gm In Dextrose/Water 1 100ml.bag @ 100 mls/hr IVPB Q1H [facility] Rx#: [id number] Magnesium Sulfate-D5w Pmx 100 1 gm In Dextrose/Water 1 100ml.bag @ 100 mls/hr IVPB Q1H [facility] Rx#: [id number] Oral 240 Output: Chest Tube Drainage 170 170 60 Left Lateral Chest 170 170 60 Drainage 155 105 25 Right Calf 155 105 25 Urine 1155 275 Other: Voiding Method Urinal Urinal Urinal # Voids 1 1 # Bowel Movements 1 ABP, PAP, CO, CI - Last Documented Arterial Blood Pressure 131/60 Pulmonary Artery Pressure 21/14 Cardiac Output 5.4 Cardiac Index 2.5 - Exam GENERAL EXAM: Alert and oriented. No acute distress. HEAD: Normocephalic. EYES: Sluggish reaction of pupils, equal size. NOSE: Clear with pink turbinates. THROAT: No erythema or exudates. NECK: No masses, no JVD. CHEST: Sternal dressing is dry and intact. Left-sided chest tube remains in place. LUNGS: Equal air entry with no khanh crackles in the posterior bases. CVS: S1 and S2 normal with no audible murmurs, irregular rhythm. ABDOMEN: Soft and nontender. Bowel sounds are present. Extremities: There is trace peripheral edema to the bilateral lower extremities. Peripheral pulses are intact. No clubbing, no cyanosis. - Labs CBC & Chem 7: 03/27/16 04:29 03/27/16 04:29 Labs: Abnormal Lab Results - Last 24 Hours (Table) 03/26/16 03/26/16 03/26/16 Range/Units 09:26 11:52 17:14 RBC (4.30-5.90) m/uL Hgb (13.0-17.5) gm/dL Hct (39.0-53.0) % Sodium (137-145) mmol/L Creatinine (0.66-1.25) mg/dL Glucose (74-99) mg/dL POC Glucose (mg/dL) 185 H 138 H 110 H (75-99) mg/dL Calcium (8.4-10.2) mg/dL Total Bilirubin (0.2-1.3) mg/dL Total Protein (6.3-8.2) g/dL Albumin (3.5-5.0) g/dL 03/27/16 03/27/16 03/27/16 Range/Units 01:59 04:29 04:29 RBC 2.97 L (4.30-5.90) m/uL Hgb 8.9 L (13.0-17.5) gm/dL Hct 26.6 L (39.0-53.0) % Sodium 133 L (137-145) mmol/L Creatinine 0.65 L (0.66-1.25) mg/dL Glucose 157 H (74-99) mg/dL POC Glucose (mg/dL) 117 H (75-99) mg/dL Calcium 7.9 L (8.4-10.2) mg/dL Total Bilirubin 1.6 H (0.2-1.3) mg/dL Total Protein 5.0 L (6.3-8.2) g/dL Albumin 2.8 L (3.5-5.0) g/dL 03/27/16 Range/Units 07:53 RBC (4.30-5.90) m/uL Hgb (13.0-17.5) gm/dL Hct (39.0-53.0) % Sodium (137-145) mmol/L Creatinine (0.66-1.25) mg/dL Glucose (74-99) mg/dL POC Glucose (mg/dL) 177 H (75-99) mg/dL Calcium (8.4-10.2) mg/dL Total Bilirubin (0.2-1.3) mg/dL Total Protein (6.3-8.2) g/dL Albumin (3.5-5.0) g/dL Microbiology - Last 24 Hours (Table) 03/25/16 12:00 Gram Stain - Preliminary Sputum Assessment and Plan Plan: Impression: #1 Coronary artery disease status post coronary artery bypass grafting utilizing a NAVARRO to the LAD and a saphenous vein graft to the PDA. Postoperative day #4. 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 Recovered. #3 Hypertension. #4 Hyperlipidemia. #5 Diabetes mellitus. #6 Suspect underlying chronic obstructive pulmonary disease secondary to chronic and ongoing tobacco dependence. #7 Paroxysmal atrial fibrillation. Plan: The patient was seen and evaluated by Dr. Garcia. His chest x-ray and labs were reviewed. He remains on bronchodilators and Symbicort. He is on empiric antibiotics in the form of Levaquin. We will encourage the increased use of the incentive spirometer and cough and deep breathing exercises. He is encouraged regarding the importance of complete smoking cessation. A NicoDerm patch remains in place. He is on heparin for DVT prophylaxis and Protonix for GI prophylaxis. We'll repeat the chest x-ray in the a.m. We'll increase his activity as tolerated. We'll continue to follow make further recommendations based on his clinical status.
[2016-03-27] MEDS ORDERED: FUROSEMIDE 10 MG/ML 4 ML VIAL IV STA (09:14)
[2016-03-27] MEDS ORDERED: DEXTROSE 5% IN WATER 100 ML with AMIODARONE 150 MG IV ONE ×2 (09:32→11:53)
[2016-03-27] MEDS: AMIODARONE 450 MG in DEXTROSE 5% IN WATER 250 ML IV SCH ×4 (09:59→17:06)
[2016-03-27] MEDS: LEVOFLOXACIN 500 MG TAB PO SCH (10:06)
[2016-03-27 12:34] LABS: Glucose,Whole Blood 229 mg/dL (75-99)
[2016-03-27] MEDS: LACTATED RINGERS 1,000 ML IV SCH ×2 (12:51→16:09)
--- NOTE | 2016-03-27 13:52 | P.PN ---
Subjective Principal diagnosis: Coronary artery disease requiring coronary artery bypass grafting. Postop day #4 urgent coronary artery bypass grafting 2, with placement of the left internal mammary artery to the mid left anterior descending artery, reverse greater saphenous vein graft placed to the posterior descending coronary artery. Endoscopic vein harvesting of the right greater saphenous vein. Intraoperative transesophageal echocardiogram and epi-aortic scanning. Patient currently sitting up in chair in no apparent distress. Denies any complaints. He wants to get back in bed. Objective - Vital Signs Vital signs: Vital Signs Temp 97.9 F 03/27/16 08:04 Pulse 101 H 03/27/16 08:04 Resp 18 03/27/16 08:04 BP 117/62 03/27/16 08:04 Pulse Ox 98 03/27/16 08:04 Intake & Output 03/26/16 03/27/16 03/27/16 18:59 06:59 18:59 Intake Total 904.572 600 200 Output Total 1480 550 85 Balance -575.428 50 115 Weight 101.2 kg Intake: IV 550 600 100 Lactated Ringers 1,000 ml 550 600 100 @ 50 mls/hr IV .Q20H JG Rx#:[id number] Intake, IV Titration 114.572 100 Amount Insulin Regular 100 unit 14.572 In Sodium Chloride 0.9% 100 ml @ Per Protocol IV .Q0M JG Rx#:[id number] Magnesium Sulfate-D5w Pmx 100 1 gm In Dextrose/Water 1 100ml.bag @ 100 mls/hr IVPB Q1H JG Rx#: [id number] Magnesium Sulfate-D5w Pmx 100 1 gm In Dextrose/Water 1 100ml.bag @ 100 mls/hr IVPB Q1H JG Rx#: [id number] Oral 240 Output: Chest Tube Drainage 170 170 60 Left Lateral Chest 170 170 60 Drainage 155 105 25 Right Calf 155 105 25 Urine 1155 275 Other: Voiding Method Urinal Urinal # Voids 1 1 # Bowel Movements 1 ABP, PAP, CO, CI - Last Documented Arterial Blood Pressure 131/60 Pulmonary Artery Pressure 21/14 Cardiac Output 5.4 Cardiac Index 2.5 - Constitutional General appearance: Present: cooperative, no acute distress - Respiratory Details: Lungs sounds diminished bilaterally. Respirations even, nonlabored. Remains on 3 L nasal cannula. Able to achieve 1000 mL on incentive spirometry. Left pleural chest tube present, draining serosanguineous fluid, connected to -20 cm wall suction, 400 mL output in the last 24 hours, no air leak present. - Cardiovascular Details: S1, S2 present. No murmurs rubs or gallops. Regular rate and rhythm, sinus rhythm to sinus tach on telemetry. Chest stable. Heart hugger in place with patient demonstrating appropriate use. Trace bilateral lower extremity edema present. Palpable radial, DP, PT pulses. Teds, SCDs in place. - Gastrointestinal Gastrointestinal Comment(s): Abdomen soft, nontender, nondistended. Active bowel sounds 4 quadrants. Positive bowel movement yesterday. Tolerating diet. - Genitourinary Genitourinary Comment(s): Voiding clear, yellow urine per urinal. - Integumentary Integumentary Comment(s): Skin warm, dry. Anterior chest incision covered with dry intact silver dressing. Right EVH site with DAMION to suction, draining serosanguineous fluid, total 60 mL output last 12 hours. - Neurologic Neurologic: Present: CNII-XII intact - Musculoskeletal Musculoskeletal Comment(s): Ambulating with minimal assist. - Psychiatric Psychiatric: Present: A&O x's 3, appropriate affect, intact judgment & insight - Allied health notes Allied health notes reviewed: PT - Labs CBC & Chem 7: 03/27/16 04:29 03/27/16 04:29 Labs: Abnormal Lab Results - Last 24 Hours (Table) 03/26/16 03/26/16 03/26/16 Range/Units 09:26 11:52 17:14 RBC (4.30-5.90) m/uL Hgb (13.0-17.5) gm/dL Hct (39.0-53.0) % Sodium (137-145) mmol/L Creatinine (0.66-1.25) mg/dL Glucose (74-99) mg/dL POC Glucose (mg/dL) 185 H 138 H 110 H (75-99) mg/dL Calcium (8.4-10.2) mg/dL Total Bilirubin (0.2-1.3) mg/dL Total Protein (6.3-8.2) g/dL Albumin (3.5-5.0) g/dL 03/27/16 03/27/16 03/27/16 Range/Units 01:59 04:29 04:29 RBC 2.97 L (4.30-5.90) m/uL Hgb 8.9 L (13.0-17.5) gm/dL Hct 26.6 L (39.0-53.0) % Sodium 133 L (137-145) mmol/L Creatinine 0.65 L (0.66-1.25) mg/dL Glucose 157 H (74-99) mg/dL POC Glucose (mg/dL) 117 H (75-99) mg/dL Calcium 7.9 L (8.4-10.2) mg/dL Total Bilirubin 1.6 H (0.2-1.3) mg/dL Total Protein 5.0 L (6.3-8.2) g/dL Albumin 2.8 L (3.5-5.0) g/dL 03/27/16 Range/Units 07:53 RBC (4.30-5.90) m/uL Hgb (13.0-17.5) gm/dL Hct (39.0-53.0) % Sodium (137-145) mmol/L Creatinine (0.66-1.25) mg/dL Glucose (74-99) mg/dL POC Glucose (mg/dL) 177 H (75-99) mg/dL Calcium (8.4-10.2) mg/dL Total Bilirubin (0.2-1.3) mg/dL Total Protein (6.3-8.2) g/dL Albumin (3.5-5.0) g/dL Microbiology - Last 24 Hours (Table) 03/25/16 12:00 Gram Stain - Preliminary Sputum - Imaging and Cardiology Chest x-ray: image reviewed Assessment and Plan (1) Coronary artery disease Status: Acute (2) Hypertension Status: Acute (3) Hyperlipidemia Status: Acute (4) Diabetes mellitus Status: Acute Plan: 1. Continue aspirin, Plavix, beta micaela, statin. 2. Will change parameters on beta micaela to hold for systolic blood pressure less than 100. 3. Encourage incentive spirometry use and effective coughing. 4. Increase activity, up to chair minimum 3 times daily, attempt ambulation. 5. Will DC DAMION drain, pacemaker wires. 6. We will give Lasix 40 mg IV push 1 today 7. Nasal swab positive for MRSA, continue mupiracin. 8. GI/DVT prophylaxis 9. May transfer to stepdown unit when bed available. Time with Patient: Greater than 30
--- NOTE | 2016-03-27 14:18 | PN ---
DATE OF SERVICE: 03/25/2016 INTERVAL HISTORY: Mr. Chan is a 75-year-old male admitted to the hospital with complaints of chest pain, found to have 2 vessel coronary artery disease, status post coronary artery bypass graft day #2. The patient is currently extubated. He is able to sit in a chair. Pain is fairly controlled. Chest tubes are in place. Chest x-ray showed multiple lines and catheters and mild infiltrate within the right lung base, minimal atelectasis near the chest tube insertion site. REVIEW OF SYSTEMS: CONSTITUTIONAL: No fevers or chills. RESPIRATORY: No cough or sputum production. CARDIOVASCULAR: No worsening shortness of breath. CARDIOVASCULAR: No chest pain. No leg swelling. ABDOMEN: No nausea or vomiting. : No hematuria or dysuria. PSYCHIATRY: Negative. SKIN: Negative. All other 14-point review of systems negative except as above. CURRENT MEDICATIONS: Reviewed. PHYSICAL EXAMINATION: A 75-year-old male, sitting in a chair comfortably, awake, alert, oriented x3. Appears to be in no apparent distress. VITALS: Blood pressure is 113/67, pulse is 93, respirations 18, temperature afebrile, pulse ox 97% on nasal cannula. HEENT: Atraumatic, normocephalic. NECK: Supple. No JVD. CVS: S1 and S2 heard. No murmurs or rubs. LUNGS: Bilateral air entry is present. Expiratory wheezing positive. No rhonchi crackles. Nonlabored breathing. ABDOMEN: Soft, nontender. Bowel sounds present. MIRROR DEPARTMENT SUPERVISOR: Awake, alert, oriented x3. No focal deficits. Cranial nerves grossly intact. EXTREMITIES: No edema. Pulses palpable. PSYCHIATRIC: Cooperative. LABORATORY DATA: WBC 10.6, hemoglobin 8.6, platelets 90, sodium 31, potassium 4.4, chloride 10, bicarb is 23, BUN 14, creatinine 0.6. IMPRESSION: 1. Status post coronary artery bypass graft day #2. 2. Right-sided infiltrate, possible pneumonia. 3. Hypertension. 4. Hyperkalemia. 5. Diabetes type 2, [id number]. 6. Benign prostatic hypertrophy. 7. Nicotine abuse. 8. Chronic obstructive pulmonary disease, not in exacerbation. 9. DVT prophylaxis, heparin subcutaneous. DISCUSSION AND PLAN: Continue current management. Continue breathing treatments. Continue aspirin, statins and beta blockers. Antibiotics in the form of levofloxacin. Continue current management. Further recommendations based on the clinical course.
--- NOTE | 2016-03-27 14:36 | PN ---
DATE OF SERVICE: 03/26/2016 INTERVAL HISTORY: Mr. Chan is a 75-year-old male admitted to the hospital with chest pain and found to have 2-vessel disease and underwent cardiac catheterization and patient subsequently underwent coronary artery bypass graft, postop day 3. Currently able to sit in a chair and no worsening short of breath or chest pain. Chest tubes are in place. Chest x-ray showed developing minimal right pleural effusion and stable left-sided chest tube. Otherwise, patient denied any complaints now. REVIEW OF SYSTEMS: CONSTITUTIONAL: No fever, no chills. RESPIRATORY: No cough or sputum production. CARDIOVASCULAR: No worsening short of breath. No leg swelling. ABDOMEN: No nausea or abdominal pain. GENITOURINARY: Negative. ENDOCRINE: Negative. PSYCHIATRY: Negative. All other 14-point review of systems negative, except as above. Current medications include Altus 5/325, DuoNeb, aspirin, atorvastatin, Cepacol, Dulcolax, Symbicort, Plavix, heparin, NovoLog, Humulin, Toradol, Lactated ringers, levofloxacin, Reglan, metoprolol, Zofran, Protonix, senna. PHYSICAL EXAM: A 75-year-old male lying in bed comfortably; awake, alert, oriented X3, appears in no apparent distress. VITALS: Blood pressure is 123/68, pulse is 96, respirations 16, temperature afebrile, pulse ox is 97% on 3 L nasal cannula. HEENT: Atraumatic, normocephalic. Neck is supple. No JVD. CVS EXAM: S1, S2 heard. No murmurs, no gallop. LUNGS: Bilateral air entry is present, basilar crackles are positive on the right side. Nonlabored breathing. Minimal expiratory wheezing. Abdomen is soft, obese. Bowel sounds are present. INDUSTRIAL SERVICE TECHNICIAN: Awake, alert, oriented x3. No focal neurologic deficits. Cranial nerves grossly intact. EXTREMITIES: No edema. Pulses palpable bilaterally. No clubbing or cyanosis. PSYCHIATRIC: Cooperative. LABORATORY DATA: WBC is 9.3, hemoglobin 8.9, platelets 114, sodium 131, potassium 4.0, chloride 99, bicarb is 24, BUN 17, creatinine 0.6. Albumin 2.6. Chest x-ray reviewed. IMPRESSION: 1. Coronary artery bypass graft, status post operative day 3. 2. Postoperative mechanical ventilation, currently extubated. 3. Right mid-lung infiltrate, possible pneumonia. Continue with antibiotics. 4. Hypertension. 5. Hyperlipidemia. 6. Diabetes type 2, [id number]. 7. Chronic obstructive pulmonary disease. DISCUSSION AND PLAN: Continue with the current antibiotics and beta blockers and statins. Pulmonary and Cardiology are following the patient. Further recommendation based on the clinical course.
[2016-03-27 17:43] LABS: Glucose,Whole Blood 221 mg/dL (75-99)
[2016-03-27] MEDS: IPRATROPIUM-ALBUTEROL 3 ML NEB INHALATION PRN (19:53)
[2016-03-27 20:22] LABS: Glucose,Whole Blood 211 mg/dL (75-99)
[2016-03-27] MEDS ORDERED: INSULIN GLARGINE 100 UNIT/ML 10 ML VIAL SQ SCH (21:00)
[2016-03-27] MEDS: SENNOSIDES-DOCUSATE SODIUM 1 EACH TAB PO SCH (21:41)
[2016-03-28] MEDS: HEPARIN SODIUM,PORCINE 5,000 UNIT/ML 1 ML VIAL SQ SCH ×4 (00:37→23:36)
[2016-03-28 04:52] LABS: Glucose,Whole Blood 155 mg/dL (75-99)
[2016-03-28] MEDS: INSULIN LISPRO (humaLOG) 300 UNIT/3 ML VIAL SQ SCH ×7 (04:52→22:00)
[2016-03-28 05:00] LABS: ALT 34 U/L (21-72); AST 20 U/L (17-59); Alkaline Phosphatase 42 U/L (38-126); Anion Gap 8 mmol/L; Blood Urea Nitrogen 10 mg/dL (9-20); Calcium 7.8 mg/dL (8.4-10.2); Carbon Dioxide 27 mmol/L (22-30); Chloride 98 mmol/L (98-107); Glucose 143 mg/dL (74-99); Non-African American GFR(MDRD) >60 (>60 ml/min/1.73 sqM); Potassium 3.9 mmol/L (3.5-5.1); Sodium 133 mmol/L (137-145); Total Bilirubin 1.2 mg/dL (0.2-1.3); Total Protein 4.7 g/dL (6.3-8.2)
[2016-03-28 07:04] LABS: Basophils % (A) 0 %; CH 29.4; CHCM 32.8; Eosinophils # (A) 0.1 k/uL (0-0.7); Eosinophils % (A) 2 %; HDW 2.51; HGB 8.3 gm/dL (13.0-17.5); Luc # (Auto) 0.13; Luc % (Auto) 2; Lymphocytes # (A) 1.2 k/uL (1.0-4.8); Lymphocytes % (A) 18 %; MCH 29.7 pg (25.0-35.0); MCV 89.9 fL (80.0-100.0); Mean Platelet Volume 7.3; Monocytes # (A) 0.7 k/uL (0-1.0); Monocytes % (A) 11 %; Neutrophils # (A) 4.3 k/uL (1.3-7.7); Neutrophils % (A) 67 %; RBC 2.78 m/uL (4.30-5.90); RDW 13.6 % (11.5-15.5); WBC 6.4 k/uL (3.8-10.6); WBC (Perox) 6.43
[2016-03-28] MEDS ORDERED: INSULIN LISPRO (humaLOG) 300 UNIT/3 ML VIAL SQ SCH (07:30)
[2016-03-28] MEDS: SYMBICORT 160-4.5 MCG INHALER INHALATION SCH ×2 (07:36→19:27)
[2016-03-28] MEDS: IPRATROPIUM-ALBUTEROL 3 ML NEB INHALATION PRN (07:36)
[2016-03-28] MEDS ORDERED: POTASSIUM CHLORIDE ER 20 MEQ TAB.ER PO SCH (08:00)
[2016-03-28 08:18] LABS: Glucose,Whole Blood 221 mg/dL (75-99)
--- NOTE | 2016-03-28 08:44 | XR ---
EXAMINATION TYPE: XR chest 1V portable DATE OF EXAM: 03/28/2016 6:38 AM Comparison: 03/27/2016 Clinical History: 75-year-old male Post cabg Findings: Median sternotomy wires are present with post-CABG clips. Heart remains upper limits of normal in siz e. A left basilar drain remains in place. Now visualized is a trace left apical pneumothorax, likely less than 5% in volume. Mild interstitial densities are similar, possible mild pulmonary vascular con gestion. Impression: Possible mild pulmonary vascular congestion. A left chest tube is present and a trace left apical pne umothorax is now seen, less than 5% by volume.
--- NOTE | 2016-03-28 08:56 | P.PN ---
Subjective Progress note dated 03/28/2016 This a 75-year-old gentleman who had heart catheterization performed on March 21. He is status post bypass grafting postop day #5. The patient is doing relatively well. Sitting up in the chair. So the chest tube in place. The patient that was placed on Levaquin but doesn't really needed this point. His chest x-rays improved. He's waiting to be discharged out to the sixth floor. No particular issues. He's currently on Cordarone and 0.5 mg/m be switched to oral Cordarone and also on O2 at 3 L. He is doing well with his incentive spirometer. Objective - Vital Signs Vital signs: Vital Signs Temp 98.3 F 03/28/16 04:00 Pulse 100 03/28/16 07:58 Resp 19 03/28/16 04:00 BP 93/61 03/28/16 04:00 Pulse Ox 98 03/28/16 04:00 Intake & Output 03/27/16 03/28/16 03/28/16 18:59 06:59 18:59 Intake Total 1778.745 120 10 Output Total 2695 575 Balance -916.255 -455 10 Weight 97 kg Intake: IV 320 120 10 Lactated Ringers 1,000 ml 320 120 10 @ 10 mls/hr IV .Q24H JG Rx#:[id number] Intake, IV Titration 978.745 Amount Amiodarone 450 mg In 478.745 Dextrose 5% in Water 250 ml @ 1 MG/MIN 34.53 mls/ hr IV .Q7H31M JG Rx#: [id number] Dextrose 5% in Water 100 100 ml @ 618 mls/hr IV .Q10M ONE with Amiodarone 150 mg Rx#:[id number] Dextrose 5% in Water 100 200 ml @ 618 mls/hr IV .Q10M ONE with Amiodarone 150 mg Rx#:[id number] Magnesium Sulfate-D5w Pmx 200 1 gm In Dextrose/Water 1 100ml.bag @ 100 mls/hr IVPB Q1H JG Rx#: [id number] Oral 480 Output: Chest Tube Drainage 200 140 Left Lateral Chest 200 140 Drainage 95 75 Right Calf 95 75 Urine 2400 360 Other: Voiding Method Urinal Urinal # Voids 1 1 # Bowel Movements 1 1 ABP, PAP, CO, CI - Last Documented Arterial Blood Pressure 131/60 Pulmonary Artery Pressure 21/14 Cardiac Output 5.4 Cardiac Index 2.5 - Exam No acute distress, oriented 3. HEENT examination is grossly unremarkable. Mucous membranes are moist. No oral lesions. Supple. Full range of motion. No adenopathy. Cardiovascular examination reveals regular rhythm rate. S1-S2 normal. Lungs clear breath sounds equal. Abdomen soft bowel sounds are heard. Extremities are intact. - Labs CBC & Chem 7: 03/28/16 04:23 03/28/16 04:23 Labs: Abnormal Lab Results - Last 24 Hours (Table) 03/27/16 03/27/16 03/27/16 Range/Units 12:33 17:40 20:21 RBC (4.30-5.90) m/uL Hgb (13.0-17.5) gm/dL Hct (39.0-53.0) % Sodium (137-145) mmol/L Glucose (74-99) mg/dL POC Glucose (mg/dL) 229 H 221 H 211 H (75-99) mg/dL Calcium (8.4-10.2) mg/dL Total Protein (6.3-8.2) g/dL Albumin (3.5-5.0) g/dL 03/28/16 03/28/16 03/28/16 Range/Units 04:23 04:23 04:50 RBC 2.78 L (4.30-5.90) m/uL Hgb 8.3 L (13.0-17.5) gm/dL Hct 25.0 L (39.0-53.0) % Sodium 133 L (137-145) mmol/L Glucose 143 H (74-99) mg/dL POC Glucose (mg/dL) 155 H (75-99) mg/dL Calcium 7.8 L (8.4-10.2) mg/dL Total Protein 4.7 L (6.3-8.2) g/dL Albumin 2.6 L (3.5-5.0) g/dL 03/28/16 Range/Units 07:58 RBC (4.30-5.90) m/uL Hgb (13.0-17.5) gm/dL Hct (39.0-53.0) % Sodium (137-145) mmol/L Glucose (74-99) mg/dL POC Glucose (mg/dL) 221 H (75-99) mg/dL Calcium (8.4-10.2) mg/dL Total Protein (6.3-8.2) g/dL Albumin (3.5-5.0) g/dL Microbiology - Last 24 Hours (Table) 03/25/16 12:00 Gram Stain - Final Sputum Sputum Culture - Final Assessment and Plan (1) Status post coronary artery bypass grafting Status: Acute (2) Coronary artery disease Status: Acute (3) Diabetes mellitus Status: Acute (4) Hyperlipidemia Status: Acute (5) Hypertension Status: Acute (6) S/P cardiac cath Status: Acute Plan: Plan dated 03/28/2016 From my perspective the patient can be transferred out of the ICU. He should stay on the Bactroban ointment for about 2 weeks post discharge. Levaquin can be discontinued. Cultures are negative. He is not acting infected. Additional recommendations suggestions are forthcoming. Time with Patient: Less than 30
[2016-03-28] MEDS ORDERED: CALCIUM GLUCONATE 1,000 MG in SODIUM CHLORIDE 0.9% 100 ML IVPB ONE (09:15)
[2016-03-28] MEDS: LACTATED RINGERS 1,000 ML IV SCH (09:17)
[2016-03-28] MEDS: AMIODARONE 450 MG in DEXTROSE 5% IN WATER 250 ML IV SCH ×4 (09:17→09:21)
[2016-03-28] MEDS: NICOTINE 21MG/24HR PATCH TRANSDERM SCH (09:18)
--- NOTE | 2016-03-28 09:18 | P.PN ---
Subjective Principal diagnosis: Coronary artery disease requiring coronary artery bypass grafting. Postop day #5 urgent coronary artery bypass grafting 2, with placement of the left internal mammary artery to the mid left anterior descending artery, reverse greater saphenous vein graft placed to the posterior descending coronary artery. Endoscopic vein harvesting of the right greater saphenous vein. Intraoperative transesophageal echocardiogram and epi-aortic scanning. Patient currently sitting up in chair in no apparent distress. Denies any complaints. Objective - Vital Signs Vital signs: Vital Signs Temp 98.0 F 03/28/16 08:00 Pulse 96 03/28/16 08:00 Resp 12 03/28/16 08:00 BP 137/67 03/28/16 08:00 Pulse Ox 97 03/28/16 08:00 Intake & Output 03/27/16 03/28/16 03/28/16 18:59 06:59 18:59 Intake Total 1778.745 120 10 Output Total 2695 575 Balance -916.255 -455 10 Weight 97 kg Intake: IV 320 120 10 Lactated Ringers 1,000 ml 320 120 10 @ 10 mls/hr IV .Q24H JG Rx#:[id number] Intake, IV Titration 978.745 Amount Amiodarone 450 mg In 478.745 Dextrose 5% in Water 250 ml @ 1 MG/MIN 34.53 mls/ hr IV .Q7H31M JG Rx#: [id number] Dextrose 5% in Water 100 100 ml @ 618 mls/hr IV .Q10M ONE with Amiodarone 150 mg Rx#:[id number] Dextrose 5% in Water 100 200 ml @ 618 mls/hr IV .Q10M ONE with Amiodarone 150 mg Rx#:[id number] Magnesium Sulfate-D5w Pmx 200 1 gm In Dextrose/Water 1 100ml.bag @ 100 mls/hr IVPB Q1H JG Rx#: [id number] Oral 480 Output: Chest Tube Drainage 200 140 Left Lateral Chest 200 140 Drainage 95 75 Right Calf 95 75 Urine 2400 360 Other: Voiding Method Urinal Urinal # Voids 1 1 # Bowel Movements 1 1 ABP, PAP, CO, CI - Last Documented Arterial Blood Pressure 131/60 Pulmonary Artery Pressure 21/14 Cardiac Output 5.4 Cardiac Index 2.5 - Constitutional General appearance: Present: cooperative, no acute distress - Respiratory Details: Lungs sounds diminished bilaterally, respirations even and nonlabored. Remains on 2 L nasal cannula. He was achieved 1250 mL on his incentive spirometer. Coughing appropriately. Left pleural chest tube in place, connected to -20 cm wall suction, draining serosanguineous fluid, 170 mL in the last 12 hours, re- 100 mL the last 24 hours. No air leak present. - Cardiovascular Details: S1, S2 present. No murmurs rubs or gallops. Regular rate and rhythm, sinus rhythm to sinus tach on telemetry. Chest stable. Heart hugger in place with patient demonstrating appropriate use. AV epicardial pacemaker wires are present and capped. Teds, SCDs in place. Trace bilateral lower extremity edema present. Palpable radial, DP, PT pulses present. - Gastrointestinal Gastrointestinal Comment(s): Abdomen soft, nontender, nondistended. Active bowel sounds 4 quadrants. Positive bowel movement yesterday. Tolerating diet. - Genitourinary Genitourinary Comment(s): Continues to void clear yellow urine per urinal. - Neurologic Neurologic: Present: CNII-XII intact - Musculoskeletal Musculoskeletal Comment(s): Able to ambulate in hallway with assistance 1. - Psychiatric Psychiatric: Present: A&O x's 3, appropriate affect, intact judgment & insight - Allied health notes Allied health notes reviewed: RT - Labs CBC & Chem 7: 03/28/16 04:23 03/28/16 04:23 Labs: Abnormal Lab Results - Last 24 Hours (Table) 03/27/16 03/27/16 03/27/16 Range/Units 12:33 17:40 20:21 RBC (4.30-5.90) m/uL Hgb (13.0-17.5) gm/dL Hct (39.0-53.0) % Sodium (137-145) mmol/L Glucose (74-99) mg/dL POC Glucose (mg/dL) 229 H 221 H 211 H (75-99) mg/dL Calcium (8.4-10.2) mg/dL Total Protein (6.3-8.2) g/dL Albumin (3.5-5.0) g/dL 03/28/16 03/28/16 03/28/16 Range/Units 04:23 04:23 04:50 RBC 2.78 L (4.30-5.90) m/uL Hgb 8.3 L (13.0-17.5) gm/dL Hct 25.0 L (39.0-53.0) % Sodium 133 L (137-145) mmol/L Glucose 143 H (74-99) mg/dL POC Glucose (mg/dL) 155 H (75-99) mg/dL Calcium 7.8 L (8.4-10.2) mg/dL Total Protein 4.7 L (6.3-8.2) g/dL Albumin 2.6 L (3.5-5.0) g/dL 03/28/16 Range/Units 07:58 RBC (4.30-5.90) m/uL Hgb (13.0-17.5) gm/dL Hct (39.0-53.0) % Sodium (137-145) mmol/L Glucose (74-99) mg/dL POC Glucose (mg/dL) 221 H (75-99) mg/dL Calcium (8.4-10.2) mg/dL Total Protein (6.3-8.2) g/dL Albumin (3.5-5.0) g/dL Microbiology - Last 24 Hours (Table) 03/25/16 12:00 Gram Stain - Final Sputum Sputum Culture - Final - Imaging and Cardiology Chest x-ray: image reviewed Assessment and Plan (1) Coronary artery disease Status: Acute (2) Hypertension Status: Acute (3) Hyperlipidemia Status: Acute (4) Diabetes mellitus Status: Acute Plan: 1. Continue aspirin, Plavix, beta micaela, statin. 2. DC Levaquin per pulmonology. 3. Encourage incentive spirometry use and effective coughing. 4. Increase activity, up to chair minimum 3 times daily, continue ambulation, continue with physical therapy. 5. DAMION drains left in yesterday secondary to increased output, pacer wires left in secondary to paroxysmal A. fib. Will DC DAMION drain, pacemaker wires,chest tube today . 6. Will start Lasix 20 mg IV push twice a day 7. Nasal swab positive for MRSA, continue mupiracin. recommend continuing 2 weeks post discharge per pulmonology. 8. GI/DVT prophylaxis 9. May transfer to stepdown unit when bed available. Time with Patient: Greater than 30
[2016-03-28] MEDS: ATORVASTATIN 40 MG TAB PO SCH (09:20)
[2016-03-28] MEDS: PANTOPRAZOLE 40 MG TABLET PO SCH (09:20)
[2016-03-28] MEDS: ASPIRIN 325 MG TAB PO SCH (09:20)
[2016-03-28] MEDS: CLOPIDOGREL 75 MG TAB PO SCH (09:21)
[2016-03-28] MEDS: METOPROLOL TARTRATE 12.5 MG TAB PO SCH (09:21)
[2016-03-28] MEDS: FUROSEMIDE 10 MG/ML 2 ML VIAL IV SCH ×2 (09:23→20:59)
[2016-03-28] MEDS: AMIODARONE 200 MG TAB PO SCH ×2 (09:23→20:58)
--- NOTE | 2016-03-28 10:32 | PN ---
DATE OF SERVICE: 03/27/2016 INTERVAL HISTORY: Mr. Chan is a 75-year-old male admitted to the hospital with complaints of chest pain and was found to have 2 vessel coronary artery disease, underwent coronary artery bypass graft, postop day #4. The patient currently denies any complaints of shortness of breath. Able to ( ). Chest tubes are in place. Chest x-ray showed mild bilateral pleural effusions. Left-sided chest tube is noted in place. No pneumothorax. Mild pulmonary vascular congestion, cardiomegaly and sternotomy. REVIEW OF SYSTEMS: CONSTITUTIONAL: No fever. No chills. RESPIRATORY: No cough or sputum production. CARDIOVASCULAR: No chest pain or short of breath. ABDOMEN: No nausea or vomiting or abdominal pain. GENITOURINARY: Negative. PSYCHIATRY: Negative. SKIN: Negative. All other 14-point review of systems negative as above. CURRENT MEDICATIONS: Reviewed. PHYSICAL EXAMINATION: A 75-year-old man, lying in bed comfortably, awake, alert and oriented x3, appears to be in no apparent distress. VITALS: Blood pressure is 110/55, pulse is 95, respiration 19, temperature afebrile, pulse ox 99% on 2 liters nasal cannula. HEENT: Atraumatic, normocephalic. NECK: Supple. No JVD. CVS: S1 and S2 heard. No murmurs or gallops. LUNGS: Bilaterally air entry present. Decreased breath sounds basally. Minimal crackles at the bases. Unlabored breathing. ABDOMEN: Soft, nontender, bowel sounds present. COURT REPORTER: Awake, alert, oriented x3. No focal deficits. EXTREMITIES: No edema. Pulses palpable bilaterally. PSYCHIATRIC: Cooperative. LABORATORY DATA: WBC 6.4, hemoglobin 8.9, platelets 154. INR 1.0. Sodium 133, potassium 3.9, chloride 99, bicarb is 25. BUN 13, creatinine 0.85. Albumin 2.8. Chest x-ray showed mild bilateral pleural effusions. IMPRESSION: 1. Coronary artery bypass graft, postop day 4. Postoperative mechanical ventilation, currently extubated. 2. Right mid lung infiltrate and possible pneumonia. 3. Bilateral small pleural effusions. 4. Hypotension. 5. Hyperlipidemia. 6. Type 2 diabetes mellitus, noninsulin dependent at home. 7. Chronic obstructive pulmonary disease. 8. DVT prophylaxis. 9. GI prophylaxis. DISCUSSION AND PLAN: The patient will be continued on empiric antibiotics. Continue with beta blockers and statins. Insulin dose will be changed to Lantus 30 units at bedtime along with 10 units with meals. Continue sliding scale as well. The patient does not use insulin at home. Continue current management. The patient was given a dose of IV Lasix today. Further recommendations based on the clinical course.
[2016-03-28] MEDS ORDERED: INSULIN LISPRO (humaLOG) 300 UNIT/3 ML VIAL SQ ONE (10:40)
--- NOTE | 2016-03-28 12:11 | P.PN ---
Progress Note - Text Epicardial pacemaker wires, left pleural chest tube, DAMION on DC'd without incident. Patient tolerated well.
[2016-03-28 13:12] LABS: Glucose,Whole Blood 213 mg/dL (75-99)
[2016-03-28 16:56] LABS: Glucose,Whole Blood 200 mg/dL (75-99)
[2016-03-28] MEDS: METOPROLOL TARTRATE 25 MG TAB PO SCH (20:59)
[2016-03-28] MEDS ORDERED: INSULIN GLARGINE 100 UNIT/ML 10 ML VIAL SQ SCH (21:00)
[2016-03-28] MEDS: SENNOSIDES-DOCUSATE SODIUM 1 EACH TAB PO SCH (21:02)
--- NOTE | 2016-03-28 21:13 | PN ---
Jeison Chan is a 75-year-old male patient who underwent coronary artery bypass grafting. He is doing well. He is lying in bed. He is very comfortable. He has only incisional chest discomfort. His breathing is good. He is not any respiratory distress. Vitals are stable. He is afebrile at 98.7 degrees Fahrenheit. His pulse rate is 101 beats a minute. He did have an episode of atrial fibrillation, but this terminated. He is on amiodarone. Respirations are 16 to 18, blood pressure is 100/54 mmHg. IMPRESSION: 1. Coronary artery disease, status post coronary artery bypass grafting. 2. Postoperative atrial fibrillation. SUGGEST: Increase metoprolol to 25 mg twice daily.
[2016-03-28 21:58] LABS: Glucose,Whole Blood 147 mg/dL (75-99)
[2016-03-29 04:21] LABS: Glucose,Whole Blood 122 mg/dL (75-99)
[2016-03-29 04:58] LABS: Basophils % (A) 0 %; CH 29.7; CHCM 33.6; Eosinophils # (A) 0.2 k/uL (0-0.7); Eosinophils % (A) 2 %; HCT 24.3 % (39.0-53.0); HGB 8.2 gm/dL (13.0-17.5); Luc # (Auto) 0.11; Luc % (Auto) 2; Lymphocytes # (A) 1.2 k/uL (1.0-4.8); Lymphocytes % (A) 18 %; MCHC 33.7 g/dL (31.0-37.0); Mean Platelet Volume 7.4; Monocytes # (A) 0.8 k/uL (0-1.0); Monocytes % (A) 11 %; Neutrophils # (A) 4.8 k/uL (1.3-7.7); Neutrophils % (A) 68 %; RBC 2.73 m/uL (4.30-5.90); RDW 13.8 % (11.5-15.5); WBC 7.1 k/uL (3.8-10.6); WBC (Perox) 7.44
[2016-03-29 05:16] LABS: Phosphorous 3.4 mg/dL (2.5-4.5)
[2016-03-29] MEDS: INSULIN LISPRO (humaLOG) 300 UNIT/3 ML VIAL SQ SCH ×5 (05:45→13:31)
[2016-03-29 05:52] LABS: Anion Gap 8 mmol/L; Blood Urea Nitrogen 12 mg/dL (9-20); Calcium 8.1 mg/dL (8.4-10.2); Carbon Dioxide 28 mmol/L (22-30); Chloride 99 mmol/L (98-107); Glucose 112 mg/dL (74-99); Magnesium 1.9 mg/dL (1.6-2.3); Non-African American GFR(MDRD) >60 (>60 ml/min/1.73 sqM); Potassium 4.2 mmol/L (3.5-5.1); Sodium 135 mmol/L (137-145)
[2016-03-29] MEDS: IPRATROPIUM-ALBUTEROL 3 ML NEB INHALATION PRN (07:38)
[2016-03-29] MEDS: SYMBICORT 160-4.5 MCG INHALER INHALATION SCH (07:39)
[2016-03-29 07:52] LABS: Glucose,Whole Blood 161 mg/dL (75-99)
[2016-03-29] MEDS: HEPARIN SODIUM,PORCINE 5,000 UNIT/ML 1 ML VIAL SQ SCH (08:45)
[2016-03-29] MEDS: CLOPIDOGREL 75 MG TAB PO SCH (08:46)
[2016-03-29] MEDS: ASPIRIN 325 MG TAB PO SCH (08:46)
[2016-03-29] MEDS: NICOTINE 21MG/24HR PATCH TRANSDERM SCH (08:46)
[2016-03-29] MEDS: ATORVASTATIN 40 MG TAB PO SCH (08:46)
[2016-03-29] MEDS: PANTOPRAZOLE 40 MG TABLET PO SCH (08:46)
[2016-03-29] MEDS: AMIODARONE 200 MG TAB PO SCH (08:46)
[2016-03-29] MEDS: MAGNESIUM SULFATE-D5W PMX 1 GM in DEXTROSE/WATER 1 100ML.BAG IVPB SCH ×2 (08:46→10:49)
[2016-03-29] MEDS: METOPROLOL TARTRATE 25 MG TAB PO SCH (08:47)
[2016-03-29] MEDS: FUROSEMIDE 10 MG/ML 2 ML VIAL IV SCH (08:47)
--- NOTE | 2016-03-29 09:14 | XR ---
EXAMINATION TYPE: XR chest 2V DATE OF EXAM: 03/29/2016 7:16 AM COMPARISON: Prior chest x-ray 28 March 2016 HISTORY: Postop chest tube removal TECHNIQUE: Frontal and lateral views of the chest are obtained. FINDINGS: Interval removal of patient's left-sided chest tube. Patient is post median sternotomy. He art is stable, pulmonary vascularity and jordan not significantly changed. No significant pneumothorax or pleural effusion. There are overlying cardiac leads. IMPRESSION: No evident complication status post chest tube removal.
--- NOTE | 2016-03-29 10:12 | P.PN ---
Subjective Progress note dated 03/28/2016 This a 75-year-old gentleman who had heart catheterization performed on March 21. He is status post bypass grafting postop day #5. The patient is doing relatively well. Sitting up in the chair. So the chest tube in place. The patient that was placed on Levaquin but doesn't really needed this point. His chest x-rays improved. He's waiting to be discharged out to the sixth floor. No particular issues. He's currently on Cordarone and 0.5 mg/m be switched to oral Cordarone and also on O2 at 3 L. He is doing well with his incentive spirometer. Progress note dated 03/29/2016 The patient is doing well. Probably can be discharged from the ICU. Currently on room air. No IV fluids. Apparently was no bed on 6 selective but asked why the patient has been transferred yet. Other than that though things are going well. Objective - Vital Signs Vital signs: Vital Signs Temp 98.4 F 03/29/16 08:00 Pulse 89 03/29/16 08:00 Resp 18 03/29/16 08:00 BP 97/56 03/29/16 08:00 Pulse Ox 179 H 03/29/16 08:00 Intake & Output 03/28/16 03/29/16 03/29/16 18:59 06:59 18:59 Intake Total 150 100 Output Total 1540 1650 0 Balance -1390 -1650 100 Weight 97.2 kg Intake: IV 50 Lactated Ringers 1,000 ml 50 @ 10 mls/hr IV .Q24H [facility] Rx#:[id number] Intake, IV Titration 100 100 Amount Calcium Gluconate 1,000 100 mg In Sodium Chloride 0.9 % 100 ml @ 100 mls/hr IVPB ONCE ONE Rx#: [id number] Magnesium Sulfate-D5w Pmx 100 1 gm In Dextrose/Water 1 100ml.bag @ 100 mls/hr IVPB Q1H [facility] Rx#: [id number] Output: Chest Tube Drainage 40 Left Lateral Chest 40 Drainage 225 Right Calf 225 Urine 1275 1650 0 Other: Voiding Method Urinal Urinal Urinal # Voids 1 ABP, PAP, CO, CI - Last Documented Arterial Blood Pressure 131/60 Pulmonary Artery Pressure 21/14 Cardiac Output 5.4 Cardiac Index 2.5 - Exam No acute distress, oriented 3. HEENT examination is grossly unremarkable. Mucous membranes are moist. No oral lesions. Supple. Full range of motion. No adenopathy. Cardiovascular examination reveals regular rhythm rate. S1-S2 normal. Lungs clear breath sounds equal. Abdomen soft bowel sounds are heard. Extremities are intact. - Labs CBC & Chem 7: 03/29/16 04:28 03/29/16 04:28 Labs: Abnormal Lab Results - Last 24 Hours (Table) 03/28/16 03/28/16 03/28/16 Range/Units 13:02 16:55 21:56 RBC (4.30-5.90) m/uL Hgb (13.0-17.5) gm/dL Hct (39.0-53.0) % Sodium (137-145) mmol/L Glucose (74-99) mg/dL POC Glucose (mg/dL) 213 H 200 H 147 H (75-99) mg/dL Calcium (8.4-10.2) mg/dL 03/29/16 03/29/16 03/29/16 Range/Units 04:18 04:28 04:28 RBC 2.73 L (4.30-5.90) m/uL Hgb 8.2 L (13.0-17.5) gm/dL Hct 24.3 L (39.0-53.0) % Sodium 135 L (137-145) mmol/L Glucose 112 H (74-99) mg/dL POC Glucose (mg/dL) 122 H (75-99) mg/dL Calcium 8.1 L (8.4-10.2) mg/dL 03/29/16 Range/Units 07:51 RBC (4.30-5.90) m/uL Hgb (13.0-17.5) gm/dL Hct (39.0-53.0) % Sodium (137-145) mmol/L Glucose (74-99) mg/dL POC Glucose (mg/dL) 161 H (75-99) mg/dL Calcium (8.4-10.2) mg/dL Assessment and Plan (1) Status post coronary artery bypass grafting Status: Acute (2) Coronary artery disease Status: Acute (3) Diabetes mellitus Status: Acute (4) Hyperlipidemia Status: Acute (5) Hypertension Status: Acute (6) S/P cardiac cath Status: Acute Plan: Plan dated 03/28/2016 From my perspective the patient can be transferred out of the ICU. He should stay on the Bactroban ointment for about 2 weeks post discharge. Levaquin can be discontinued. Cultures are negative. He is not acting infected. Additional recommendations suggestions are forthcoming. Next Plan dated 03/29/2016 The patient's doing well. The patient could be transferred out of the unit or to home. We'll leave that up to cardiothoracic surgery. No additional recommendations are made. The patient is doing well both in his oxygenation and use of incentive spirometer. Lung sounds are clear. Chest x-ray stable. Time with Patient: Less than 30
--- NOTE | 2016-03-29 11:24 | PN ---
DATE OF SERVICE: 03/28/2016 INTERVAL HISTORY: Mr. Chan is a 75-year-old male admitted to the hospital with the complain of chest pain, was found to have 2-vessel coronary artery disease, underwent coronary artery bypass graft, postop day 5. Patient currently being treated in the ICU. Denied any chest pain, short of breath. Patient had a chest tube removed today. Chest x-ray showed possible mild pulmonary vascular congestion and trace left apical pneumothorax has been 5% by volume. Otherwise, blood sugar is 221, Lantus and aspirin dose has been increased. Otherwise, no acute overnight issues. No fever, no chills. REVIEW OF SYSTEMS: CONSTITUTIONAL: No fever. No chills. No weakness or malaise. RESPIRATORY: No cough or sputum production. CARDIOVASCULAR: No chest pain, no shortness of breath, no leg swelling. ABDOMEN: No nausea, vomiting, or abdominal pain. GENITOURINARY: Negative. PSYCHIATRY: Negative. SKIN: Negative. MUSCULOSKELETAL: Negative. All other 14-point review of systems negative except as above. Current medications reviewed. PHYSICAL EXAMINATION: A 75-year-old male, lying in the bed, comfortable. Awake, alert, oriented x3. Patient in no apparent distress. VITALS: Blood pressure is 100/55, pulse is 91, respirations 22, temperature afebrile, pulse ox of 94% on nasal cannula. HEENT: Atraumatic, normocephalic. Neck is supple. No JVD. CVS EXAM: S1, S2 heard. No murmurs, no gallop. LUNGS: Bilateral air entry is present. No wheezing. Nonlabored breathing, minimal crackles at the right base. Abdomen is soft, nontender, bowel sounds present. NEUROLOGICAL: Alert and oriented x3. No focal neurologic deficits. EXTREMITIES: No edema. Pulses palpable bilaterally. PSYCHIATRIC: Cooperative. LABORATORY DATA: WBC 6.4, hemoglobin 8.3, platelets 181, sodium 133, potassium 3.9, chloride 98, bicarb is 27. BUN 10, creatinine 0.7, calcium 7.8, albumin 2.6. IMPRESSION: 1. Coronary artery bypass graft, postoperative day 5. 2. Postoperative mechanical ventilation, patient was extubated. 3. Mild pulmonary vascular congestion. 4. Hyperlipidemia. 5. Hypertension. 6. Type 2 diabetes mellitus, [id number] at home. 7. Chronic obstructive pulmonary disease. 8. Deep venous thrombosis prophylaxis. 9. Gastrointestinal prophylaxis. 10. FULL CODE. DISCUSSION AND PLAN: A 75-year-old male patient will be continued on aspirin, statins, beta blockers and while patient was empiric antibiotics, which have been discontinued and continued on incentive spirometry. Increase the Lantus to 32 units q.h.s. and aspart to 12 units t.i.d. a.c. and continue to follow CBC. Will continue with the current management and further recommendations will be made regarding clinical course.
[2016-03-29 12:41] LABS: Glucose,Whole Blood 239 mg/dL (75-99)
--- NOTE | 2016-03-29 13:26 | P.DS ---
Providers Date of admission: 03/23/16 07:40 Expected date of discharge: 03/29/16 Attending physician: Zeb Buchanan Consults: 03/21/16 12:42 Consult Physician Routine Consulting Provider: Zeb Buchanan Consult Reason/Comments: evaluation for CABG Do you want consulting provider notified?: Already Contacted 03/21/16 12:50 Consult Anesthesia Routine Consulting Provider: Anesthesia,Services Consult Reason/Comments: Cardiac Surgery Pre-Op Consult Physician Routine Consulting Provider: Celia Rodas Consult Reason/Comments: pre-op cabg Do you want consulting provider notified?: Yes Consult Physician Routine Consulting Provider: Janette Clifford Consult Reason/Comments: med management Do you want consulting provider notified?: Yes 03/23/16 15:51 Consult Physician Routine Consulting Provider: Jefe Ellington 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 He underwent a cardiac workup which led to a cardiac catheterization. Cardiac catheterization revealed significant coronary artery disease not amenable to percutaneous intervention and a consultation for cardiac surgery was obtained. His surgery was performed on 03/23/2016-please see the operative note for details. Patient remained in the intensive care unit all he was weaned from the ventilator and inotropic support. He was discharged home on , his sixth postoperative day in normal sinus rhythm, afebrile with stable vital signs tolerating his diet. Patient Condition at Discharge: Fair Plan - Discharge Summary New Discharge Prescriptions: HYDROcodone/APAP 5-325MG [Leon 5-325] 1 - 2 tab PO Q6HR PRN #30 tab PRN Reason: Pain Amiodarone [Cordarone] 200 mg PO DAILY #35 tab Aspirin 325 mg PO DAILY #30 tab Atorvastatin [Lipitor] 40 mg PO DAILY #30 tab Clopidogrel [Plavix] 75 mg PO DAILY #30 tab Furosemide [Lasix] 20 mg PO DAILY #5 tab Metoprolol Tartrate [Lopressor] 25 mg PO BID #60 tab Potassium Chloride ER [K-Dur 10] 10 meq PO DAILY #5 tab Discharge Medication List Lisinopril [Zestril] 10 mg PO DAILY 08/20/13 [History] Dutasteride/Tamsulosin HCl [Herminia 0.5-0.4 mg Capsule] 1 tab PO DAILY 02/24/15 [ History] Pioglitazone HCl 45 mg PO DAILY 02/24/15 [History] glyBURIDE/METFORMIN HCL [glyBURIDE/METFORMIN HCL 5-500 mg] 2 tab PO [id number] [History] Fish Oil/Dha/Epa [Fish Oil 1,200 mg Fish Oil] 1 cap PO DAILY 03/21/16 [History] Amiodarone [Cordarone] 200 mg PO DAILY #35 tab 03/29/16 [Rx] Aspirin 325 mg PO DAILY #30 tab 03/29/16 [Rx] Atorvastatin [Lipitor] 40 mg PO DAILY #30 tab 03/29/16 [Rx] Clopidogrel [Plavix] 75 mg PO DAILY #30 tab 03/29/16 [Rx] Furosemide [Lasix] 20 mg PO DAILY #5 tab 03/29/16 [Rx] HYDROcodone/APAP 5-325MG [Leon 5-325] 1 - 2 tab PO Q6HR PRN #30 tab 03/29/16 [ Rx] Metoprolol Tartrate [Lopressor] 25 mg PO BID #60 tab 03/29/16 [Rx] Potassium Chloride ER [K-Dur 10] 10 meq PO DAILY #5 tab 03/29/16 [Rx] Follow up Appointment(s)/Referral(s): Celia Rodas MD [STAFF PHYSICIAN] - 04/17/16 2:15 pm [facility], [NON-STAFF] - 1 Week Zeb Buchanan MD [STAFF PHYSICIAN] - 04/14/16 10:30 am Jefe Ellington MD [STAFF PHYSICIAN] - 04/06/16 9:15 am Discharge Disposition: HOME WITH HOME HEALTH SERVICES
[2016-03-29 13:27] VITALS: BP 106/56; PULSE 90; RESP 21; TEMP 98.6
--- NOTE | 2016-03-29 14:35 | P.ARTDOP ---
Arterial Doppler LOWER EXTREMITY ARTERIAL DOPPLER: DATE OF SERVICE: 03/22/2016 Reason for study: Pre-CABG. Doppler waveforms: Multiphasic bilaterally throughout. Pulse volume recording: Normal configuration. Pressure gradients: None. Ankle-brachial indices: Greater than 1 bilaterally. Toe pressures: 97 on the right, 97 on the left Impression: Normal study.
--- NOTE | 2016-03-29 14:37 | P.VSCSTY ---
Greater Saphenous Vein Mapping This is bilateral lower extremity greater saphenous vein mapping. Date of service 03/22/2016 Vein quality and ultrasound appearance normal. Vein size groin right 9.1 x 6.0 groin left 7.7 x 7.4 High thigh right 4.5 x 5.4 high thigh left 3.8 x 5.3 Mid thigh right 3.4 x 4.2 mid thigh left 3.7 x 4.1 Above-knee right 3.5 x 5.0 above- knee left 4.2 x 4.7 Below knee right 3.6 x 4.3 below-knee left 4.0 x 4.3 Mid calf right 3.6 x 4.2 mid calf left 3.4 x 4.0 Ankle right 2.9 x 4.2 ankle left 4.2 x 5.1 Impression usable bilateral greater saphenous vein.
--- NOTE | 2016-03-29 20:53 | PN ---
I saw Jeison Chan this morning. He was doing well. He was lying flat in bed. He is comfortable. His vitals are stable. Blood pressure 106/56 mm of mercury, respirations normal. Pulse rate is normal and head and neck examination is normal. Heart sounds are normal. No S3 gallop or no murmurs. Breath sounds are reduced only at the left base. No crackles. ABDOMEN: Soft, nontender. EXTREMITIES: Warm. No edema. IMPRESSION: Coronary artery disease, status post coronary artery bypass grafting. PLAN: Discharge today. His medications were reviewed. He is on amiodarone 200 mg p.o. daily, which will be stopped in one month, aspirin, atorvastatin, Plavix, Lasix, metoprolol and potassium. 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
== END 2016-03-29 17:54 | disposition home health service (06) | DRG 233 ==
LOC: CATHCVL 10:48 → 6SEL 13:04 → 6ICU 03-23 07:27 → CATHCVL 03-23 07:39 → 6ICU 03-23 07:40
PROVIDERS: ADMIT Internal Medicine Cardiovascular Disease; ATTEND Surgery
PROC: B2111ZZ Fluoroscopy of Multiple Coronary Arteries using Low Osmolar Contrast (ICD-10-PCS; 2016-03-21)
PROC: 4A023N7 Measurement of Cardiac Sampling and Pressure, Left Heart, Percutaneous Approach (ICD-10-PCS; 2016-03-21 11:00)
PROC: 02100Z9 Bypass Coronary Artery, One Artery from Left Internal Mammary, Open Approach (ICD-10-PCS; 2016-03-23)
PROC: 06BP4ZZ Excision of Right Saphenous Vein, Percutaneous Endoscopic Approach (ICD-10-PCS; 2016-03-23)
PROC: 5A1221Z Performance of Cardiac Output, Continuous (ICD-10-PCS; 2016-03-23)
PROC: 021009W Bypass Coronary Artery, One Artery from Aorta with Autologous Venous Tissue, Open Approach (ICD-10-PCS; principal; 2016-03-23 08:00)
DX: I25.110 Atherosclerotic heart disease of native coronary artery with unstable angina pectoris (principal); I21.19 ST elevation (STEMI) myocardial infarction involving other coronary artery of inferior wall; J18.9 Pneumonia, unspecified organism; J90 Pleural effusion, not elsewhere classified; J98.11 Atelectasis; J44.9 Chronic obstructive pulmonary disease, unspecified; E87.5 Hyperkalemia; I48.0 Paroxysmal atrial fibrillation; E11.9 Type 2 diabetes mellitus without complications; F17.200 Nicotine dependence, unspecified, uncomplicated; N40.0 Benign prostatic hyperplasia without lower urinary tract symptoms; F41.9 Anxiety disorder, unspecified; H26.9 Unspecified cataract; I71.4 Abdominal aortic aneurysm, without rupture; I10 Essential (primary) hypertension; I34.0 Nonrheumatic mitral (valve) insufficiency; E78.2 Mixed hyperlipidemia; Z79.82 Long term (current) use of aspirin; Z79.84 Long term (current) use of oral hypoglycemic drugs; Z79.899 Other long term (current) drug therapy; Z85.820 Personal history of malignant melanoma of skin; Z82.49 Family history of ischemic heart disease and other diseases of the circulatory system; Y95 Nosocomial condition
CPT/HCPCS: 36620; 71010; 71020; 71250; 80048; 80053; 80061; 80074; 81003; 82330; 82805; 83036; 83735; 83880; 84100; 84132; 84443; 85025; 85027; 85520; 85610; 85730; 86850; 86891; 86900; 86901; 86920; 87070; 87086; 87205; 93005; 93458; 93880; 93923; 93970; 94002; 94150; 94640

== ENCOUNTER → 2017-07-19 | Outpatient (CLI) | payer MEDICARE, BC ==
--- NOTE | 2017-07-19 10:18 | CT ---
EXAMINATION TYPE: CT chest wo con DATE OF EXAM: 07/19/2017 COMPARISON: 03/22/2016 HISTORY: Solitary pulmonary nodule CT DLP: 712 mGycm. Automated Exposure Control for Dose Reduction was Utilized. TECHNIQUE: CT scan of the thorax is performed without IV contrast. FINDINGS: LUNGS: There is a stable 6 mm solid pulmonary nodule within the right middle lobe on series 4 image 3 9 in comparison to the prior of 03/22/2016. Lingular atelectasis has occurred in the interim. The prev iously seen minimal Cuffing is persistent. Near complete resolution of the previously seen bibasilar subsegmental atelect asis. No additional new pulmonary nodules are identified. Few scattered emphysematous cholecystitis a re again noted. The tracheobronchial tree is patent. MEDIASTINUM: Lack of IV contrast is noted to limit evaluation for mediastinal and especially hilar ad enopathy. There are no definitive greater than 1 cm hilar or mediastinal lymph nodes. Ascending thor acic aorta is upper limits normal size measuring 4.0 cm as seen on the prior exam. Right and left jessica n pulmonary arteries are again minimally dilated suggesting underlying pulmonary arterial hypertensio n. No cardiomegaly or pericardial effusion is seen. OTHER: Small calculi layering along the gallbladder body dependently compatible with cholelithiasis. Splenule is incidentally noted near the splenic hilum. Multilevel moderate degenerative change of the thoracic spine is noted. Median sternotomy wires are seen. No new suspicious osseous lesion. IMPRESSION: 1. Stable solitary 6 mm right sided pulmonary nodule. Follow-up CT is recommended in 12 months to ens ure stability. 2. Findings suggesting underlying pulmonary arterial hypertension. Redemonstration of upper limits no rmal size of the ascending thoracic aorta. 3. Cholelithiasis. 4. Persistent minimal bronchial wall thickening that can be seen in reactive airway disease.
== END | disposition home or self-care (01) ==
LOC: RADCTMAIN 08:53
PROVIDERS: ATTEND Internal Medicine
DX: R91.1 Solitary pulmonary nodule (principal)
CPT/HCPCS: 71250

== ENCOUNTER → 2018-08-30 | Outpatient (CLI) | payer MEDICARE, BC ==
--- NOTE | 2018-09-03 13:46 | PE ---
EXAMINATION TYPE: PET CT fusion skull to thigh DATE OF EXAM: 08/30/2018 COMPARISON: CT chest dated 07/19/2017 and 08/27/2018 HISTORY: Interval growth of a right middle lobe solitary pulmonary nodule. TECHNIQUE: Following the intravenous administration of 11.82 mCi of F-18 FDG, whole body images are performed from the skull base to the midthigh. Images are reviewed on the computer in the coronal, a xial, and sagittal planes. Reconstructed rotating images are created on independent workstation and reviewed on the computer. A localization and attenuation correction CT is performed in conjunction with the PET scan. SCAN: Initial Scan FINDINGS: Mediastinal background: 1.9 Abdominal background: 2.57 SKULL BASE AND NECK: No suspicious hypermetabolic activity. CHEST, MEDIASTINUM, AND HILAR REGION: No suspicious hypermetabolic uptake. 8 mm right middle lobe pul monary nodule is below mediastinal background with a maximum SUV of 0.65. Although there is increase in size of the previously seen 6 mm pulmonary nodule on the exam of 07/19/2018 to 8 mm on the exam of 08/27/2017, this at the lower threshold of PET CT. Therefore continued surveillance would be recommend ed as small neoplasm remains a possibility. ABDOMEN AND PELVIS: Multifocal bowel excretion of uptake are seen. Abdomen uptake is seen throughout numerous loops of small bowel and throughout the cecum and sigmoid colon with small bowel in the righ t lower quadrant having a maximum SUV of 8.6, the cecum having a SUV of 15.2, in the sigmoid colon izaguirre ving an SUV of 23.04. OSSEOUS STRUCTURES: No suspicious hypermetabolic activity. OTHER CT: There is rightward nasal septal deviation. Small mucosal retention cyst is seen in the infe rior left maxillary sinus. Atherosclerosis is present of the intracranial vasculature. Atherosclerosi s is also seen of the carotid arteries. Nonenlarged mediastinal lymph nodes are hypometabolic. Subcar inal lymph node is upper limits of normal in size measuring 1.4 cm. Post CABG changes the chest are s een. Heart is mildly enlarged. Minimal centrilobular emphysematous change is present with scattered a reas of atelectasis. The unenhanced liver, spleen, adrenal glands, and pancreas are grossly unremarka ble other than pancreatic parenchymal calcifications in the pancreatic head from chronic pancreatitis . Gallbladder demonstrates small calculi. No hydronephrosis is seen of the kidneys. Extensive atheros clerosis of the abdominal aorta and its branches are seen. Scattered colonic diverticula are seen wit hout pericolonic fat stranding. Urinary bladder is incompletely distended. Degenerative changes of th e spine are noted. Probable bone island seen of the left iliac bone on image 212. IMPRESSION: 1. Although there is interval growth of the now 8mm right middle lobe pulmonary nodule this is smooth ly marginated and does not currently exhibit any hypermetabolic uptake favored to be benign. However this is lower limits of size to be evaluated adequately on PET/CT and therefore continued surveillanc e is recommended with short-term follow-up CT in 6-12 months. 2. Multifocal hypermetabolic colonic and small bowel uptake/excretion most suspicious within the cecu m and sigmoid colon with SUV measuring up to 23.04 and the sigmoid colon, markedly above abdominal ba ckground. Colonoscopy is recommended for correlation.
== END | disposition home or self-care (01) ==
LOC: RADPETMAIN 15:28
PROVIDERS: ATTEND Internal Medicine
DX: R91.1 Solitary pulmonary nodule (principal)
CPT/HCPCS: 78815; A9552

== ENCOUNTER → 2018-12-14 | Outpatient (CLI) | payer MEDICARE, BC ==
--- NOTE | 2018-12-15 10:12 | XR ---
EXAMINATION TYPE: XR chest 2V DATE OF EXAM: 12/14/2018 COMPARISON: 06/17/2017 HISTORY: MRI clearance. TECHNIQUE: Frontal and lateral views of the chest are obtained. FINDINGS: Chronic interstitial prominence of the lung bases. There is no focal air space opacity, pl eural effusion, or pneumothorax seen. Post CABG changes are seen of the chest. No epicardial pacing leads are seen. The cardiac silhouette size is within normal limits. The osseous structures are int act. Mild degenerative changes of the spine. IMPRESSION: Chronic findings with no acute cardiopulmonary process. Post CABG changes of the chest w ith no epicardial pacing leads seen.
== END | disposition home or self-care (01) ==
LOC: RADXRMAIN 12:10
PROVIDERS: ATTEND Orthopaedic Surgery
DX: Z01.818 Encounter for other preprocedural examination (principal); J98.4 Other disorders of lung; Z95.1 Presence of aortocoronary bypass graft
CPT/HCPCS: 71046

== ENCOUNTER 2019-03-12 07:47 | Day surgery (SDC) | payer MEDICARE, BC ==
[2019-03-10 15:03] VITALS: BMI 28.5
[~2019-03-12 07:47] MED LIST changes: -ALPRAZolam 0.25 MG TAB PO PRN; -ALPRAZolam 0.5 MG TAB PO PRN; -ASPIRIN 325 MG TAB PO STA; -ATORVASTATIN 80 MG TAB PO STA; +LACTATED RINGERS 1,000 ML IV SCH; +LIDOCAINE 1% 20 ML VIAL (10MG/ML) FOR IV START INTRADERMA PRN; -NITROGLYCERIN SL TABS 0.4 MG TAB SUBLINGUAL PRN; -SODIUM CHLORIDE 0.9% 1,000 ML in EMPTY BAG 1 BAG IV ONE
[2019-03-12 08:08] VITALS: TEMP 97
[2019-03-12 08:22] LABS: Glucose,Whole Blood 169 mg/dL (75-99)
[2019-03-12] MEDS ORDERED: PROPOFOL 10 MG/ML 20 ML VIAL IV ONE (08:57)
--- NOTE | 2019-03-12 09:18 | P.PCN ---
Date of Procedure: 03/12/19 Procedure(s) Performed: BRIEF HISTORY: Patient is a 78-year-old pleasant white male scheduled for an elective colonoscopy as a part of evaluation of prior history of colon polyps and abnormal PET scan. PROCEDURE PERFORMED: Colonoscopy. PREOPERATIVE DIAGNOSIS: History of colon polyps/abnormal PET scan. IV sedation per Anesthesia. PROCEDURE: After informed consent was obtained, the patient, was brought into the endoscopy unit. IV sedation was administered by Anesthesia under continuous monitoring. Digital rectal examination was normal. Initially the Olympus CF-160 flexible video colonoscope was then inserted in the rectum, gradually advanced into the cecum without any difficulty. Careful examination was performed as the scope was gradually being withdrawn. Ileocecal valve and the appendiceal orifice were visualized and appeared normal. Prep was good.. Mucosa of the cecum, ascending colon, transverse colon, descending colon, sigmoid colon, and rectum appeared normal. Moderate left-sided diverticulosis seen. Retroflexion was performed in the rectum and no lesions were seen. The patient tolerated the procedure well. IMPRESSION: Normal-appearing colon from rectum to cecum with no evidence of colorectal neoplasia . Moderate sigmoid diverticulosis. RECOMMENDATIONS: Findings of this examination were discussed with the patient as well as his family. He was advised to have a repeat surveillance colonoscopy in 5 years from now because of the prior history of colon polyps.
[2019-03-12 09:40] VITALS: PULSE 59
[2019-03-12 09:50] VITALS: BP 135/80; RESP 18
== END 2019-03-12 10:07 | disposition home or self-care (01) ==
LOC: ORWHC2ENDO 07:47
PROVIDERS: ATTEND Internal Medicine Gastroenterology
DX: K57.30 Diverticulosis of large intestine without perforation or abscess without bleeding (principal); Z95.1 Presence of aortocoronary bypass graft; I10 Essential (primary) hypertension; I25.10 Atherosclerotic heart disease of native coronary artery without angina pectoris; E78.5 Hyperlipidemia, unspecified; E11.9 Type 2 diabetes mellitus without complications; F41.9 Anxiety disorder, unspecified; Z86.010 Personal history of colon polyps; Z88.8 Allergy status to other drugs, medicaments and biological substances; Z87.891 Personal history of nicotine dependence; Z79.84 Long term (current) use of oral hypoglycemic drugs; Z79.82 Long term (current) use of aspirin; Z79.899 Other long term (current) drug therapy
CPT/HCPCS: 45378; J2704

== ENCOUNTER → 2019-03-14 | Outpatient (CLI) | payer MEDICARE, BC ==
[2019-03-14 11:28] LABS: African American GFR (CKD) >90 (>60 ml/min/1.73 sqM); Blood Urea Nitrogen 19 mg/dL (9-20); Non-African American GFR(CKD) 88 (>60 ml/min/1.73 sqM)
--- NOTE | 2019-03-14 14:17 | CT ---
EXAMINATION TYPE: CT chest w con DATE OF EXAM: 03/14/2019 COMPARISON: 08/27/2018 HISTORY: Abnormal findings of lung field CT DLP: 503.3 mGycm, Automated exposure control for dose reduction was used. CONTRAST: Performed injected with 100 mL of Isovue 300. TECHNIQUE: Axial images were obtained at 5 mm thick sections. Reconstructed images are reviewed on [employer] computer in the coronal plane. FINDINGS: Portion of the thyroid visualized is normal. 0.5 cm nodule within the periphery of the right middle lobe. Series 4 image 39. Some mild increased l fuentes markings are within the lingula. No enlarged mediastinal or hilar adenopathy is evident. Couple of borderline size lymph nodes are p resent within the pretracheal space and periaortic region. These have diminished from the comparison. The ascending aorta diameter at the level of the main pulmonary artery is 4.1 cm. The main pulmonar y artery diameter at the bifurcation is 2.[address] sections are obtained through the upper abdomen. Cholelithiasis is present. IMPRESSIONS: 1. 0.5 cm nodule right middle lobe diminished from comparison. 2. Previous lymph nodes are borderline size at this time is slightly diminished from comparison.
== END | disposition home or self-care (01) ==
LOC: RADCTMAIN 10:48
PROVIDERS: ATTEND Internal Medicine
DX: R91.1 Solitary pulmonary nodule (principal); R91.8 Other nonspecific abnormal finding of lung field
CPT/HCPCS: 82565; 84520; 71260; 36415; Q9967

== ENCOUNTER → 2019-08-25 | Outpatient (CLI) | payer MEDICARE, BC ==
[2019-08-25 17:22] LABS: African American GFR (CKD) >90 (>60 ml/min/1.73 sqM); Blood Urea Nitrogen 21 mg/dL (9-20); Non-African American GFR(CKD) 89 (>60 ml/min/1.73 sqM)
--- NOTE | 2019-08-25 19:12 | CT ---
EXAMINATION TYPE: CT chest w con DATE OF EXAM: 08/25/2019 COMPARISON: 03/14/2019 HISTORY: f/u nodules CT DLP: 507.4 mGycm Automated exposure control for dose reduction was used. CONTRAST: CT scan of the chest is performed with IV Contrast, patient injected with 100 mL of Isovue 300. FINDINGS: LUNGS: 7.5 mm pulmonary nodule right middle lobe image 37 has enlarged from 5.3 mm previously. Stable calcified pleural-based nodule left lower lobe measures 3 mm image 32. Underlying hyperinflation com patible with COPD. MEDIASTINUM: There are no greater than 1 cm hilar or mediastinal lymph nodes. No pericardial effusi on is seen. Thoracic aorta is of normal caliber. The heart is not enlarged. UPPER ABDOMEN: Soft gallstones identified. OTHER: No additional significant abnormality is seen. IMPRESSION: 1. 7.5 mm pulmonary nodule right middle lobe image 37 has enlarged from 5.3 mm previously. Follow-up CT in 3 months is advised.
== END | disposition home or self-care (01) ==
LOC: RADCTMAIN 16:42
PROVIDERS: ATTEND Internal Medicine
DX: R91.8 Other nonspecific abnormal finding of lung field (principal); Z88.8 Allergy status to other drugs, medicaments and biological substances
CPT/HCPCS: 82565; 84520; 71260; 36415; Q9967

== ENCOUNTER → 2020-01-05 | Outpatient (CLI) | payer MEDICARE, BC ==
[2020-01-05 14:23] LABS: African American GFR (CKD) >90 (>60 ml/min/1.73 sqM); Blood Urea Nitrogen 22 mg/dL (9-20); Non-African American GFR(CKD) 85 (>60 ml/min/1.73 sqM)
--- NOTE | 2020-01-05 17:47 | CT ---
EXAMINATION TYPE: CT chest w con DATE OF EXAM: 01/05/2020 COMPARISON: CT chest 08/25/2019 and 03/14/2019 HISTORY: Follow up for lung nodule. CT DLP: 558.7 mGycm Automated exposure control for dose reduction was used. CONTRAST: CT scan of the chest is performed with IV Contrast, patient injected with 100ml mL of Isovue 300. FINDINGS: LUNGS: 7 x 5 mm solid pulmonary nodule of the right middle lobe (4:42) is unchanged versus 08/25/2019, and is similar to versus 03/14/2019 comparison when it also measured 7 x 5 mm (4:39). Mild centrilobu lar emphysema. No pleural effusion. No pneumothorax. The tracheobronchial tree is patent. MEDIASTINUM/SOFT TISSUES: No axillary, hilar, or mediastinal lymphadenopathy greater than 1 cm. Cardi ac size is normal. Calcified coronary artery disease. No pericardial effusion. There is ascending tho racic aortic ectasia measuring up to 3.8 cm. UPPER ABDOMEN: No adrenal nodule. Cholelithiasis. OSSEOUS: Degenerative changes of the spine. Sternotomy wires. IMPRESSION: 1. Right middle lobe 7 x 5 mm solid pulmonary nodule is not significantly changed versus 08/25/2019 a nd 03/14/2019 CT comparisons. Recommend follow-up CT in 6-12 months for stability. 2. Cholelithiasis.
== END | disposition home or self-care (01) ==
LOC: RADCTMAIN 13:47
PROVIDERS: ATTEND Internal Medicine
DX: R91.1 Solitary pulmonary nodule (principal); Z88.8 Allergy status to other drugs, medicaments and biological substances
CPT/HCPCS: 82565; 84520; 71260; 36415; Q9967

== ENCOUNTER → 2020-07-16 | Outpatient (CLI) | payer MEDICARE, BC ==
--- NOTE | 2020-07-16 17:33 | US ---
EXAMINATION TYPE: US carotid duplex BILAT DATE OF EXAM: 07/16/2020 COMPARISON: CLINICAL HISTORY: I25.10 Atherosclerotic heart disease of [place],I65.23. No HTN. No hx TIA EXAM MEASUREMENTS: RIGHT: Peak Systolic Velocity (PSV) cm/sec ----- Right CCA: 84.2 ----- Right ICA: 77.9 ----- Right ECA: 100.4 ICA/CCA ratio: 0.9 RIGHT: End Diastole cm/sec ----- Right CCA: 14.9 ----- Right ICA: 18.6 ----- Right ECA: 0.0 LEFT: Peak Systolic Velocity (PSV) cm/sec ----- Left CCA: 94.7 ----- Left ICA: 94.7 ----- Left ECA: 87.5 ICA/CCA ratio: 1.0 LEFT: End Diastole cm/sec ----- Left CCA: 14.0 ----- Left ICA: 16.7 ----- Left ECA: 0.0 VERTEBRALS (direction of flow): Right Vertebral: Antegrade Left Vertebral: Antegrade Rhythm: Normal No wall thickening. Plaque seen in bilateral bulbs. No elevated velocities. No significant stenosis . IMPRESSION: There is antegrade flow in the vertebral arteries. The images and measurements suggest u p to 25% stenosis in both internal carotid arteries. Criteria for Assigning % of Stenosis / Diameter reduction (Estimation based on the indirect measurements of the internal carotid artery velocities (ICA PSV). 1. Normal (no stenosis)=ICA PSV < 125 cm/s: ratio < 2.0: ICA EDV<40 cm/s. 2. Less than 50% stenosis=ICA PSV < 125 cm/s: ratio < 2.0: ICA EDV<40 cm/s. 3. 50 to 69% stenosis=ICA PSV of 125 to 230 cm/s: ration 2.0 ? 4.0: ICA EDV 40-100 cm/s. 4. Greater than 70% stenosis to near occlusion= ICA PSV > 230 cm/s: ratio > 4.0: ICA EDV > 100 cm/s. 5. Near occlusion= ICA PSV velocities may be low or undetectable: variable ratio and ICA EDV. 6. Total occlusion=unable to detect flow.
== END | disposition home or self-care (01) ==
LOC: RADUSWWP 10:58
PROVIDERS: ATTEND Family Medicine
DX: I25.10 Atherosclerotic heart disease of native coronary artery without angina pectoris (principal); I65.23 Occlusion and stenosis of bilateral carotid arteries
CPT/HCPCS: 93880

== ENCOUNTER 2020-08-18 07:39 | Day surgery (SDC) | payer MEDICARE, BC ==
[2020-08-16 14:53] VITALS: BMI 28.6
[~2020-08-18 07:39] MED LIST changes: -LIDOCAINE 1% 20 ML VIAL (10MG/ML) FOR IV START INTRADERMA PRN
[2020-08-18] MEDS ORDERED: LIDOCAINE 1% (10MG/ML) FOR IV START INTRADERMA ONE (08:34)
[2020-08-18] MEDS ORDERED: PROPOFOL 10 MG/ML 20 ML VIAL IV ONE (08:36)
[2020-08-18 08:37] LABS: Glucose,Whole Blood 165 mg/dL (75-99)
[2020-08-18 08:41] VITALS: TEMP 96.9
--- NOTE | 2020-08-18 08:53 | P.PCN ---
Date of Procedure: 08/18/20 Procedure(s) Performed: BRIEF HISTORY: Patient is a 80-year-old pleasant white male scheduled for an elective colonoscopy as a part of screening for colorectal neoplasia. PROCEDURE PERFORMED: Colonoscopy. PREOPERATIVE DIAGNOSIS: Screening for colon cancer. IV sedation per Anesthesia. PROCEDURE: After informed consent was obtained, the patient, was brought into the endoscopy unit. IV sedation was administered by Anesthesia under continuous monitoring. Digital rectal examination was normal. Initially the Olympus CF-160 flexible video colonoscope was then inserted in the rectum, gradually advanced into the cecum without any difficulty. Careful examination was performed as the scope was gradually being withdrawn. Ileocecal valve and the appendiceal orifice were visualized and appeared normal. Prep was excellent. Mucosa of the cecum, ascending colon, transverse colon, descending colon, sigmoid colon, and rectum appeared normal. Scattered sigmoid diverticulosis. Retroflexion was performed in the rectum and no lesions were seen. The patient tolerated the procedure well. IMPRESSION: Normal-appearing colon from rectum to cecum no evidence of colorectal neoplasia . Scattered sigmoid diverticulosis. RECOMMENDATIONS: Findings of this examination were discussed with the patient as well as his family. He was advised to be a high-fiber diet and take fiber supplements as needed.
[2020-08-18 09:11] VITALS: BP 123/85; PULSE 86; RESP 14
== END 2020-08-18 09:40 ==
LOC: ORWHC2ENDO 07:39
PROVIDERS: ATTEND Internal Medicine Gastroenterology
DX: Z12.11 Encounter for screening for malignant neoplasm of colon (principal); K57.30 Diverticulosis of large intestine without perforation or abscess without bleeding; I25.119 Atherosclerotic heart disease of native coronary artery with unspecified angina pectoris; I25.83 Coronary atherosclerosis due to lipid rich plaque; I10 Essential (primary) hypertension; E78.5 Hyperlipidemia, unspecified; Z87.891 Personal history of nicotine dependence; E11.9 Type 2 diabetes mellitus without complications; N40.0 Benign prostatic hyperplasia without lower urinary tract symptoms; Z95.1 Presence of aortocoronary bypass graft; Z79.84 Long term (current) use of oral hypoglycemic drugs; Z79.1 Long term (current) use of non-steroidal anti-inflammatories (NSAID); Z79.82 Long term (current) use of aspirin; Z79.899 Other long term (current) drug therapy; Z88.8 Allergy status to other drugs, medicaments and biological substances
CPT/HCPCS: J2704; G0121; 45378

== ENCOUNTER → 2024-01-29 | Outpatient (CLI) | payer MEDICARE, BC ==
[2024-01-29 19:46] LABS: ALT 15 U/L (10-49); AST 17 U/L (14-35); Chol/HDL Ratio 4.32 Ratio; LDL Cholesterol,Calculated 134.9 mg/dL (0.0-131.0)
== END | disposition home or self-care (01) ==
LOC: LABWHC1 12:18
PROVIDERS: ATTEND Internal Medicine Cardiovascular Disease
DX: E78.2 Mixed hyperlipidemia (principal); R07.2 Precordial pain
CPT/HCPCS: 36415; 80061; 84450; 84460

== ENCOUNTER 2024-02-05 08:25 | Day surgery (SDC) | payer MEDICARE, BC ==
[~2024-02-05 08:25] MED LIST changes: +ALPRAZolam 0.25 MG TAB PO PRN; +ALPRAZolam 0.5 MG TAB PO PRN; +HEPARIN SODIUM,PORCINE (1 ML) 2,500 UNIT in SODIUM CHLORIDE 0.9% 250 ML IRRIGATION PRN; +HEPARIN SODIUM,PORCINE 10,000 UNIT in SODIUM CHLORIDE 0.9% 1,000 ML IRRIGATION PRN; -LACTATED RINGERS 1,000 ML IV SCH; +NITROGLYCERIN SL TABS 0.4 MG TAB SUBLINGUAL PRN
[2024-02-05] MEDS: IV FLUID CONTINUATION 1,000 ML IV ONE (08:56)
[2024-02-05] MEDS: SODIUM CHLORIDE 0.9% 1,000 ML in EMPTY BAG 1 BAG IV SCH (08:56)
[2024-02-05 09:00] LABS: Basophils # (A) 0.1 k/uL (0-0.2); Basophils % (A) 1 %; Eosinophils # (A) 0.1 k/uL (0-0.7); Eosinophils % (A) 1 %; HCT 50.2 % (39.0-53.0); HGB 16.8 gm/dL (13.0-17.5); Lymphocytes # (A) 1.5 k/uL (1.0-4.8); Lymphocytes % (A) 17 %; MCH 29.6 pg (25.0-35.0); MCHC 33.4 g/dL (31.0-37.0); MCV 88.6 fL (80.0-100.0); Mean Platelet Volume 6.8; Monocytes # (A) 0.6 k/uL (0-1.0); Monocytes % (A) 8 %; Neutrophils # (A) 6.2 k/uL (1.3-7.7); Neutrophils % (A) 72 %; Platelet Count 200 k/uL (150-450); RBC 5.66 m/uL (4.30-5.90); RDW 12.8 % (11.5-15.5); WBC 8.6 k/uL (3.8-10.6)
[2024-02-05 09:03] LABS: Glucose,Whole Blood 160 mg/dL (70-110)
[2024-02-05 09:08] LABS: African American GFR (CKD) >90 (>60 ml/min/1.73 sqM); Anion Gap 7 mmol/L; Blood Urea Nitrogen 18 mg/dL (9-20); Calcium 9.1 mg/dL (8.4-10.2); Carbon Dioxide 27 mmol/L (22-30); Chloride 102 mmol/L (98-107); Glucose 165 mg/dL (74-99); Non-African American GFR(CKD) 88 (>60 ml/min/1.73 sqM); Potassium 4.1 mmol/L (3.5-5.1); Sodium 136 mmol/L (137-145)
[2024-02-05] MEDS: HEPARIN SODIUM,PORCINE (1 ML) 2,500 UNIT in SODIUM CHLORIDE 0.9% 250 ML IRRIGATION ONE (09:46)
[2024-02-05] MEDS: HEPARIN SODIUM,PORCINE 10,000 UNIT in SODIUM CHLORIDE 0.9% 1,000 ML IRRIGATION ONE (09:47)
[2024-02-05] MEDS: fentaNYL (PF) 50 MCG/1 ML VIAL IVP ONE (10:13)
[2024-02-05] MEDS: MIDAZOLAM 2 MG/2 ML VIAL IVP ONE (10:13)
[2024-02-05] MEDS: LIDOCAINE 1% INJ 10MG/ML (20 ML MDV) SQ ONE (10:17)
[2024-02-05] MEDS: IOPAMIDOL-370 100ML BTL INJ ONE (10:32)
[2024-02-05] MEDS ORDERED: RX INFO: IV CONTRAST WAS GIVEN 1 EACH MISC MISCELLANE PRN (11:04)
[2024-02-05] MEDS ORDERED: DEXTROSE 50% SYRINGE 50 ML IVP PRN ×2 (11:05)
[2024-02-05 15:12] LABS: Glucose,Whole Blood 133 mg/dL (70-110)
[2024-02-05] MEDS: INSULIN ASPART (NovoLOG) 100 UNIT/ML VIAL SQ SCH (17:53)
[2024-02-05] MEDS: ASPIRIN 325 MG TAB PO STA (17:53)
[2024-02-05 20:13] LABS: Glucose,Whole Blood 138 mg/dL (70-110)
[2024-02-05] MEDS: Simvastatin 40 MG Tab PO SCH (20:54)
--- NOTE | 2024-02-05 21:10 | CC ---
CARDIAC CATHETERIZATION REPORT INDICATION: Unstable angina in a patient with known CAD, status post prior bypass surgery. PROCEDURE NOTE: After obtaining informed consent, left heart catheterization and coronary angiogram were performed via the right femoral artery using standard Aspen catheters. The patient tolerated the procedure well. A femoral angiogram was performed and decision was made for manual hemostasis. Total sedation time was 24 minutes. The patient developed left bundle-branch block as we tried to obtain left ventricular end-diastolic pressure with a pigtail catheter, which he tolerated well hemodynamically and was stable throughout and did not have any bradycardia. FINDINGS: 1. Hemodynamics: Left ventricular end-diastolic pressure is 15 mm. There is no significant gradient across the aortic valve. 2. Left ventriculogram: Left ventriculogram is not performed. 3. Angiographic Data: a.[place] coronary arteries. Right coronary artery appears chronically occluded in its midportion and there is a significant stenosis in the proximal part. Left main coronary artery is free of significant disease, divides into left anterior descending coronary artery, circumflex coronary arteries. LAD is totally occluded proximally. There is mild to moderate nonobstructive disease involving circumflex coronary artery which is nondominant vessel. Selective injection of the bypass grafts, NAVARRO to LAD is patent. Selective injection of the venous graft to PDA. The graft is patent. Proximal and distal anastomotic sites free of disease and the [place] PDA is free of disease. CONCLUSIONS: 1. 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 2. Patent NAVARRO to LAD, and venous graft to the PDA. 3. Catheter-induced left bundle branch block. PLAN: The patient will be treated with optimal medical therapy. His symptoms are probably not related to significant CAD and could be due to small-vessel disease. We will treat him with aspirin and nitrates. We will hold the beta blockers at this time. MMODL / IJN: [id number] /
[2024-02-06 06:12] LABS: Glucose,Whole Blood 160 mg/dL (70-110)
[2024-02-06] MEDS: lisinopriL 10 MG TAB PO SCH (08:21)
[2024-02-06] MEDS: DAPAGLIFLOZIN PROPANEDIOL 10 MG TABLET PO SCH (08:21)
[2024-02-06] MEDS: TAMSULOSIN 0.4 MG CAP.ER.24H PO SCH (08:22)
[2024-02-06] MEDS: FINASTERIDE 5 MG TAB PO SCH (08:22)
[2024-02-06 11:37] LABS: Glucose,Whole Blood 280 mg/dL (70-110)
[2024-02-06] MEDS: ISOSORBIDE MONONITRATE ER 30 MG TAB.ER.24H PO SCH (11:58)
[2024-02-06 13:07] LABS: Potassium 4.2 mmol/L (3.5-5.1)
[2024-02-06 16:34] LABS: Glucose,Whole Blood 130 mg/dL (70-110)
[2024-02-06 20:10] LABS: Glucose,Whole Blood 225 mg/dL (70-110)
[2024-02-06] MEDS: ASPIRIN 81 MG PO SCH (20:22)
--- NOTE | 2024-02-06 23:04 | PN ---
PROGRESS NOTE SUBJECTIVE: This is an 83-year-old gentleman, I brought in electively for a cardiac catheterization following his presentation with symptoms suggestive of unstable angina. Cardiac catheterization revealed a chronically occluded right coronary artery and LAD with mild disease in the circ with patent NAVARRO to LAD and venous graft to PDA. The patient developed catheter-induced left bundle-branch block following left ventricular hemodynamics. He did not have any evidence of AV block and has remained asymptomatic. This morning, he is ambulating well without any symptoms. PHYSICAL EXAMINATION: VITAL SIGNS: Heart rate is 80 beats per minute, blood pressure is 117/68, respiratory rate 18. CHEST: Reveals good air entry bilaterally. HEART: Reveals first and second heart sounds and a systolic murmur at the apex. ABDOMEN: Soft. EXTREMITIES: Did not reveal any edema. Peripheral pulses are felt. LABORATORY DATA: Shows that the hemoglobin is 16.8. ASSESSMENT AND PLAN: 1. Chest pain, status post catheterization, advised medical therapy. 2. Catheter-induced left bundle branch block. Usually, the left bundle-branch block resolves he is asymptomatic, does not have any evidence of AV block. We will continue to watch him on telemetry for another day. I will obtain electrolytes and TSH on him. If necessary, I will seek input from EP. MMMELISSAL / IJN: [id number] /
[2024-02-07 05:44] LABS: Glucose,Whole Blood 144 mg/dL (70-110)
[2024-02-07 09:14] VITALS: RESP 16
[2024-02-07 11:31] LABS: Glucose,Whole Blood 147 mg/dL (70-110)
[2024-02-07 11:57] VITALS: BP 116/69; PULSE 80; TEMP 98
--- NOTE | 2024-02-07 22:52 | DS ---
DISCHARGE SUMMARY PROCEDURE PERFORMED: Left heart catheterization with bypass graft angiography. HISTORY OF PRESENT ILLNESS: This is an 83-year-old gentleman, who presented to me with episodes of chest pain and underwent cardiac catheterization. He has negative coronary artery disease with patent bypass grafts. During his cardiac catheterization, he developed a left bundle branch block. He did not have any symptoms and remained stable hemodynamically and did not have any evidence of AV block. I admitted him to watch him and after nearly 48 hours of observation, the patient did not have episodes of any symptoms of bradycardia. However, repeat EKG showed that he is still in a sinus rhythm with left bundle branch block. I spoke to Dr. Saucedo, the theater company producer about him and he did not think the patient needed any intervention on device therapy at this time. As he is asymptomatic, does not have any evidence of AV block. Condition at the time of discharge, stable hemodynamically. Afebrile. PHYSICAL EXAMINATION: VITAL SIGNS: Heart rate is 80 beats per minute, blood pressure is 157/69, respiratory rate is 18. CHEST: Reveals good air entry bilaterally. HEART: Reveals first and second heart sounds. Systolic murmur at the apex. ABDOMEN: Soft. EXTREMITIES: Did not reveal any edema. Peripheral pulses are felt. DISCHARGE MEDICATIONS: Include, 1. Glucovance. 2. Simvastatin. 3. Zestril. 4. Jardiance. 5. Aspirin. I am going to stop the metoprolol that he was on. FOLLOWUP: I will see him back in the office early next week. I am going to do a Holter monitor on discharge. MMODL / IJN: [id number] /
== END 2024-02-07 14:12 | disposition home or self-care (01) ==
LOC: CATHCVL 08:25 → 3SCARD 10:39 → CATHCVL 02-07 14:12
PROVIDERS: ATTEND Internal Medicine Cardiovascular Disease
DX: I25.110 Atherosclerotic heart disease of native coronary artery with unstable angina pectoris (principal); I25.82 Chronic total occlusion of coronary artery; Z95.1 Presence of aortocoronary bypass graft; I25.5 Ischemic cardiomyopathy; I97.790 Other intraoperative cardiac functional disturbances during cardiac surgery; I44.7 Left bundle-branch block, unspecified; I10 Essential (primary) hypertension; E11.9 Type 2 diabetes mellitus without complications; E78.2 Mixed hyperlipidemia; Z79.84 Long term (current) use of oral hypoglycemic drugs; Z79.82 Long term (current) use of aspirin; Z79.85 Long-term (current) use of injectable non-insulin antidiabetic drugs; Z79.899 Other long term (current) drug therapy; Z87.891 Personal history of nicotine dependence; Z88.8 Allergy status to other drugs, medicaments and biological substances; Z82.49 Family history of ischemic heart disease and other diseases of the circulatory system
CPT/HCPCS: 93459; 80051; 80048; 84443; 85025; 83036; S0138 ×2; J2250; J1644 ×2; J2003; Q9967; J3010